=== PATIENT | female | born 1955 | race Caucasian/White ===

== ENCOUNTER 2017-06-07 20:25 | Inpatient (IN) ==
[2017-06-07] MEDS ORDERED: PANTOPRAZOLE 40 MG VIAL IV STA (22:42)
[2017-06-07] MEDS ORDERED: ONDANSETRON 4 MG/2 ML VIAL IV STA (22:42)
[2017-06-07 22:57] LABS: Basophils # 0.1 10*3/uL (0.0-0.2); Basophils % 0.8 % (0.0-0.8); Eosinophils % 0.3 % (0.00-10.9); Hematocrit 36.3 VOL% (35.7-47.0); Hemoglobin 12.8 GM/DL (12.0-16.0); Immature Granulocytes % 0.4 %; Immature Granulocytes Absolute 0.04 #; Lymphocytes # 2.3 10*3/uL (1.4-4.0); Lymphocytes % 23.8 % (21.3-54.2); Mean Corpuscular HGB Conc 35.3 GM/DL (32-36); Mean Corpuscular Hemoglobin 39 PG (27-34); Mean Platelet Volume 12.8 FL (9.6-12.0); Monocytes # 0.6 10*3/uL (0.11-0.8); Monocytes % 5.7 % (1.7-12.7); NRBC # 0.02 10*3/uL; Neutrophils # 6.8 10*3/uL (1.4-7.4); Platelet Count 76 T/CUMM (130-400); Red Blood Count 3.27 MC/CUMM (3.8-5.5); Red Cell Distribution Width 17.1 % (9.3-17.3); White Blood Count 9.9 T/CUMM (4-12)
[2017-06-07 23:15] LABS: Alanine Aminotransferase 61 U/L (13-56); Albumin 3.4 G/DL (3.4-5.0); Alkaline Phosphatase 162 U/L (45-117); Amylase 26 U/L (25-115); Aspartate Amino Transferase 61 U/L (0-37); Blood Urea Nitrogen 9 MG/DL (7-18); Calcium 9.7 MG/DL (8.5-10.1); Glucose 460 MG/DL (74-106); Osmolality,Calculated 284.4 MOS/KG (273-304); Potassium 4.8 MMOL/L (3.5-5.1); Sodium 133 MMOL/L (136-145); Total Protein 6.9 G/DL (6.4-8.3); Troponin I Only < 0.015 NG/ML (0.00-0.045)
[2017-06-07] MEDS ORDERED: ONDANSETRON 4 MG/2 ML VIAL ONE (23:21)
[2017-06-07] MEDS ORDERED: PANTOPRAZOLE 40 MG VIAL IV ONE (23:21)
[2017-06-07 23:23] LABS: Ammonia 68 UMOL/L (11-32)
[2017-06-08] MEDS ORDERED: DEXTROSE 50% 25 GM/50 ML VIAL IV PRN (03:32)
[2017-06-08] MEDS ORDERED: ONDANSETRON 4 MG/2 ML VIAL IV PRN (03:32)
[2017-06-08] MEDS ORDERED: GLUCAGON 1 MG VIAL IM PRN (03:32)
[2017-06-08] MEDS ORDERED: SPIRONOLACTONE 100 MG TABLET PO PRN (03:37)
[2017-06-08] MEDS: LACTULOSE 20 GM/30 ML UDCUP PO SCH ×6 (05:11→23:24)
[2017-06-08] MEDS: INSULIN LISPRO 100 UNIT/ML SUBCUT SCH ×5 (05:11→21:22)
[2017-06-08] MEDS: SODIUM CHLORIDE 0.9% 1,000 ML IV SCH ×2 (05:12→23:24)
[2017-06-08 06:47] LABS: Basophils # 0.1 10*3/uL (0.0-0.2); Eosinophils # 0.1 10*3/uL (0.0-0.87); Eosinophils % 1.9 % (0.00-10.9); Hematocrit 28.7 VOL% (35.7-47.0); Immature Granulocytes % 0.5 %; Immature Granulocytes Absolute 0.04 #; Lymphocytes # 2.9 10*3/uL (1.4-4.0); Lymphocytes % 40.1 % (21.3-54.2); Mean Corpuscular HGB Conc 36.2 GM/DL (32-36); Mean Corpuscular Hemoglobin 39 PG (27-34); Mean Corpuscular Volume 108.7 FL (87-102); Mean Platelet Volume 13.3 FL (9.6-12.0); Monocytes # 0.5 10*3/uL (0.11-0.8); Monocytes % 7.3 % (1.7-12.7); Neutrophils # 3.6 10*3/uL (1.4-7.4); Neutrophils % 49.2 % (38.7-73.9); Red Blood Count 2.64 MC/CUMM (3.8-5.5); Red Cell Distribution Width 17.1 % (9.3-17.3); White Blood Count 7.3 T/CUMM (4-12)
[2017-06-08 06:49] LABS: Hemoglobin 10.4 GM/DL (12.0-16.0); Platelet Count 59 T/CUMM (130-400)
[2017-06-08 07:13] LABS: Albumin 2.6 G/DL (3.4-5.0); Bilirubin,Total 3.2 MG/DL (0.2-1.0); Calcium 8.6 MG/DL (8.5-10.1); Osmolality,Calculated 277.1 MOS/KG (273-304); Total Protein 5.2 G/DL (6.4-8.3)
[2017-06-08] MEDS: ESTROPIPATE 0.75 MG TABLET PO SCH (09:42)
[2017-06-08] MEDS: ASCORBIC ACID 500 MG TABLET PO SCH ×2 (09:44→21:22)
[2017-06-08] MEDS: FLUTICASONE 50 MCG NASAL SPRAY 16 GM BOTTLE BOTH NARES SCH (10:58)
[2017-06-08 17:57] LABS: Apearance,Urine CLEAR (Clear); Bacteria,Urine Occasional /HPF (Few); Bilirubin,Urine Negative (Negative); Blood, Urine Negative (Negative); Glucose,Urine (UA) >=500 mg/dL (Negative); Ketones,Urine 20 mg/dL (Negative); Mucus,Urine Occasional /LPF (Occasional); Nitrite,Urine Negative (Negative); Protein,Urine Negative; RBC,Urine <1 /HPF (0-4); Squamous Epithelial Cell,Urine Occasional /HPF (0-10); Urine Color Yellow (Yellow); Urine Specific Gravity 1.036 (1.001-1.035); WBC,Urine <1 /HPF (0-6)
[2017-06-08] MEDS ORDERED: CYCLOBENZAPRINE 10 MG TABLET PO SCH (21:00)
[2017-06-08] MEDS ORDERED: AMITRIPTYLINE 25 MG TABLET PO SCH (21:00)
[2017-06-09] MEDS: LACTULOSE 20 GM/30 ML UDCUP PO SCH ×3 (03:20→12:16)
[2017-06-09] MEDS: INSULIN LISPRO 100 UNIT/ML SUBCUT SCH ×2 (08:49→12:15)
[2017-06-09] MEDS: FLUTICASONE 50 MCG NASAL SPRAY 16 GM BOTTLE BOTH NARES SCH (08:50)
[2017-06-09] MEDS: ESTROPIPATE 0.75 MG TABLET PO SCH (08:50)
[2017-06-09] MEDS: ASCORBIC ACID 500 MG TABLET PO SCH (08:50)
[2017-06-09 10:17] VITALS: BP 139/66
== END 2017-06-09 12:50 | disposition home or self-care (01) | DRG 433 ==
LOC: N.ED 20:25 → N.EDINP 06-08 03:19 → N.2E 06-08 03:44 → N.5E 06-08 04:18
PROVIDERS: ADMIT Internal Medicine Infectious Disease; ATTEND Internal Medicine Infectious Disease

== ENCOUNTER 2017-08-15 22:55 | Inpatient (IN) ==
[2017-08-16] MEDS ORDERED: DEXTROSE 50% 25 GM/50 ML VIAL IV PRN (05:04)
[2017-08-16] MEDS ORDERED: ONDANSETRON 4 MG/2 ML VIAL IV PRN (05:04)
[2017-08-16] MEDS ORDERED: GLUCAGON 1 MG VIAL IM PRN (05:04)
[2017-08-16] MEDS ORDERED: ENOXAPARIN 40 MG/0.4 ML SYRINGE SUBCUT SCH (05:30)
[2017-08-16 05:43] LABS: Allen Test Positive; Pt O2 Delivery Device Room Air
[2017-08-16 05:44] LABS: ABG Base Excess 2.3 MMOL/L (-2.5-2.5); ABG HCO3 26.5 MMOL/L (20-26); ABG Oxygen Saturation 98.6 % (95-100); ABG PH 7.466 (7.35-7.45); ABG PO2 97.1 MM HG (80-95); ABG TCO2 23.5 MMOL/L (23-27)
[2017-08-16] MEDS: SODIUM CHLORIDE 0.9% 1,000 ML IV SCH ×2 (06:20→17:53)
[2017-08-16 06:23] LABS: Eosinophils # 0.1 10*3/uL (0.0-0.87); Eosinophils % 2.7 % (0.00-10.9); Hematocrit 26.8 VOL% (35.7-47.0); Hemoglobin 9.8 GM/DL (12.0-16.0); Immature Granulocytes % 0.2 %; Immature Granulocytes Absolute 0.01 #; Lymphocytes # 2.1 10*3/uL (1.4-4.0); Lymphocytes % 50.4 % (21.3-54.2); Mean Corpuscular HGB Conc 36.6 GM/DL (32-36); Mean Corpuscular Hemoglobin 38 PG (27-34); Mean Corpuscular Volume 103.5 FL (87-102); Mean Platelet Volume 11.7 FL (9.6-12.0); Monocytes # 0.3 10*3/uL (0.11-0.8); Monocytes % 7.8 % (1.7-12.7); NRBC # 0.02 10*3/uL; Neutrophils # 1.6 10*3/uL (1.4-7.4); Neutrophils % 37.9 % (38.7-73.9); Platelet Count 55 T/CUMM (130-400); Red Blood Count 2.59 MC/CUMM (3.8-5.5); Red Cell Distribution Width 14.2 % (9.3-17.3); White Blood Count 4.1 T/CUMM (4-12)
[2017-08-16 06:34] LABS: Ammonia 150 UMOL/L (11-32)
[2017-08-16 06:39] LABS: INR 1.2; PT Patient Result 12.2 SECS; Partial Thromboplastin Time 26.9 SECS (0-40)
[2017-08-16 06:50] LABS: Eosinophils 4 % (0-10); Hypochromasia 1+; Lymphocytes 42 % (20-55); Ovalocytes Slight; Platelet Estimate Decreased; Segmented Neutrophils 50 % (50-85); Total Cells Counted 100
[2017-08-16 06:55] LABS: Albumin 2.6 G/DL (3.4-5.0); Bilirubin,Total 1.8 MG/DL (0.2-1.0); Calcium 8.4 MG/DL (8.5-10.1); Osmolality,Calculated 284.4 MOS/KG (273-304); Potassium 3.5 MMOL/L (3.5-5.1); Thyroid Stimulating Hormone 1.49 uIU/ml (0.358-3.74); Total Protein 5.2 G/DL (6.4-8.3)
[2017-08-16 07:01] LABS: Troponin I Only < 0.015 NG/ML (0.00-0.045)
[2017-08-16] MEDS: INSULIN REGULAR 100 UNIT/ML SUBCUT SCH ×3 (07:06→17:52)
[2017-08-16] MEDS ORDERED: MAGNESIUM SULF RIDER 2 GM in PREMIX 1 EACH IV PRN (08:13)
[2017-08-16] MEDS: PANTOPRAZOLE 40 MG TABLET PO SCH (09:15)
[2017-08-16] MEDS: DOCUSATE SODIUM 100 MG CAPSULE PO SCH ×2 (09:15→22:03)
[2017-08-16] MEDS: LACTULOSE 20 GM/30 ML UDCUP PO SCH ×4 (09:15→22:03)
[2017-08-16] MEDS: ALUMINUM/MAGNES/SIMETH MAX STR 30 ML UDCUP PO PRN (17:52)
[2017-08-16 23:49] LABS: Apearance,Urine CLEAR (Clear); Bilirubin,Urine Negative (Negative); Blood, Urine Negative (Negative); Glucose,Urine (UA) >=500 mg/dL (Negative); Ketones,Urine 5 mg/dL (Negative); Nitrite,Urine Negative (Negative); Protein,Urine Negative; Squamous Epithelial Cell,Urine Occasional /HPF (0-10); Urine Color Yellow (Yellow); Urine Specific Gravity 1.014 (1.001-1.035); WBC,Urine 1 /HPF (0-6)
[2017-08-17] MEDS: INSULIN REGULAR 100 UNIT/ML SUBCUT SCH ×4 (00:18→18:32)
[2017-08-17] MEDS: ALUMINUM/MAGNES/SIMETH MAX STR 30 ML UDCUP PO PRN (00:20)
[2017-08-17] MEDS: SODIUM CHLORIDE 0.9% 1,000 ML IV SCH ×3 (02:32→16:53)
[2017-08-17] MEDS: LACTULOSE 20 GM/30 ML UDCUP PO SCH ×6 (02:37→21:49)
[2017-08-17] MEDS: PANTOPRAZOLE 40 MG TABLET PO SCH (10:33)
[2017-08-17] MEDS: DOCUSATE SODIUM 100 MG CAPSULE PO SCH ×2 (10:33→21:49)
[2017-08-17] MEDS ORDERED: ONDANSETRON 4 MG TABLET PO PRN (15:25)
[2017-08-17] MEDS ORDERED: SPIRONOLACTONE 50 MG TABLET PO PRN (15:25)
[2017-08-17] MEDS ORDERED: AMITRIPTYLINE 75 MG TABLET PO PRN (15:25)
[2017-08-17 16:36] LABS: Basophils # 0.1 10*3/uL (0.0-0.2); Basophils % 0.8 % (0.0-0.8); Eosinophils # 0.1 10*3/uL (0.0-0.87); Eosinophils % 0.7 % (0.00-10.9); Hematocrit 31.7 VOL% (35.7-47.0); Hemoglobin 11.1 GM/DL (12.0-16.0); Immature Granulocytes % 0.3 %; Immature Granulocytes Absolute 0.02 #; Lymphocytes # 2.1 10*3/uL (1.4-4.0); Lymphocytes % 28.4 % (21.3-54.2); Mean Corpuscular Hemoglobin 38 PG (27-34); Mean Corpuscular Volume 107.8 FL (87-102); Mean Platelet Volume 12.7 FL (9.6-12.0); Monocytes # 0.6 10*3/uL (0.11-0.8); Monocytes % 7.7 % (1.7-12.7); Neutrophils # 4.5 10*3/uL (1.4-7.4); Neutrophils % 62.1 % (38.7-73.9); Red Blood Count 2.94 MC/CUMM (3.8-5.5); Red Cell Distribution Width 14.3 % (9.3-17.3); White Blood Count 7.3 T/CUMM (4-12)
[2017-08-17 16:38] LABS: Platelet Count 68 T/CUMM (130-400)
[2017-08-17 16:58] LABS: Calcium 7.2 MG/DL (8.5-10.1); Osmolality,Calculated 274.2 MOS/KG (273-304); Potassium 3.2 MMOL/L (3.5-5.1)
[2017-08-17 17:14] LABS: Folate 14.4 NG/ML (5.4-24.0)
[2017-08-17] MEDS ORDERED: POTASSIUM CHLORIDE RIDER 10 MEQ in PREMIX 1 EACH IV PRN (17:58)
[2017-08-17] MEDS: POTASSIUM CHLORIDE 20 MEQ TABLET PO PRN (21:49)
[2017-08-17] MEDS: RIFAXIMIN 550 MG TABLET PO SCH (21:49)
[2017-08-17] MEDS: ASCORBIC ACID 500 MG TABLET PO SCH (21:49)
[2017-08-17] MEDS: INSULIN GLARGINE 100 UNIT/ML SUBCUT SCH (21:53)
[2017-08-17] MEDS: CALCIUM (CARBONATE)/VITAMIN D 600 MG-400 UNIT TABLET PO SCH (21:58)
[2017-08-18] MEDS: POTASSIUM CHLORIDE 20 MEQ TABLET PO PRN ×3 (01:18→05:36)
[2017-08-18] MEDS: INSULIN REGULAR 100 UNIT/ML SUBCUT SCH ×4 (01:18→18:15)
[2017-08-18] MEDS: SODIUM CHLORIDE 0.9% 1,000 ML IV SCH ×3 (01:21→18:04)
[2017-08-18 05:44] LABS: Basophils # 0.1 10*3/uL (0.0-0.2); Basophils % 0.9 % (0.0-0.8); Eosinophils % 0.5 % (0.00-10.9); Hematocrit 32.9 VOL% (35.7-47.0); Hemoglobin 11.5 GM/DL (12.0-16.0); Immature Granulocytes % 0.4 %; Immature Granulocytes Absolute 0.03 #; Lymphocytes # 1.5 10*3/uL (1.4-4.0); Lymphocytes % 18.7 % (21.3-54.2); Mean Corpuscular Hemoglobin 37 PG (27-34); Mean Corpuscular Volume 106.5 FL (87-102); Mean Platelet Volume 11.9 FL (9.6-12.0); Monocytes # 0.6 10*3/uL (0.11-0.8); Neutrophils # 5.7 10*3/uL (1.4-7.4); Neutrophils % 71.5 % (38.7-73.9); Platelet Count 61 T/CUMM (130-400); Red Blood Count 3.09 MC/CUMM (3.8-5.5); Red Cell Distribution Width 14.1 % (9.3-17.3); White Blood Count 7.9 T/CUMM (4-12)
[2017-08-18 06:08] LABS: Calcium 7.3 MG/DL (8.5-10.1); Macrocytosis Slight; Osmolality,Calculated 281.7 MOS/KG (273-304); Potassium 3.7 MMOL/L (3.5-5.1)
[2017-08-18 06:09] LABS: Target Cells Slight
[2017-08-18 06:10] LABS: Hypochromasia 1+; Platelet Estimate Decreased
[2017-08-18 06:13] LABS: Albumin 2.7 G/DL (3.4-5.0); Bilirubin,Direct 1.08 MG/DL (0.0-0.20); Bilirubin,Indirect 2.1 MG/DL (0.0-1.0); Bilirubin,Total 3.2 MG/DL (0.2-1.0); Total Protein 5.5 G/DL (6.4-8.3)
[2017-08-18] MEDS: METOCLOPRAMIDE 10 MG/2 ML VIAL IV SCH ×3 (07:19→16:22)
[2017-08-18] MEDS: DOCUSATE SODIUM 100 MG CAPSULE PO SCH ×2 (09:32→21:44)
[2017-08-18] MEDS: CALCIUM (CARBONATE)/VITAMIN D 600 MG-400 UNIT TABLET PO SCH ×2 (09:33→21:44)
[2017-08-18] MEDS: PANTOPRAZOLE 40 MG TABLET PO SCH (09:33)
[2017-08-18] MEDS: RIFAXIMIN 550 MG TABLET PO SCH ×2 (09:34→21:44)
[2017-08-18] MEDS: LACTULOSE 20 GM/30 ML UDCUP PO SCH ×3 (09:34→21:42)
[2017-08-18] MEDS: ASCORBIC ACID 500 MG TABLET PO SCH ×2 (09:34→21:44)
[2017-08-18] MEDS: FLUTICASONE 50 MCG NASAL SPRAY 16 GM BOTTLE BOTH NARES SCH (09:34)
[2017-08-18] MEDS: FUROSEMIDE 20 MG TABLET PO SCH (09:34)
[2017-08-18] MEDS: ESTROPIPATE 0.75 MG TABLET PO SCH (09:34)
[2017-08-18] MEDS: INSULIN GLARGINE 100 UNIT/ML SUBCUT SCH (21:40)
[2017-08-19] MEDS: INSULIN REGULAR 100 UNIT/ML SUBCUT SCH ×3 (00:26→12:45)
[2017-08-19 05:44] LABS: Basophils # 0.1 10*3/uL (0.0-0.2); Basophils % 0.8 % (0.0-0.8); Eosinophils # 0.2 10*3/uL (0.0-0.87); Eosinophils % 2.5 % (0.00-10.9); Hematocrit 25.2 VOL% (35.7-47.0); Hemoglobin 8.9 GM/DL (12.0-16.0); Immature Granulocytes % 0.5 %; Immature Granulocytes Absolute 0.04 #; Lymphocytes # 1.8 10*3/uL (1.4-4.0); Lymphocytes % 20.8 % (21.3-54.2); Mean Corpuscular HGB Conc 35.3 GM/DL (32-36); Mean Corpuscular Hemoglobin 38 PG (27-34); Mean Corpuscular Volume 107.2 FL (87-102); Mean Platelet Volume 13.1 FL (9.6-12.0); Neutrophils # 5.6 10*3/uL (1.4-7.4); Neutrophils % 64.4 % (38.7-73.9); Red Blood Count 2.35 MC/CUMM (3.8-5.5); Red Cell Distribution Width 14.2 % (9.3-17.3); White Blood Count 8.7 T/CUMM (4-12)
[2017-08-19 05:51] LABS: Platelet Count 46 T/CUMM (130-400)
[2017-08-19 05:56] LABS: Calcium 7.6 MG/DL (8.5-10.1); Osmolality,Calculated 274.8 MOS/KG (273-304); Potassium 3.2 MMOL/L (3.5-5.1)
[2017-08-19 06:16] LABS: Hypochromasia 1+; Ovalocytes Slight; Platelet Estimate Decreased
[2017-08-19 06:17] LABS: Macrocytosis Slight
[2017-08-19] MEDS: METOCLOPRAMIDE 10 MG/2 ML VIAL IV SCH ×2 (07:09→11:08)
[2017-08-19] MEDS: SODIUM CHLORIDE 0.9% 1,000 ML IV SCH (07:13)
[2017-08-19 07:40] VITALS: BP 111/49
[2017-08-19] MEDS ORDERED: MAGNESIUM SULF RIDER 2 GM in PREMIX 1 EACH IV ONE (08:06)
[2017-08-19] MEDS: LACTULOSE 20 GM/30 ML UDCUP PO SCH (09:05)
[2017-08-19] MEDS: RIFAXIMIN 550 MG TABLET PO SCH (09:06)
[2017-08-19] MEDS: FUROSEMIDE 20 MG TABLET PO SCH (09:06)
[2017-08-19] MEDS: ESTROPIPATE 0.75 MG TABLET PO SCH (09:06)
[2017-08-19] MEDS: CALCIUM (CARBONATE)/VITAMIN D 600 MG-400 UNIT TABLET PO SCH (09:06)
[2017-08-19] MEDS: ASCORBIC ACID 500 MG TABLET PO SCH (09:06)
[2017-08-19] MEDS: DOCUSATE SODIUM 100 MG CAPSULE PO SCH (09:07)
[2017-08-19] MEDS: PANTOPRAZOLE 40 MG TABLET PO SCH (09:07)
[2017-08-19] MEDS ORDERED: POTASSIUM CHLORIDE 20 MEQ TABLET PO ONE ×2 (10:02→12:00)
[2017-08-19] MEDS: FLUTICASONE 50 MCG NASAL SPRAY 16 GM BOTTLE BOTH NARES SCH (11:09)
== END 2017-08-19 13:40 | disposition home health service (06) | DRG 442 ==
LOC: N.5E 08-16 03:09 → SUATTDRO 08-16 03:09
PROVIDERS: ADMIT Internal Medicine; ATTEND Internal Medicine

== ENCOUNTER 2017-09-02 09:04 | Inpatient (IN) ==
[2017-09-02] MEDS ORDERED: SODIUM CHLORIDE 0.9% 500 ML IV STA (10:01)
[2017-09-02 10:38] LABS: Basophils # 0.1 10*3/uL (0.0-0.2); Basophils % 2.1 % (0.0-0.8); Eosinophils # 0.1 10*3/uL (0.0-0.87); Eosinophils % 2.1 % (0.00-10.9); Hematocrit 35.8 VOL% (35.7-47.0); Hemoglobin 12.6 GM/DL (12.0-16.0); Immature Granulocytes % 0.3 %; Immature Granulocytes Absolute 0.01 #; Lymphocytes # 1.4 10*3/uL (1.4-4.0); Lymphocytes % 42.1 % (21.3-54.2); Mean Corpuscular HGB Conc 35.2 GM/DL (32-36); Mean Corpuscular Hemoglobin 37 PG (27-34); Mean Corpuscular Volume 106.2 FL (87-102); Mean Platelet Volume 12.3 FL (9.6-12.0); Monocytes # 0.3 10*3/uL (0.11-0.8); Monocytes % 8.7 % (1.7-12.7); Neutrophils # 1.5 10*3/uL (1.4-7.4); Neutrophils % 44.7 % (38.7-73.9); Platelet Count 75 T/CUMM (130-400); Red Blood Count 3.37 MC/CUMM (3.8-5.5); Red Cell Distribution Width 17.3 % (9.3-17.3); White Blood Count 3.4 T/CUMM (4-12)
[2017-09-02 10:45] LABS: INR 1.2; PT Patient Result 12.9 SECS
[2017-09-02 10:52] LABS: Albumin 3.5 G/DL (3.4-5.0); Bilirubin,Total 2.9 MG/DL (0.2-1.0); Calcium 9.3 MG/DL (8.5-10.1); Osmolality,Calculated 278.7 MOS/KG (273-304); Potassium 4.5 MMOL/L (3.5-5.1)
[2017-09-02 11:01] LABS: Apearance,Urine CLEAR (Clear); Bilirubin,Urine Negative (Negative); Blood, Urine Negative (Negative); Glucose,Urine (UA) Negative (Negative); Ketones,Urine 5 mg/dL (Negative); Macrocytosis 1+; Mucus,Urine Occasional /LPF (Occasional); Nitrite,Urine Negative (Negative); Protein,Urine Negative; Squamous Epithelial Cell,Urine Occasional /HPF (0-10); Urine Color Yellow (Yellow); Urine Specific Gravity 1.008 (1.001-1.035); WBC,Urine <1 /HPF (0-6)
[2017-09-02 11:02] LABS: Hypochromasia 1+; Ovalocytes Slight; Platelet Estimate Decreased
[2017-09-02 11:05] LABS: Barbiturates Screen,Urine Negative (Negative); Benzodiazepines Screen,Urine Negative (Negative); Cannabinoid Screen,Urine Negative (Negative); Opiate Screen,Urine Negative (Negative); Phencyclidine Screen,Urine Negative (Negative)
[2017-09-02] MEDS ORDERED: GLUCAGON 1 MG VIAL IM PRN (12:40)
[2017-09-02] MEDS ORDERED: ONDANSETRON 4 MG/2 ML VIAL IV PRN (12:40)
[2017-09-02] MEDS ORDERED: MORPHINE 4 MG/1 ML VIAL IV PRN (12:40)
[2017-09-02] MEDS ORDERED: DEXTROSE 50% 25 GM/50 ML VIAL IV PRN (12:40)
[2017-09-02] MEDS ORDERED: LACTULOSE 160 GM/240 ML BOTTLE RECTAL SCH (12:45)
[2017-09-02] MEDS ORDERED: ENOXAPARIN 40 MG/0.4 ML SYRINGE SUBCUT SCH (13:00)
[2017-09-02] MEDS ORDERED: LACTULOSE 20 GM/30 ML UDCUP PO PRN (13:30)
[2017-09-02] MEDS: SODIUM CHLORIDE 0.9% 1,000 ML IV SCH ×2 (13:47→22:13)
[2017-09-02] MEDS ORDERED: ENOXAPARIN 40 MG/0.4 ML SYRINGE ONE (13:52)
[2017-09-02] MEDS: LACTULOSE 20 GM/30 ML UDCUP PO SCH ×3 (14:02→22:12)
[2017-09-02] MEDS: INSULIN LISPRO 100 UNIT/ML SUBCUT SCH ×3 (16:13→22:14)
[2017-09-03] MEDS: INSULIN LISPRO 100 UNIT/ML SUBCUT SCH ×7 (00:43→21:07)
[2017-09-03] MEDS: LACTULOSE 20 GM/30 ML UDCUP PO SCH ×6 (02:15→21:07)
[2017-09-03 05:38] LABS: Basophils % 1.6 % (0.0-0.8); Eosinophils % 1.6 % (0.00-10.9); Hematocrit 27.4 VOL% (35.7-47.0); Immature Granulocytes % 0.4 %; Immature Granulocytes Absolute 0.01 #; Lymphocytes % 38.8 % (21.3-54.2); Mean Corpuscular HGB Conc 35.4 GM/DL (32-36); Mean Corpuscular Hemoglobin 38 PG (27-34); Mean Corpuscular Volume 106.6 FL (87-102); Mean Platelet Volume 11.9 FL (9.6-12.0); Monocytes # 0.2 10*3/uL (0.11-0.8); Monocytes % 8.2 % (1.7-12.7); Neutrophils # 1.3 10*3/uL (1.4-7.4); Neutrophils % 49.4 % (38.7-73.9); Red Cell Distribution Width 16.6 % (9.3-17.3); White Blood Count 2.6 T/CUMM (4-12)
[2017-09-03 05:39] LABS: Hemoglobin 9.7 GM/DL (12.0-16.0); Red Blood Count 2.57 MC/CUMM (3.8-5.5)
[2017-09-03 05:42] LABS: Platelet Count 60 T/CUMM (130-400)
[2017-09-03 05:59] LABS: Albumin 2.4 G/DL (3.4-5.0); Bilirubin,Total 2.4 MG/DL (0.2-1.0); Calcium 8.2 MG/DL (8.5-10.1); Osmolality,Calculated 290.8 MOS/KG (273-304); Platelet Estimate Decreased; Potassium 3.7 MMOL/L (3.5-5.1); Total Protein 5.5 G/DL (6.4-8.3)
[2017-09-03 06:01] LABS: Giant Platelets Few
[2017-09-03 06:02] LABS: Hypochromasia 1+; Ovalocytes 1+; Polychromasia Few
[2017-09-03] MEDS: SODIUM CHLORIDE 0.9% 1,000 ML IV SCH ×3 (06:21→23:15)
[2017-09-03] MEDS ORDERED: SODIUM CHLORIDE 0.9% 1,000 ML IV PRN (08:04)
[2017-09-03] MEDS: PANTOPRAZOLE 40 MG TABLET PO SCH (10:08)
[2017-09-03] MEDS: RIFAXIMIN 550 MG TABLET PO SCH ×2 (13:33→21:07)
[2017-09-04] MEDS: LACTULOSE 20 GM/30 ML UDCUP PO SCH ×6 (02:23→21:05)
[2017-09-04] MEDS: INSULIN LISPRO 100 UNIT/ML SUBCUT SCH ×6 (02:23→21:05)
[2017-09-04 03:35] LABS: Basophils % 1.5 % (0.0-0.8); Eosinophils # 0.1 10*3/uL (0.0-0.87); Eosinophils % 4.4 % (0.00-10.9); Hematocrit 25.1 VOL% (35.7-47.0); Hemoglobin 9.1 GM/DL (12.0-16.0); Immature Granulocytes % 0.4 %; Immature Granulocytes Absolute 0.01 #; Lymphocytes # 1.1 10*3/uL (1.4-4.0); Lymphocytes % 41.5 % (21.3-54.2); Mean Corpuscular HGB Conc 36.3 GM/DL (32-36); Mean Corpuscular Hemoglobin 38 PG (27-34); Mean Corpuscular Volume 104.6 FL (87-102); Mean Platelet Volume 11.1 FL (9.6-12.0); Monocytes # 0.2 10*3/uL (0.11-0.8); Monocytes % 8.7 % (1.7-12.7); Neutrophils # 1.2 10*3/uL (1.4-7.4); Neutrophils % 43.5 % (38.7-73.9); Platelet Count 69 T/CUMM (130-400); Red Cell Distribution Width 16.7 % (9.3-17.3); White Blood Count 2.8 T/CUMM (4-12)
[2017-09-04 04:00] LABS: Albumin 2.2 G/DL (3.4-5.0); Bilirubin,Total 1.6 MG/DL (0.2-1.0); Calcium 7.9 MG/DL (8.5-10.1); Osmolality,Calculated 284.1 MOS/KG (273-304); Potassium 3.2 MMOL/L (3.5-5.1)
[2017-09-04 05:06] LABS: Poikilocytosis 1+
[2017-09-04] MEDS: SODIUM CHLORIDE 0.9% 1,000 ML IV SCH ×2 (08:02→17:50)
[2017-09-04] MEDS: PANTOPRAZOLE 40 MG TABLET PO SCH (08:46)
[2017-09-04] MEDS: POTASSIUM CHLORIDE 20 MEQ TABLET PO PRN ×4 (08:46→18:10)
[2017-09-04] MEDS: RIFAXIMIN 550 MG TABLET PO SCH ×2 (08:47→21:04)
[2017-09-04 09:07] LABS: % Iron Saturation 66.5 % (18-50); Ferritin 181.2 ng/ml (8-252)
[2017-09-04 09:15] LABS: Folate 12.4 NG/ML (5.4-24.0)
[2017-09-04] MEDS ORDERED: FAMOTIDINE 20 MG TABLET PO PRN (17:12)
[2017-09-04] MEDS: NAPROXEN 250 MG TABLET PO PRN (21:48)
[2017-09-05] MEDS: LACTULOSE 20 GM/30 ML UDCUP PO SCH ×3 (01:00→09:51)
[2017-09-05] MEDS: INSULIN LISPRO 100 UNIT/ML SUBCUT SCH ×4 (01:01→11:52)
[2017-09-05] MEDS: SODIUM CHLORIDE 0.9% 1,000 ML IV SCH ×2 (01:52→09:33)
[2017-09-05] MEDS: NAPROXEN 250 MG TABLET PO PRN (04:32)
[2017-09-05 05:01] LABS: Basophils # 0.1 10*3/uL (0.0-0.2); Basophils % 1.8 % (0.0-0.8); Eosinophils # 0.1 10*3/uL (0.0-0.87); Immature Granulocytes % 0.4 %; Immature Granulocytes Absolute 0.01 #; Lymphocytes # 1.1 10*3/uL (1.4-4.0); Lymphocytes % 39.9 % (21.3-54.2); Mean Corpuscular HGB Conc 34.6 GM/DL (32-36); Mean Corpuscular Hemoglobin 37 PG (27-34); Mean Platelet Volume 11.2 FL (9.6-12.0); Monocytes # 0.3 10*3/uL (0.11-0.8); Monocytes % 11.9 % (1.7-12.7); Neutrophils # 1.1 10*3/uL (1.4-7.4); Red Blood Count 2.43 MC/CUMM (3.8-5.5); Red Cell Distribution Width 16.6 % (9.3-17.3); White Blood Count 2.8 T/CUMM (4-12)
[2017-09-05 05:06] LABS: Platelet Count 59 T/CUMM (130-400)
[2017-09-05 05:13] LABS: Albumin 2.2 G/DL (3.4-5.0); Bilirubin,Total 1.6 MG/DL (0.2-1.0); Calcium 7.8 MG/DL (8.5-10.1); Osmolality,Calculated 282.3 MOS/KG (273-304); Total Protein 4.8 G/DL (6.4-8.3)
[2017-09-05 05:41] LABS: Hypochromasia 1+; Ovalocytes Slight; Platelet Estimate Decreased
[2017-09-05] MEDS: PANTOPRAZOLE 40 MG TABLET PO SCH (08:49)
[2017-09-05] MEDS: RIFAXIMIN 550 MG TABLET PO SCH (08:49)
[2017-09-05 12:36] VITALS: BP 130/62
== END 2017-09-05 01:50 | disposition swing bed (61) | DRG 442 ==
LOC: N.ED 09:04 → N.EDINP 11:12 → N.4E 14:35
PROVIDERS: ADMIT Internal Medicine; ATTEND Internal Medicine

== ENCOUNTER 2017-09-09 07:07 | Inpatient (IN) ==
[2017-09-13 14:59] VITALS: BP 106/53
== END 2017-09-13 18:15 | disposition home health service (06) | DRG 443 ==
LOC: EDUNIT# → EDBD → N.ED 07:07 → N.EDINP 10:15 → N.4E 11:10
PROVIDERS: ADMIT Internal Medicine; ATTEND Internal Medicine

== ENCOUNTER 2018-04-02 14:00 | Inpatient (IN) ==
[2018-04-02 14:40] LABS: Basophils # 0.1 10*3/uL (0.0-0.2); Eosinophils # 0.2 10*3/uL (0.0-0.87); Eosinophils % 3.3 % (0.00-10.9); Hematocrit 28.7 VOL% (35.7-47.0); Hemoglobin 9.9 GM/DL (12.0-16.0); Immature Granulocytes % 0.5 %; Immature Granulocytes Absolute 0.03 #; Lymphocytes # 2.2 10*3/uL (1.4-4.0); Lymphocytes % 37.7 % (21.3-54.2); Mean Corpuscular HGB Conc 34.5 GM/DL (32-36); Mean Corpuscular Hemoglobin 38 PG (27-34); Mean Corpuscular Volume 108.7 FL (87-102); Mean Platelet Volume 12.2 FL (9.6-12.0); Monocytes # 0.4 10*3/uL (0.11-0.8); Neutrophils % 50.5 % (38.7-73.9); Platelet Count 81 T/CUMM (130-400); Red Blood Count 2.64 MC/CUMM (3.8-5.5); Red Cell Distribution Width 16.5 % (9.3-17.3); White Blood Count 5.8 T/CUMM (4-12)
[2018-04-02 14:58] LABS: Albumin 2.8 G/DL (3.4-5.0); Bilirubin,Total 3.6 MG/DL (0.2-1.0); Osmolality,Calculated 280.4 MOS/KG (273-304); Potassium 3.5 MMOL/L (3.5-5.1); Total Protein 5.7 G/DL (6.4-8.3)
[2018-04-02 15:03] LABS: Anisocytosis 1+; Hypochromasia Slight
[2018-04-02 15:04] LABS: Platelet Estimate Decreased
[2018-04-02 15:18] LABS: INR 1.3; PT Patient Result 14.3 SECS
[2018-04-02] MEDS ORDERED: ONDANSETRON 4 MG/2 ML VIAL IV STA (15:27)
[2018-04-02] MEDS ORDERED: THIAMINE INJ 100 MG, FOLIC ACID INJ 1 MG, MULTIVITAMIN INJ 10 ML in SODIUM CHLORIDE 0.9... IV ONE (15:27)
[2018-04-02 15:41] LABS: Apearance,Urine Slightly Hazy (Clear); Bilirubin,Urine Negative (Negative); Blood, Urine Negative (Negative); Glucose,Urine (UA) Negative (Negative); Ketones,Urine 5 mg/dL (Negative); Mucus,Urine Many /LPF (Occasional); Nitrite,Urine Negative (Negative); Protein,Urine 30 MG/DL; RBC,Urine 5 /HPF (0-4); Squamous Epithelial Cell,Urine Occasional /HPF (0-10); Urine Specific Gravity 1.025 (1.001-1.035); WBC,Urine 40 /HPF (0-6)
[2018-04-02 15:42] LABS: Urine Color Dark yellow (Yellow)
[2018-04-02] MEDS ORDERED: ACETAMINOPHEN 325 MG TABLET PO PRN (18:23)
[2018-04-02] MEDS ORDERED: GLUCAGON 1 MG VIAL IM PRN (18:23)
[2018-04-02] MEDS ORDERED: DEXTROSE 50% 25 GM/50 ML SYRINGE IV PRN (18:23)
[2018-04-02] MEDS ORDERED: BISACODYL 5 MG TABLET PO PRN (18:23)
[2018-04-02] MEDS: SODIUM CHLORIDE 0.9% 1,000 ML IV SCH (20:42)
[2018-04-02] MEDS: DOCUSATE SODIUM 100 MG CAPSULE PO SCH (22:17)
[2018-04-02] MEDS: INSULIN LISPRO 100 UNIT/ML SUBCUT SCH (22:17)
[2018-04-03] MEDS: diphenhydrAMINE CAP 25 MG CAPSULE PO PRN (01:16)
[2018-04-03 05:10] LABS: Basophils % 1.2 % (0.0-0.8); Eosinophils # 0.2 10*3/uL (0.0-0.87); Eosinophils % 4.9 % (0.00-10.9); Hemoglobin 7.9 GM/DL (12.0-16.0); Immature Granulocytes % 0.3 %; Immature Granulocytes Absolute 0.01 #; Lymphocytes # 1.4 10*3/uL (1.4-4.0); Lymphocytes % 43.8 % (21.3-54.2); Mean Corpuscular HGB Conc 34.3 GM/DL (32-36); Mean Corpuscular Hemoglobin 38 PG (27-34); Mean Corpuscular Volume 109.5 FL (87-102); Monocytes # 0.3 10*3/uL (0.11-0.8); Monocytes % 7.6 % (1.7-12.7); Neutrophils # 1.4 10*3/uL (1.4-7.4); Neutrophils % 42.2 % (38.7-73.9); Red Cell Distribution Width 16.3 % (9.3-17.3); White Blood Count 3.3 T/CUMM (4-12)
[2018-04-03 05:19] LABS: Platelet Count 51 T/CUMM (130-400)
[2018-04-03 05:29] LABS: Hypochromasia 1+
[2018-04-03 05:30] LABS: Macrocytosis 1+; Ovalocytes Slight
[2018-04-03 05:31] LABS: Platelet Estimate Decreased
[2018-04-03 05:33] LABS: Calcium 7.5 MG/DL (8.5-10.1); Osmolality,Calculated 286.1 MOS/KG (273-304); Potassium 3.3 MMOL/L (3.5-5.1); Thyroid Stimulating Hormone 1.12 uIU/ml (0.358-3.74)
[2018-04-03] MEDS ORDERED: MAGNESIUM SULF RIDER 2 GM in PREMIX 1 EACH IV ONE (08:00)
[2018-04-03 08:57] LABS: Hematocrit 22.2 VOL% (35.7-47.0); Hemoglobin 7.5 GM/DL (12.0-16.0)
[2018-04-03] MEDS: INSULIN LISPRO 100 UNIT/ML SUBCUT SCH ×5 (09:12→22:15)
[2018-04-03] MEDS: DOCUSATE SODIUM 100 MG CAPSULE PO SCH ×2 (09:15→20:58)
[2018-04-03] MEDS: PANTOPRAZOLE 40 MG TABLET PO SCH (09:16)
[2018-04-03] MEDS ORDERED: SODIUM CHLORIDE 0.9% 1,000 ML IV PRN (10:56)
[2018-04-03] MEDS: POTASSIUM CHLORIDE RIDER 10 MEQ in PREMIX 1 EACH IV SCH ×4 (11:22→16:58)
[2018-04-03 11:27] LABS: Basophils # 0.1 10*3/uL (0.0-0.2); Basophils % 1.8 % (0.0-0.8); Eosinophils # 0.2 10*3/uL (0.0-0.87); Hematocrit 23.5 VOL% (35.7-47.0); Hemoglobin 7.8 GM/DL (12.0-16.0); Immature Granulocytes % 0.6 %; Immature Granulocytes Absolute 0.02 #; Lymphocytes # 1.4 10*3/uL (1.4-4.0); Lymphocytes % 40.8 % (21.3-54.2); Mean Corpuscular HGB Conc 33.2 GM/DL (32-36); Mean Corpuscular Hemoglobin 37 PG (27-34); Mean Corpuscular Volume 112.4 FL (87-102); Mean Platelet Volume 12.1 FL (9.6-12.0); Monocytes # 0.2 10*3/uL (0.11-0.8); Neutrophils # 1.5 10*3/uL (1.4-7.4); Neutrophils % 44.8 % (38.7-73.9); Red Blood Count 2.09 MC/CUMM (3.8-5.5); White Blood Count 3.3 T/CUMM (4-12)
[2018-04-03 11:30] LABS: Platelet Count 53 T/CUMM (130-400)
[2018-04-03 11:45] LABS: Hypochromasia 1+; Ovalocytes Slight; Platelet Estimate Decreased
[2018-04-03 11:46] LABS: Macrocytosis Slight
[2018-04-03 11:51] LABS: % Iron Saturation 45.6 % (18-50); Ferritin 106.7 ng/ml (8-252)
[2018-04-03 12:00] LABS: Folate 15.7 NG/ML (5.4-24.0); Vitamin B12 > 2000 PG/ML (211-911)
[2018-04-03 12:33] LABS: Sedimentation Rate-Westergren 10 MM/HR (0-30)
[2018-04-03] MEDS: GABAPENTIN 100 MG CAPSULE PO SCH (20:58)
[2018-04-03] MEDS: ONDANSETRON 4 MG/2 ML VIAL IV PRN (21:02)
[2018-04-04] MEDS ORDERED: MAGNESIUM SULF RIDER 2 GM in PREMIX 1 EACH IV PRN
[2018-04-04] MEDS ORDERED: MAGNESIUM SULF RIDER 4 GM in PREMIX 1 EACH IV PRN
[2018-04-04] MEDS: SODIUM CHLORIDE 0.9% 1,000 ML IV SCH ×4 (01:57→19:20)
[2018-04-04] MEDS: POTASSIUM CHLORIDE RIDER 10 MEQ in PREMIX 1 EACH IV SCH ×2 (01:58→04:56)
[2018-04-04 02:44] LABS: Basophils # 0.1 10*3/uL (0.0-0.2); Basophils % 1.1 % (0.0-0.8); Eosinophils # 0.2 10*3/uL (0.0-0.87); Eosinophils % 3.8 % (0.00-10.9); Hematocrit 32.2 VOL% (35.7-47.0); Immature Granulocytes % 0.5 %; Immature Granulocytes Absolute 0.02 #; Lymphocytes # 1.6 10*3/uL (1.4-4.0); Lymphocytes % 35.1 % (21.3-54.2); Mean Corpuscular HGB Conc 32.9 GM/DL (32-36); Mean Corpuscular Hemoglobin 32 PG (27-34); Mean Platelet Volume 12.1 FL (9.6-12.0); Monocytes # 0.3 10*3/uL (0.11-0.8); Neutrophils # 2.3 10*3/uL (1.4-7.4); Neutrophils % 52.5 % (38.7-73.9); Platelet Count 57 T/CUMM (130-400); Red Cell Distribution Width 25.5 % (9.3-17.3); White Blood Count 4.4 T/CUMM (4-12)
[2018-04-04 02:56] LABS: Calcium 7.5 MG/DL (8.5-10.1); Osmolality,Calculated 282.3 MOS/KG (273-304); Potassium 4.2 MMOL/L (3.5-5.1)
[2018-04-04 03:01] LABS: Albumin 2.4 G/DL (3.4-5.0); Bilirubin,Direct 0.9 MG/DL (0.0-0.20); Bilirubin,Indirect 1.1 MG/DL (0.0-1.0); Hemoglobin 10.6 GM/DL (12.0-16.0); Red Blood Count 3.32 MC/CUMM (3.8-5.5); Total Protein 4.8 G/DL (6.4-8.3)
[2018-04-04] MEDS: ONDANSETRON 4 MG/2 ML VIAL IV PRN ×2 (03:24→13:10)
[2018-04-04] MEDS: INSULIN LISPRO 100 UNIT/ML SUBCUT SCH ×4 (08:36→21:20)
[2018-04-04] MEDS: DOCUSATE SODIUM 100 MG CAPSULE PO SCH (10:23)
[2018-04-04] MEDS: GABAPENTIN 100 MG CAPSULE PO SCH (10:24)
[2018-04-04] MEDS: PANTOPRAZOLE 40 MG TABLET PO SCH (10:24)
[2018-04-04 10:58] LABS: Hemoglobin A1 (Alkaline) 98.2 % (96.5-98.5); Hemoglobin A2 (Alkaline) 1.8 % (1.5-3.5)
[2018-04-04] MEDS ORDERED: MAGNESIUM HYDROXIDE SUSP 30 ML UDCUP PO PRN (11:36)
[2018-04-04] MEDS ORDERED: ENOXAPARIN 40 MG/0.4 ML SYRINGE SUBCUT SCH (17:00)
[2018-04-05] MEDS: DOCUSATE SODIUM 100 MG CAPSULE PO SCH ×3 (03:04→21:20)
[2018-04-05] MEDS: GABAPENTIN 100 MG CAPSULE PO SCH ×3 (03:04→21:20)
[2018-04-05 08:42] LABS: Basophils % 0.8 % (0.0-0.8); Eosinophils # 0.1 10*3/uL (0.0-0.87); Eosinophils % 3.8 % (0.00-10.9); Hematocrit 32.4 VOL% (35.7-47.0); Hemoglobin 10.9 GM/DL (12.0-16.0); Immature Granulocytes % 0.5 %; Immature Granulocytes Absolute 0.02 #; Lymphocytes % 27.9 % (21.3-54.2); Mean Corpuscular HGB Conc 33.6 GM/DL (32-36); Mean Corpuscular Hemoglobin 33 PG (27-34); Monocytes # 0.3 10*3/uL (0.11-0.8); Monocytes % 7.2 % (1.7-12.7); Neutrophils # 2.2 10*3/uL (1.4-7.4); Neutrophils % 59.8 % (38.7-73.9); Platelet Count 50 T/CUMM (130-400); Red Blood Count 3.34 MC/CUMM (3.8-5.5); Red Cell Distribution Width 25.7 % (9.3-17.3); White Blood Count 3.7 T/CUMM (4-12)
[2018-04-05] MEDS: PANTOPRAZOLE 40 MG TABLET PO SCH (09:04)
[2018-04-05 09:05] LABS: Calcium 7.4 MG/DL (8.5-10.1); Osmolality,Calculated 285.4 MOS/KG (273-304); Potassium 4.3 MMOL/L (3.5-5.1)
[2018-04-05] MEDS: INSULIN LISPRO 100 UNIT/ML SUBCUT SCH ×4 (09:06→21:21)
[2018-04-05 10:36] LABS: Ovalocytes Few; Platelet Estimate Decreased; Schistocytes Few
[2018-04-05] MEDS ORDERED: POLYETHYLENE GLYCOL POWDER 17 GM PACK PO SCH (11:00)
[2018-04-05] MEDS ORDERED: MINERAL OIL ENEMA 133 ML BOTTLE RECTAL ONE (13:14)
[2018-04-05] MEDS: SODIUM CHLORIDE 0.9% 1,000 ML IV SCH (15:57)
[2018-04-05] MEDS: LACTULOSE 20 GM/30 ML UDCUP PO SCH (21:21)
[2018-04-05] MEDS: diphenhydrAMINE CAP 25 MG CAPSULE PO PRN (21:25)
[2018-04-06 07:16] LABS: Basophils # 0.1 10*3/uL (0.0-0.2); Basophils % 1.4 % (0.0-0.8); Eosinophils # 0.2 10*3/uL (0.0-0.87); Eosinophils % 3.5 % (0.00-10.9); Hematocrit 32.1 VOL% (35.7-47.0); Hemoglobin 10.6 GM/DL (12.0-16.0); Immature Granulocytes % 0.5 %; Immature Granulocytes Absolute 0.02 #; Lymphocytes # 1.4 10*3/uL (1.4-4.0); Lymphocytes % 32.5 % (21.3-54.2); Mean Corpuscular Hemoglobin 32 PG (27-34); Mean Corpuscular Volume 97.3 FL (87-102); Mean Platelet Volume 10.9 FL (9.6-12.0); Monocytes # 0.4 10*3/uL (0.11-0.8); Monocytes % 8.9 % (1.7-12.7); Neutrophils # 2.3 10*3/uL (1.4-7.4); Neutrophils % 53.2 % (38.7-73.9); Red Cell Distribution Width 25.6 % (9.3-17.3); White Blood Count 4.3 T/CUMM (4-12)
[2018-04-06 07:20] LABS: Platelet Count 43 T/CUMM (130-400)
[2018-04-06 07:34] LABS: Calcium 7.5 MG/DL (8.5-10.1); Osmolality,Calculated 278.5 MOS/KG (273-304); Potassium 4.1 MMOL/L (3.5-5.1)
[2018-04-06] MEDS ORDERED: BISACODYL 10 MG SUPP RECTAL ONE (07:57)
[2018-04-06] MEDS: DOCUSATE SODIUM 100 MG CAPSULE PO SCH (08:37)
[2018-04-06] MEDS: LACTULOSE 20 GM/30 ML UDCUP PO SCH (08:37)
[2018-04-06] MEDS: GABAPENTIN 100 MG CAPSULE PO SCH (08:38)
[2018-04-06] MEDS: PANTOPRAZOLE 40 MG TABLET PO SCH (08:38)
[2018-04-06] MEDS: INSULIN LISPRO 100 UNIT/ML SUBCUT SCH ×2 (08:39→12:10)
[2018-04-06] MEDS: SODIUM CHLORIDE 0.9% 1,000 ML IV SCH (08:40)
[2018-04-06 12:24] VITALS: BP 137/63
== END 2018-04-06 14:46 | DRG 641 ==
LOC: N.EDINP 14:00 → N.ED 14:00 → N.EDINP 20:09 → N.2E 20:20
PROVIDERS: ADMIT Internal Medicine; ATTEND Internal Medicine

== ENCOUNTER 2018-05-14 02:14 | Inpatient (IN) ==
[2018-05-14] MEDS ORDERED: DEXTROSE 50% 25 GM/50 ML SYRINGE IV ONE (02:31)
[2018-05-14] MEDS ORDERED: DEXTROSE 50% 25 GM/50 ML VIAL IV STA (02:58)
[2018-05-14 03:36] LABS: Basophils % 0.8 % (0.0-0.8); Eosinophils # 0.1 10*3/uL (0.0-0.87); Eosinophils % 3.4 % (0.00-10.9); Hematocrit 27.3 VOL% (35.7-47.0); Hemoglobin 8.5 GM/DL (12.0-16.0); Immature Granulocytes % 0.3 %; Immature Granulocytes Absolute 0.01 #; Lymphocytes # 1.5 10*3/uL (1.4-4.0); Lymphocytes % 39.5 % (21.3-54.2); Mean Corpuscular HGB Conc 31.1 GM/DL (32-36); Mean Corpuscular Hemoglobin 38 PG (27-34); Mean Platelet Volume 12.3 FL (9.6-12.0); Monocytes # 0.3 10*3/uL (0.11-0.8); Monocytes % 8.3 % (1.7-12.7); Neutrophils # 1.9 10*3/uL (1.4-7.4); Neutrophils % 47.7 % (38.7-73.9); Platelet Count 66 T/CUMM (130-400); Red Blood Count 2.22 MC/CUMM (3.8-5.5); Red Cell Distribution Width 17.5 % (9.3-17.3); White Blood Count 3.9 T/CUMM (4-12)
[2018-05-14 03:40] LABS: INR 1.2; PT Patient Result 12.9 SECS; Partial Thromboplastin Time 28.9 SECS (0-40)
[2018-05-14] MEDS ORDERED: SODIUM CHLORIDE 0.9% 1,000 ML IV STA (03:42)
[2018-05-14 03:46] LABS: Bilirubin,Total 1.8 MG/DL (0.2-1.0); Calcium 7.5 MG/DL (8.5-10.1); Potassium 3.6 MMOL/L (3.5-5.1); Total Protein 4.4 G/DL (6.4-8.3)
[2018-05-14 03:57] LABS: Apearance,Urine CLEAR (Clear); Bilirubin,Urine Negative (Negative); Blood, Urine Negative (Negative); Glucose,Urine (UA) Negative (Negative); Ketones,Urine Negative (Negative); Mucus,Urine Occasional /LPF (Occasional); Nitrite,Urine Negative (Negative); Protein,Urine Negative; RBC,Urine 1 /HPF (0-4); Squamous Epithelial Cell,Urine Occasional /HPF (0-10); Urine Color Yellow (Yellow); Urine Specific Gravity 1.012 (1.001-1.035); WBC,Urine 1 /HPF (0-6)
[2018-05-14] MEDS ORDERED: DEXTROSE 50% 25 GM/50 ML SYRINGE IV PRN (06:08)
[2018-05-14] MEDS ORDERED: cefTRIAXone 1,000 MG in SYRINGE 1 EACH IV STA (06:10)
[2018-05-14] MEDS ORDERED: SODIUM CHLORIDE 0.9% 100 ML IV ONE (06:19)
[2018-05-14] MEDS ORDERED: HYDROCORTISONE 100 MG VIAL IV STA (06:23)
[2018-05-14] MEDS ORDERED: SODIUM CHLORIDE 0.9% 1,000 ML IV SCH (06:30)
[2018-05-14 07:53] LABS: % Iron Saturation 81.5 % (18-50)
[2018-05-14] MEDS ORDERED: LACTULOSE 320 GM/480 ML BOTTLE RECTAL SCH (09:00)
[2018-05-14] MEDS ORDERED: PANTOPRAZOLE 40 MG VIAL IV SCH (09:00)
[2018-05-14] MEDS: RIFAXIMIN 550 MG TABLET PO SCH ×2 (12:47→21:09)
[2018-05-14] MEDS: LACTULOSE 20 GM/30 ML UDCUP PO SCH ×2 (12:48→21:09)
[2018-05-14] MEDS ORDERED: LACTULOSE 20 GM/30 ML UDCUP PO SCH (15:00)
[2018-05-14] MEDS ORDERED: KETOROLAC 30 MG/1 ML VIAL IV PRN (18:21)
[2018-05-14] MEDS: INSULIN LISPRO 100 UNIT/ML SUBCUT SCH (20:47)
[2018-05-15 07:50] LABS: Basophils % 0.5 % (0.0-0.8); Eosinophils # 0.1 10*3/uL (0.0-0.87); Eosinophils % 1.5 % (0.00-10.9); Hematocrit 24.2 VOL% (35.7-47.0); Hemoglobin 7.6 GM/DL (12.0-16.0); Immature Granulocytes % 0.5 %; Immature Granulocytes Absolute 0.02 #; Lymphocytes # 1.4 10*3/uL (1.4-4.0); Lymphocytes % 35.3 % (21.3-54.2); Mean Corpuscular HGB Conc 31.4 GM/DL (32-36); Mean Corpuscular Hemoglobin 39 PG (27-34); Mean Corpuscular Volume 122.8 FL (87-102); Mean Platelet Volume 12.5 FL (9.6-12.0); Monocytes # 0.3 10*3/uL (0.11-0.8); Monocytes % 8.7 % (1.7-12.7); Neutrophils # 2.1 10*3/uL (1.4-7.4); Neutrophils % 53.5 % (38.7-73.9); Red Blood Count 1.97 MC/CUMM (3.8-5.5); Red Cell Distribution Width 17.1 % (9.3-17.3); White Blood Count 3.9 T/CUMM (4-12)
[2018-05-15 07:51] LABS: Platelet Count 52 T/CUMM (130-400)
[2018-05-15 08:07] LABS: Hypochromasia 1+; Platelet Estimate Decreased
[2018-05-15 08:08] LABS: Calcium 7.7 MG/DL (8.5-10.1); Osmolality,Calculated 290.8 MOS/KG (273-304); Potassium 3.7 MMOL/L (3.5-5.1)
[2018-05-15] MEDS: INSULIN LISPRO 100 UNIT/ML SUBCUT SCH ×4 (08:40→21:41)
[2018-05-15] MEDS: PANTOPRAZOLE 40 MG TABLET PO SCH (09:29)
[2018-05-15] MEDS: RIFAXIMIN 550 MG TABLET PO SCH ×2 (09:29→21:31)
[2018-05-15] MEDS: LACTULOSE 20 GM/30 ML UDCUP PO SCH ×2 (09:29→21:30)
[2018-05-15] MEDS ORDERED: oxyCODONE IR 5 MG TABLET PO PRN (10:54)
[2018-05-15] MEDS ORDERED: SPIRONOLACTONE 50 MG TABLET PO PRN (14:55)
[2018-05-15] MEDS: MAGNESIUM CHLORIDE 64 MG TABLET PO SCH (21:31)
[2018-05-16] MEDS: ONDANSETRON 4 MG/2 ML VIAL IV PRN ×2 (07:40→20:22)
[2018-05-16] MEDS: INSULIN LISPRO 100 UNIT/ML SUBCUT SCH ×4 (08:35→20:35)
[2018-05-16] MEDS: MAGNESIUM CHLORIDE 64 MG TABLET PO SCH ×2 (08:35→20:16)
[2018-05-16] MEDS: PANTOPRAZOLE 40 MG TABLET PO SCH (08:35)
[2018-05-16] MEDS: LACTULOSE 20 GM/30 ML UDCUP PO SCH ×2 (08:35→20:16)
[2018-05-16] MEDS: RIFAXIMIN 550 MG TABLET PO SCH ×2 (08:35→20:25)
[2018-05-17] MEDS: INSULIN LISPRO 100 UNIT/ML SUBCUT SCH ×5 (07:30→22:11)
[2018-05-17] MEDS: RIFAXIMIN 550 MG TABLET PO SCH ×2 (12:48→20:37)
[2018-05-17] MEDS: LACTULOSE 20 GM/30 ML UDCUP PO SCH ×2 (12:48→20:37)
[2018-05-17] MEDS: MAGNESIUM CHLORIDE 64 MG TABLET PO SCH ×2 (12:48→20:37)
[2018-05-17] MEDS: PANTOPRAZOLE 40 MG TABLET PO SCH (12:48)
[2018-05-17] MEDS ORDERED: INSULIN GLARGINE 100 UNIT/ML SUBCUT SCH (21:00)
[2018-05-18 05:48] LABS: Basophils # 0.1 10*3/uL (0.0-0.2); Basophils % 1.1 % (0.0-0.8); Eosinophils # 0.2 10*3/uL (0.0-0.87); Eosinophils % 4.4 % (0.00-10.9); Hematocrit 25.9 VOL% (35.7-47.0); Hemoglobin 8.2 GM/DL (12.0-16.0); Immature Granulocytes % 0.6 %; Immature Granulocytes Absolute 0.03 #; Lymphocytes # 1.5 10*3/uL (1.4-4.0); Lymphocytes % 30.7 % (21.3-54.2); Mean Corpuscular HGB Conc 31.7 GM/DL (32-36); Mean Corpuscular Hemoglobin 38 PG (27-34); Mean Corpuscular Volume 118.8 FL (87-102); Mean Platelet Volume 11.9 FL (9.6-12.0); Monocytes # 0.6 10*3/uL (0.11-0.8); Monocytes % 12.4 % (1.7-12.7); NRBC # 0.02 10*3/uL; Neutrophils # 2.4 10*3/uL (1.4-7.4); Neutrophils % 50.8 % (38.7-73.9); Red Blood Count 2.18 MC/CUMM (3.8-5.5); Red Cell Distribution Width 16.2 % (9.3-17.3); White Blood Count 4.8 T/CUMM (4-12)
[2018-05-18 05:52] LABS: Platelet Count 55 T/CUMM (130-400)
[2018-05-18 06:11] LABS: Platelet Estimate Decreased
[2018-05-18 06:12] LABS: Basophilic Stippling Slight; Macrocytosis 1+; Polychromasia Slight
[2018-05-18 06:13] LABS: Anisocytosis 2+
[2018-05-18 06:16] LABS: Calcium 7.7 MG/DL (8.5-10.1); Osmolality,Calculated 281.3 MOS/KG (273-304); Potassium 3.9 MMOL/L (3.5-5.1)
[2018-05-18] MEDS: INSULIN LISPRO 100 UNIT/ML SUBCUT SCH ×4 (07:55→21:11)
[2018-05-18] MEDS ORDERED: SPIRONOLACTONE 50 MG TABLET PO PRN (10:19)
[2018-05-18] MEDS: RIFAXIMIN 550 MG TABLET PO SCH ×2 (14:19→21:10)
[2018-05-18] MEDS: LACTULOSE 20 GM/30 ML UDCUP PO SCH ×3 (14:19→21:10)
[2018-05-18] MEDS: PANTOPRAZOLE 40 MG TABLET PO SCH (14:19)
[2018-05-18] MEDS: MAGNESIUM CHLORIDE 64 MG TABLET PO SCH ×2 (14:19→21:10)
[2018-05-19] MEDS: MAGNESIUM CHLORIDE 64 MG TABLET PO SCH (08:44)
[2018-05-19] MEDS: PANTOPRAZOLE 40 MG TABLET PO SCH (08:45)
[2018-05-19] MEDS: RIFAXIMIN 550 MG TABLET PO SCH (08:45)
[2018-05-19] MEDS: LACTULOSE 20 GM/30 ML UDCUP PO SCH (08:46)
[2018-05-19] MEDS: INSULIN LISPRO 100 UNIT/ML SUBCUT SCH ×2 (08:47→14:06)
[2018-05-19] MEDS ORDERED: INSULIN GLARGINE 100 UNIT/ML SUBCUT SCH (11:30)
[2018-05-19 12:30] VITALS: BP 114/47
== END 2018-05-19 15:28 | disposition home health service (06) | DRG 441 ==
LOC: SUATTDRO → N.ED 02:14 → N.EDINP 06:05 → SUPCPDRO 06:05 → SUATTDRO 06:05 → N.EDINP 13:40 → N.4E 13:48
PROVIDERS: ADMIT Internal Medicine; ATTEND Internal Medicine

== ENCOUNTER 2018-05-23 14:21 | Observation (INO) ==
[2018-05-23 14:57] LABS: Basophils # 0.1 10*3/uL (0.0-0.2); Basophils % 1.6 % (0.0-0.8); Eosinophils # 0.1 10*3/uL (0.0-0.87); Eosinophils % 3.8 % (0.00-10.9); Hematocrit 31.6 VOL% (35.7-47.0); Immature Granulocytes % 0.3 %; Immature Granulocytes Absolute 0.01 #; Lymphocytes # 1.1 10*3/uL (1.4-4.0); Lymphocytes % 34.8 % (21.3-54.2); Mean Corpuscular HGB Conc 31.6 GM/DL (32-36); Mean Corpuscular Hemoglobin 38 PG (27-34); Mean Corpuscular Volume 120.6 FL (87-102); Mean Platelet Volume 12.3 FL (9.6-12.0); Monocytes # 0.3 10*3/uL (0.11-0.8); Monocytes % 10.4 % (1.7-12.7); Neutrophils # 1.6 10*3/uL (1.4-7.4); Neutrophils % 49.1 % (38.7-73.9); Platelet Count 52 T/CUMM (130-400); Red Blood Count 2.62 MC/CUMM (3.8-5.5); White Blood Count 3.2 T/CUMM (4-12)
[2018-05-23 15:26] LABS: Band Neutrophils 2 % (0-10); Eosinophils 2 % (0-10); Lymphocytes 38 % (20-55); Segmented Neutrophils 45 % (50-85); Total Cells Counted 100
[2018-05-23 15:27] LABS: Anisocytosis 1+; Hypochromasia 1+; Macrocytosis 1+; Platelet Estimate Decreased
[2018-05-23] MEDS ORDERED: PROMETHAZINE 25 MG/1 ML VIAL IM PRN (15:41)
[2018-05-23] MEDS ORDERED: ONDANSETRON 4 MG/2 ML VIAL IV PRN (15:41)
[2018-05-23] MEDS ORDERED: SPIRONOLACTONE 50 MG TABLET PO PRN (15:48)
[2018-05-23] MEDS ORDERED: FUROSEMIDE 40 MG/4 ML VIAL IV ONE (15:50)
[2018-05-23] MEDS ORDERED: GLUCAGON 1 MG VIAL IM PRN (15:51)
[2018-05-23] MEDS ORDERED: DEXTROSE 50% 25 GM/50 ML SYRINGE IV PRN (15:51)
[2018-05-23 16:08] LABS: Albumin 2.3 G/DL (3.4-5.0); Bilirubin,Total 2.7 MG/DL (0.2-1.0); Calcium 8.6 MG/DL (8.5-10.1); Potassium 4.1 MMOL/L (3.5-5.1); Thyroid Stimulating Hormone 4.07 uIU/ml (0.358-3.74); Total Protein 5.3 G/DL (6.4-8.3)
[2018-05-23] MEDS ORDERED: PANTOPRAZOLE 40 MG TABLET PO SCH (17:00)
[2018-05-23] MEDS ORDERED: ALBUMIN 25% 25 GM in PREMIX 1 EACH IV ONE (18:00)
[2018-05-23] MEDS: PANTOPRAZOLE 40 MG TABLET PO SCH (18:36)
[2018-05-23] MEDS: INSULIN LISPRO 100 UNIT/ML SUBCUT SCH ×2 (18:36→23:49)
[2018-05-23] MEDS: LACTULOSE 20 GM/30 ML UDCUP PO SCH ×2 (18:45→21:50)
[2018-05-23] MEDS: RIFAXIMIN 550 MG TABLET PO SCH (20:26)
[2018-05-23] MEDS: CALCIUM (CARBONATE)/VITAMIN D 600 MG-400 UNIT TABLET PO SCH (20:26)
[2018-05-23] MEDS: MAGNESIUM CHLORIDE 64 MG TABLET PO SCH (20:26)
[2018-05-23] MEDS: GABAPENTIN 100 MG CAPSULE PO SCH (20:27)
[2018-05-23] MEDS ORDERED: INSULIN GLARGINE 100 UNIT/ML SUBCUT SCH (21:00)
[2018-05-24 05:16] LABS: Basophils % 1.5 % (0.0-0.8); Eosinophils # 0.1 10*3/uL (0.0-0.87); Eosinophils % 3.3 % (0.00-10.9); Hematocrit 25.7 VOL% (35.7-47.0); Immature Granulocytes % 0.4 %; Immature Granulocytes Absolute 0.01 #; Lymphocytes % 36.9 % (21.3-54.2); Mean Corpuscular HGB Conc 31.1 GM/DL (32-36); Mean Corpuscular Hemoglobin 39 PG (27-34); Mean Corpuscular Volume 124.8 FL (87-102); Mean Platelet Volume 12.6 FL (9.6-12.0); Monocytes # 0.3 10*3/uL (0.11-0.8); Monocytes % 12.5 % (1.7-12.7); Neutrophils # 1.2 10*3/uL (1.4-7.4); Neutrophils % 45.4 % (38.7-73.9); Red Cell Distribution Width 17.2 % (9.3-17.3); White Blood Count 2.7 T/CUMM (4-12)
[2018-05-24 05:17] LABS: Red Blood Count 2.06 MC/CUMM (3.8-5.5)
[2018-05-24 05:18] LABS: Platelet Count 46 T/CUMM (130-400)
[2018-05-24 05:38] LABS: Hypochromasia 2+; Platelet Estimate Decreased
[2018-05-24 05:39] LABS: Target Cells 1+
[2018-05-24] MEDS: LACTULOSE 20 GM/30 ML UDCUP PO SCH ×2 (05:49→09:02)
[2018-05-24 06:12] LABS: Apearance,Urine CLEAR (Clear); Bacteria,Urine Occasional /HPF (Few); Bilirubin,Urine Negative (Negative); Blood, Urine Small mg/dL (Negative); Glucose,Urine (UA) Negative (Negative); Ketones,Urine Negative (Negative); Mucus,Urine Occasional /LPF (Occasional); Nitrite,Urine Negative (Negative); Protein,Urine Negative; RBC,Urine 1 /HPF (0-4); Squamous Epithelial Cell,Urine Occasional /HPF (0-10); Urine Color Yellow (Yellow); Urine Specific Gravity 1.009 (1.001-1.035); Urine Urobilinogen < 2.0 EU/DL (0.2-1.0); WBC,Urine 2 /HPF (0-6)
[2018-05-24] MEDS: INSULIN LISPRO 100 UNIT/ML SUBCUT SCH ×2 (07:02→14:01)
[2018-05-24 07:52] LABS: Barbiturates Screen,Urine Negative (Negative); Benzodiazepines Screen,Urine Negative (Negative); Cannabinoid Screen,Urine Negative (Negative); Opiate Screen,Urine Negative (Negative); Phencyclidine Screen,Urine Negative (Negative)
[2018-05-24 07:54] LABS: Albumin 2.3 G/DL (3.4-5.0); Bilirubin,Total 2.2 MG/DL (0.2-1.0); Osmolality,Calculated 291.7 MOS/KG (273-304); Potassium 4.1 MMOL/L (3.5-5.1); Total Protein 4.7 G/DL (6.4-8.3)
[2018-05-24 08:01] VITALS: BP 105/45
[2018-05-24] MEDS: MAGNESIUM CHLORIDE 64 MG TABLET PO SCH (09:01)
[2018-05-24] MEDS: RIFAXIMIN 550 MG TABLET PO SCH (09:01)
[2018-05-24] MEDS: CALCIUM (CARBONATE)/VITAMIN D 600 MG-400 UNIT TABLET PO SCH (09:01)
[2018-05-24] MEDS: PANTOPRAZOLE 40 MG TABLET PO SCH (09:02)
[2018-05-24] MEDS: GABAPENTIN 100 MG CAPSULE PO SCH (09:02)
[2018-05-29] MEDS ORDERED: ERGOCALCIFEROL 50,000 UNIT CAPSULE PO SCH (09:00)
== END 2018-05-24 12:30 | disposition swing bed (61) ==
LOC: EDBD → EDUNIT# → N.ED 14:21 → N.EDINP 14:21 → SUATTDRO 15:41 → N.4E 17:05
PROVIDERS: ADMIT Internal Medicine Nephrology; ATTEND Phlebology

== ENCOUNTER 2018-06-07 20:27 | Inpatient (IN) ==
[2018-06-07] MEDS ORDERED: SODIUM CHLORIDE 0.9% 1,000 ML IV STA (21:24)
[2018-06-07] MEDS ORDERED: LORazepam 2 MG/1 ML VIAL IV STA (21:34)
[2018-06-07 21:45] LABS: Basophils # 0.1 10*3/uL (0.0-0.2); Basophils % 1.3 % (0.0-0.8); Eosinophils # 0.1 10*3/uL (0.0-0.87); Eosinophils % 2.5 % (0.00-10.9); Hematocrit 30.9 VOL% (35.7-47.0); Immature Granulocytes % 0.3 %; Immature Granulocytes Absolute 0.01 #; Lymphocytes # 1.4 10*3/uL (1.4-4.0); Mean Corpuscular HGB Conc 32.4 GM/DL (32-36); Mean Corpuscular Hemoglobin 38 PG (27-34); Mean Corpuscular Volume 117.5 FL (87-102); Mean Platelet Volume 12.7 FL (9.6-12.0); Monocytes # 0.5 10*3/uL (0.11-0.8); Monocytes % 11.3 % (1.7-12.7); Neutrophils % 50.6 % (38.7-73.9); Red Blood Count 2.63 MC/CUMM (3.8-5.5); Red Cell Distribution Width 15.9 % (9.3-17.3)
[2018-06-07 21:50] LABS: Platelet Count 54 T/CUMM (130-400)
[2018-06-07 21:56] LABS: INR 1.1
[2018-06-07 21:59] LABS: Albumin 2.6 G/DL (3.4-5.0); Bilirubin,Total 3.2 MG/DL (0.2-1.0); Calcium 8.2 MG/DL (8.5-10.1); Osmolality,Calculated 294.6 MOS/KG (273-304); Potassium 4.7 MMOL/L (3.5-5.1); Total Protein 5.8 G/DL (6.4-8.3)
[2018-06-07 22:03] LABS: Apearance,Urine CLEAR (Clear); Bilirubin,Urine Negative (Negative); Blood, Urine Small mg/dL (Negative); Glucose,Urine (UA) Negative (Negative); Ketones,Urine Negative (Negative); Mucus,Urine Occasional /LPF (Occasional); Nitrite,Urine Negative (Negative); Protein,Urine Negative; RBC,Urine 8 /HPF (0-4); Urine Color Yellow (Yellow); Urine Specific Gravity 1.013 (1.001-1.035); Urine Urobilinogen < 2.0 EU/DL (0.2-1.0); WBC,Urine 2 /HPF (0-6)
[2018-06-07 22:28] LABS: Hypochromasia Slight; Macrocytosis 1+; Platelet Estimate Decreased
[2018-06-08] MEDS: LACTULOSE 20 GM/30 ML UDCUP PO SCH ×6 (01:00→22:20)
[2018-06-08] MEDS ORDERED: GLUCAGON 1 MG VIAL IM PRN (01:18)
[2018-06-08] MEDS ORDERED: DEXTROSE 50% 25 GM/50 ML VIAL IV PRN (01:18)
[2018-06-08] MEDS ORDERED: PROMETHAZINE 25 MG/1 ML VIAL IM PRN (01:18)
[2018-06-08] MEDS ORDERED: LORazepam 2 MG/1 ML VIAL IV PRN (01:18)
[2018-06-08] MEDS ORDERED: ONDANSETRON 4 MG/2 ML VIAL IV PRN (01:18)
[2018-06-08] MEDS: SODIUM CHLORIDE 0.9% 1,000 ML IV SCH ×3 (04:30→17:43)
[2018-06-08] MEDS ORDERED: SPIRONOLACTONE 50 MG TABLET PO PRN (05:44)
[2018-06-08 06:43] LABS: Calcium 8.1 MG/DL (8.5-10.1); Osmolality,Calculated 293.6 MOS/KG (273-304); Potassium 3.6 MMOL/L (3.5-5.1)
[2018-06-08] MEDS: INSULIN REGULAR 100 UNIT/ML SUBCUT SCH ×4 (07:17→20:57)
[2018-06-08] MEDS: MAGNESIUM CHLORIDE 64 MG TABLET PO SCH ×2 (08:36→22:49)
[2018-06-08] MEDS: PANTOPRAZOLE 40 MG TABLET PO SCH (08:36)
[2018-06-08] MEDS: CALCIUM (CARBONATE)/VITAMIN D 600 MG-400 UNIT TABLET PO SCH ×2 (08:36→22:48)
[2018-06-08] MEDS ORDERED: LACTULOSE 320 GM/480 ML BOTTLE RECTAL SCH (09:00)
[2018-06-08] MEDS: RIFAXIMIN 550 MG TABLET PO SCH (22:49)
[2018-06-09] MEDS: SODIUM CHLORIDE 0.9% 1,000 ML IV SCH ×2 (00:30→10:03)
[2018-06-09 02:51] LABS: Basophils % 1.3 % (0.0-0.8); Eosinophils # 0.1 10*3/uL (0.0-0.87); Eosinophils % 2.1 % (0.00-10.9); Hematocrit 26.2 VOL% (35.7-47.0); Hemoglobin 8.2 GM/DL (12.0-16.0); Lymphocytes # 0.9 10*3/uL (1.4-4.0); Lymphocytes % 39.6 % (21.3-54.2); Mean Corpuscular HGB Conc 31.3 GM/DL (32-36); Mean Corpuscular Hemoglobin 38 PG (27-34); Mean Corpuscular Volume 120.7 FL (87-102); Monocytes # 0.2 10*3/uL (0.11-0.8); Monocytes % 8.9 % (1.7-12.7); Neutrophils # 1.1 10*3/uL (1.4-7.4); Neutrophils % 48.1 % (38.7-73.9); Red Blood Count 2.17 MC/CUMM (3.8-5.5); Red Cell Distribution Width 15.9 % (9.3-17.3); White Blood Count 2.4 T/CUMM (4-12)
[2018-06-09 02:53] LABS: Platelet Count 40 T/CUMM (130-400)
[2018-06-09] MEDS: LACTULOSE 20 GM/30 ML UDCUP PO SCH ×7 (03:16→23:42)
[2018-06-09 06:05] LABS: Anisocytosis 2+; Macrocytosis 2+; Microcytosis Slight; Platelet Estimate Decreased
[2018-06-09] MEDS: PANTOPRAZOLE 40 MG TABLET PO SCH (08:54)
[2018-06-09] MEDS: CALCIUM (CARBONATE)/VITAMIN D 600 MG-400 UNIT TABLET PO SCH ×2 (08:54→20:24)
[2018-06-09] MEDS: MAGNESIUM CHLORIDE 64 MG TABLET PO SCH ×2 (08:54→20:24)
[2018-06-09] MEDS: INSULIN REGULAR 100 UNIT/ML SUBCUT SCH ×4 (08:55→20:20)
[2018-06-09] MEDS: RIFAXIMIN 550 MG TABLET PO SCH ×2 (09:01→20:24)
[2018-06-09] MEDS ORDERED: SODIUM CHLORIDE 0.9% 1,000 ML IV PRN (15:07)
[2018-06-10 05:15] LABS: Basophils % 0.7 % (0.0-0.8); Eosinophils # 0.1 10*3/uL (0.0-0.87); Eosinophils % 2.8 % (0.00-10.9); Hematocrit 24.9 VOL% (35.7-47.0); Lymphocytes % 35.4 % (21.3-54.2); Mean Corpuscular HGB Conc 32.1 GM/DL (32-36); Mean Corpuscular Hemoglobin 37 PG (27-34); Mean Corpuscular Volume 115.8 FL (87-102); Mean Platelet Volume 11.4 FL (9.6-12.0); Monocytes # 0.3 10*3/uL (0.11-0.8); Neutrophils # 1.5 10*3/uL (1.4-7.4); Neutrophils % 52.1 % (38.7-73.9); Red Blood Count 2.15 MC/CUMM (3.8-5.5); Red Cell Distribution Width 15.4 % (9.3-17.3); White Blood Count 2.9 T/CUMM (4-12)
[2018-06-10 05:20] LABS: Platelet Count 42 T/CUMM (130-400)
[2018-06-10 05:22] LABS: INR 1.2; PT Patient Result 12.7 SECS
[2018-06-10 05:27] LABS: Bilirubin,Total 1.9 MG/DL (0.2-1.0); Calcium 8.2 MG/DL (8.5-10.1); Osmolality,Calculated 282.3 MOS/KG (273-304); Potassium 3.4 MMOL/L (3.5-5.1); Total Protein 4.6 G/DL (6.4-8.3)
[2018-06-10] MEDS: LACTULOSE 20 GM/30 ML UDCUP PO SCH ×4 (05:58→23:27)
[2018-06-10 06:34] LABS: Platelet Estimate Decreased; Polychromasia Few
[2018-06-10] MEDS ORDERED: POTASSIUM CHLORIDE 20 MEQ/15 ML UDCUP PO PRN (06:51)
[2018-06-10] MEDS ORDERED: FUROSEMIDE 20 MG/2 ML VIAL IV SCH (09:00)
[2018-06-10] MEDS: PANTOPRAZOLE 40 MG TABLET PO SCH (09:33)
[2018-06-10] MEDS: INSULIN REGULAR 100 UNIT/ML SUBCUT SCH ×4 (09:33→20:11)
[2018-06-10] MEDS: FUROSEMIDE 20 MG TABLET PO SCH (09:34)
[2018-06-10] MEDS: CALCIUM (CARBONATE)/VITAMIN D 600 MG-400 UNIT TABLET PO SCH ×2 (09:34→20:10)
[2018-06-10] MEDS: MAGNESIUM CHLORIDE 64 MG TABLET PO SCH ×2 (09:34→20:10)
[2018-06-10] MEDS: RIFAXIMIN 550 MG TABLET PO SCH ×2 (09:34→20:10)
[2018-06-11 05:39] LABS: Calcium 8.1 MG/DL (8.5-10.1); Osmolality,Calculated 288.1 MOS/KG (273-304); Potassium 3.7 MMOL/L (3.5-5.1)
[2018-06-11] MEDS: INSULIN REGULAR 100 UNIT/ML SUBCUT SCH ×4 (08:20→20:45)
[2018-06-11] MEDS: CALCIUM (CARBONATE)/VITAMIN D 600 MG-400 UNIT TABLET PO SCH ×2 (08:21→20:44)
[2018-06-11] MEDS: LACTULOSE 20 GM/30 ML UDCUP PO SCH ×5 (08:21→20:44)
[2018-06-11] MEDS: RIFAXIMIN 550 MG TABLET PO SCH ×2 (08:22→20:44)
[2018-06-11] MEDS: FUROSEMIDE 20 MG TABLET PO SCH (08:22)
[2018-06-11] MEDS: PANTOPRAZOLE 40 MG TABLET PO SCH (08:22)
[2018-06-11] MEDS: MAGNESIUM CHLORIDE 64 MG TABLET PO SCH ×2 (08:22→20:44)
[2018-06-12] MEDS: LACTULOSE 20 GM/30 ML UDCUP PO SCH ×5 (01:11→20:48)
[2018-06-12 05:18] LABS: Basophils % 1.3 % (0.0-0.8); Eosinophils # 0.2 10*3/uL (0.0-0.87); Eosinophils % 6.1 % (0.00-10.9); Hematocrit 25.2 VOL% (35.7-47.0); Hemoglobin 8.2 GM/DL (12.0-16.0); Immature Granulocytes % 0.6 %; Immature Granulocytes Absolute 0.02 #; Lymphocytes % 31.8 % (21.3-54.2); Mean Corpuscular HGB Conc 32.5 GM/DL (32-36); Mean Corpuscular Hemoglobin 37 PG (27-34); Mean Corpuscular Volume 115.1 FL (87-102); Mean Platelet Volume 11.8 FL (9.6-12.0); Monocytes # 0.4 10*3/uL (0.11-0.8); Monocytes % 11.5 % (1.7-12.7); Neutrophils # 1.5 10*3/uL (1.4-7.4); Neutrophils % 48.7 % (38.7-73.9); Platelet Count 46 T/CUMM (130-400); Red Blood Count 2.19 MC/CUMM (3.8-5.5); Red Cell Distribution Width 15.3 % (9.3-17.3); White Blood Count 3.1 T/CUMM (4-12)
[2018-06-12 05:51] LABS: Hypochromasia 1+; Ovalocytes 1+; Platelet Estimate Decreased; Tear Drop Cells Few
[2018-06-12] MEDS: INSULIN REGULAR 100 UNIT/ML SUBCUT SCH ×4 (08:47→20:50)
[2018-06-12] MEDS: PANTOPRAZOLE 40 MG TABLET PO SCH (08:48)
[2018-06-12] MEDS: FUROSEMIDE 20 MG TABLET PO SCH (08:48)
[2018-06-12] MEDS: CALCIUM (CARBONATE)/VITAMIN D 600 MG-400 UNIT TABLET PO SCH ×2 (08:48→20:47)
[2018-06-12] MEDS: RIFAXIMIN 550 MG TABLET PO SCH ×2 (08:48→20:47)
[2018-06-12] MEDS: MAGNESIUM CHLORIDE 64 MG TABLET PO SCH ×2 (08:48→20:47)
[2018-06-12] MEDS ORDERED: ERGOCALCIFEROL 50,000 UNIT CAPSULE PO SCH (09:00)
[2018-06-13] MEDS: LACTULOSE 20 GM/30 ML UDCUP PO SCH ×2 (01:22→08:13)
[2018-06-13] MEDS: INSULIN REGULAR 100 UNIT/ML SUBCUT SCH ×2 (08:12→12:05)
[2018-06-13] MEDS: CALCIUM (CARBONATE)/VITAMIN D 600 MG-400 UNIT TABLET PO SCH (08:13)
[2018-06-13] MEDS: MAGNESIUM CHLORIDE 64 MG TABLET PO SCH (08:14)
[2018-06-13] MEDS: FUROSEMIDE 20 MG TABLET PO SCH (08:14)
[2018-06-13] MEDS: PANTOPRAZOLE 40 MG TABLET PO SCH (08:14)
[2018-06-13] MEDS: RIFAXIMIN 550 MG TABLET PO SCH (08:14)
[2018-06-13 12:32] VITALS: BP 116/54
== END 2018-06-13 13:17 | disposition home health service (06) | DRG 442 ==
LOC: N.EDINP 20:27 → N.ED 20:27 → SUATTDRO 06-08 01:18 → N.5E 06-08 01:52
PROVIDERS: ADMIT Internal Medicine; ATTEND Internal Medicine Geriatric Medicine

== ENCOUNTER 2020-01-31 10:14 | Observation (INO) ==
[2020-01-31 11:03] LABS: Eosinophils # 0.2 10*3/uL (0.0-0.87); Eosinophils % 4.4 % (0.00-10.9); Hematocrit 27.1 VOL% (35.7-47.0); Hemoglobin 8.8 GM/DL (12.0-16.0); Immature Granulocytes Absolute 0.04 #; Lymphocytes # 0.9 10*3/uL (1.4-4.0); Lymphocytes % 21.8 % (21.3-54.2); Mean Corpuscular HGB Conc 32.5 GM/DL (32-36); Mean Corpuscular Volume 110.6 FL (87-102); Mean Platelet Volume 12.7 FL (9.6-12.0); Monocytes % 8.2 % (1.7-12.7); NRBC # 0.02 10*3/uL; Neutrophils % 63.6 % (38.7-73.9); Red Blood Count 2.45 MC/CUMM (3.8-5.5); Red Cell Distribution Width 18.7 % (9.3-17.3); White Blood Count 3.9 T/CUMM (4-12)
[2020-01-31 11:04] LABS: Platelet Count 51 T/CUMM (130-400)
[2020-01-31 11:26] LABS: Albumin 2.3 G/DL (3.4-5.0); Bilirubin,Total 3.5 MG/DL (0.2-1.0); Osmolality,Calculated 292.3 MOS/KG (273-304); Total Protein 5.1 G/DL (6.4-8.3)
[2020-01-31 11:43] LABS: Bilirubin,Urine Negative (Negative); Blood, Urine Moderate mg/dL (Negative); Glucose,Urine (UA) 50 mg/dL (Negative); Ketones,Urine Negative (Negative); Mucus,Urine Many /LPF (Occasional); Nitrite,Urine Negative (Negative); Protein,Urine 100 MG/DL; RBC,Urine 16 /HPF (0-4); Squamous Epithelial Cell,Urine Occasional /HPF (0-10); Urine Appearance CLEAR (Clear); Urine Color Amber (Yellow); Urine Specific Gravity 1.023 (1.001-1.035); WBC,Urine 2 /HPF (0-6)
[2020-01-31] MEDS ORDERED: DEXTROSE 50% 25 GM/50 ML VIAL IV PRN (12:21)
[2020-01-31] MEDS ORDERED: GLUCAGON 1 MG VIAL IM PRN (12:21)
[2020-01-31] MEDS ORDERED: cefTRIAXone 2,000 MG in SODIUM CHLORIDE 0.9% 100 ML IV STA (12:27)
[2020-01-31] MEDS ORDERED: SODIUM CHLORIDE 0.9% 1,000 ML IV STA (12:28)
[2020-01-31] MEDS: cefTRIAXone 1,000 MG in SYRINGE 1 EACH IV SCH (12:50)
[2020-01-31] MEDS ORDERED: DEXAMETHASONE 4 MG/1 ML VIAL IV STA (12:56)
[2020-01-31] MEDS ORDERED: ALBUTEROL/IPRATROPIUM 3 ML NEB RESP TX STA (12:56)
[2020-01-31] MEDS ORDERED: ACETAMINOPHEN 325 MG TABLET PO PRN (13:51)
[2020-01-31] MEDS ORDERED: ZALEPLON 5 MG CAPSULE PO PRN (13:51)
[2020-01-31] MEDS ORDERED: ONDANSETRON 4 MG/2 ML VIAL IV PRN (13:51)
[2020-01-31] MEDS ORDERED: MORPHINE 4 MG/1 ML VIAL IV PRN (13:51)
[2020-01-31] MEDS ORDERED: AZITHROMYCIN 250 MG TABLET PO ONE (13:53)
[2020-01-31] MEDS ORDERED: PANTOPRAZOLE 40 MG TABLET PO PRN (13:55)
[2020-01-31] MEDS: KETOROLAC 30 MG/1 ML VIAL IV SCH ×2 (14:29→22:36)
[2020-01-31] MEDS: methylPREDNISolone SOD SUC 40 MG/1 ML VIAL IV SCH ×2 (14:29→22:37)
[2020-01-31] MEDS: LACTULOSE 20 GM/30 ML UDCUP PO SCH ×2 (18:34→22:32)
[2020-01-31] MEDS: INSULIN REGULAR 100 UNIT/ML SUBCUT SCH ×2 (18:34→22:39)
[2020-01-31] MEDS: ALBUTEROL 2.5 MG/3 ML NEB RESP TX SCH (19:51)
[2020-01-31] MEDS ORDERED: INSULIN GLARGINE 100 UNIT/ML SUBCUT SCH (21:00)
[2020-02-01] MEDS: ALBUTEROL 2.5 MG/3 ML NEB RESP TX SCH ×3 (00:27→13:08)
[2020-02-01] MEDS: INSULIN REGULAR 100 UNIT/ML SUBCUT SCH ×2 (00:33→07:27)
[2020-02-01] MEDS: KETOROLAC 30 MG/1 ML VIAL IV SCH ×2 (03:39→12:01)
[2020-02-01 06:03] LABS: Basophils % 0.3 % (0.0-0.8); Hematocrit 24.8 VOL% (35.7-47.0); Hemoglobin 8.2 GM/DL (12.0-16.0); Immature Granulocytes % 1.4 %; Immature Granulocytes Absolute 0.05 #; Lymphocytes # 0.5 10*3/uL (1.4-4.0); Mean Corpuscular HGB Conc 33.1 GM/DL (32-36); Mean Corpuscular Volume 109.7 FL (87-102); Monocytes % 4.8 % (1.7-12.7); Neutrophils % 78.5 % (38.7-73.9); Red Blood Count 2.26 MC/CUMM (3.8-5.5); Red Cell Distribution Width 18.4 % (9.3-17.3); White Blood Count 3.5 T/CUMM (4-12)
[2020-02-01 06:19] LABS: Platelet Count 39 T/CUMM (130-400)
[2020-02-01 06:25] LABS: Albumin 2.1 G/DL (3.4-5.0); Bilirubin,Total 2.3 MG/DL (0.2-1.0); Osmolality,Calculated 302.1 MOS/KG (273-304); Risk Ratio 1.82; Thyroid Stimulating Hormone 0.453 uIU/ml (0.358-3.74); VLDL CHOLESTEROL 11.2 MG/DL
[2020-02-01 06:36] LABS: Hypochromasia 1+
[2020-02-01 06:37] LABS: Anisocytosis 1+; Ovalocytes Few; Platelet Estimate Decreased; Polychromasia Slight
[2020-02-01] MEDS: methylPREDNISolone SOD SUC 40 MG/1 ML VIAL IV SCH ×2 (07:27→15:41)
[2020-02-01] MEDS ORDERED: CALCIUM (CARBONATE)/VITAMIN D 500 MG-200 UNIT TABLET PO SCH (09:00)
[2020-02-01] MEDS ORDERED: AZITHROMYCIN 250 MG TABLET PO SCH (09:00)
[2020-02-01] MEDS ORDERED: NON-FORMULARY MEDICATION (Elderberry Fruit And Flower 460-115 mg Capsule) PO SCH (09:00)
[2020-02-01] MEDS ORDERED: FUROSEMIDE 40 MG TABLET PO SCH (09:00)
[2020-02-01] MEDS ORDERED: INSULIN GLARGINE 100 UNIT/ML SUBCUT SCH (09:00)
[2020-02-01 11:41] VITALS: BP 156/55
[2020-02-01] MEDS: LACTULOSE 20 GM/30 ML UDCUP PO SCH ×2 (11:58→15:40)
[2020-02-01] MEDS: cefTRIAXone 1,000 MG in SYRINGE 1 EACH IV SCH (15:40)
== END 2020-02-01 16:25 | disposition home or self-care (01) ==
LOC: EDUNIT# → EDBD → N.ED 10:14 → N.EDINP 10:14 → SUATTDRO 13:51 → N.EDINP 15:11 → N.3E 15:20
PROVIDERS: ADMIT Emergency Medicine; ATTEND Internal Medicine

== ENCOUNTER 2020-02-04 21:31 | Observation (INO) ==
[2020-02-04 23:01] LABS: Basophils % 0.9 % (0.0-0.8); Eosinophils # 0.2 10*3/uL (0.0-0.87); Eosinophils % 3.4 % (0.00-10.9); Hematocrit 29.3 VOL% (35.7-47.0); Hemoglobin 9.7 GM/DL (12.0-16.0); Immature Granulocytes % 0.9 %; Immature Granulocytes Absolute 0.04 #; Lymphocytes # 1.3 10*3/uL (1.4-4.0); Lymphocytes % 30.5 % (21.3-54.2); Mean Corpuscular HGB Conc 33.1 GM/DL (32-36); Mean Corpuscular Volume 107.3 FL (87-102); Mean Platelet Volume 13.2 FL (9.6-12.0); Monocytes % 8.5 % (1.7-12.7); Neutrophils % 55.8 % (38.7-73.9); Platelet Count 62 T/CUMM (130-400); Red Blood Count 2.73 MC/CUMM (3.8-5.5); Red Cell Distribution Width 17.9 % (9.3-17.3); White Blood Count 4.4 T/CUMM (4-12)
[2020-02-04 23:11] LABS: INR 1.1; PT Patient Result 11.9 SECS (9.8-11.9)
[2020-02-04] MEDS ORDERED: methylPREDNISolone SOD SUC 125 MG/2 ML VIAL IV STA (23:11)
[2020-02-04] MEDS ORDERED: ALBUTEROL/IPRATROPIUM 3 ML NEB RESP TX STA (23:12)
[2020-02-04 23:34] LABS: Albumin 2.4 G/DL (3.4-5.0); Bilirubin,Total 2.9 MG/DL (0.2-1.0); Calcium 8.2 MG/DL (8.5-10.1); Osmolality,Calculated 296.7 MOS/KG (273-304); Total Protein 5.2 G/DL (6.4-8.3)
[2020-02-04 23:54] LABS: Ferritin 61.2 ng/ml (8-252)
[2020-02-05] MEDS ORDERED: INSULIN REGULAR 100 UNIT/ML SUBCUT STA (00:24)
[2020-02-05] MEDS ORDERED: INSULIN REGULAR 100 UNIT/ML ONE (00:26)
[2020-02-05] MEDS ORDERED: GLUCAGON 1 MG VIAL IM PRN (03:20)
[2020-02-05] MEDS ORDERED: DEXTROSE 50% 25 GM/50 ML VIAL IV PRN (03:20)
[2020-02-05] MEDS ORDERED: ALBUTEROL/IPRATROPIUM 3 ML NEB RESP TX PRN (03:26)
[2020-02-05] MEDS ORDERED: DOCUSATE SODIUM 100 MG CAPSULE PO PRN (03:26)
[2020-02-05] MEDS ORDERED: MORPHINE 4 MG/1 ML VIAL IV PRN (03:26)
[2020-02-05] MEDS ORDERED: KETOROLAC 15 MG/1 ML VIAL IV PRN (04:07)
[2020-02-05] MEDS: AMOXICILLIN/CLAV 875 MG TABLET PO SCH ×2 (04:22→20:33)
[2020-02-05 06:12] LABS: Basophils % 0.4 % (0.0-0.8); Hematocrit 27.6 VOL% (35.7-47.0); Hemoglobin 9.2 GM/DL (12.0-16.0); Immature Granulocytes % 0.8 %; Immature Granulocytes Absolute 0.02 #; Lymphocytes # 0.5 10*3/uL (1.4-4.0); Lymphocytes % 19.6 % (21.3-54.2); Mean Corpuscular HGB Conc 33.3 GM/DL (32-36); Mean Corpuscular Volume 106.2 FL (87-102); Mean Platelet Volume 11.8 FL (9.6-12.0); Monocytes % 1.9 % (1.7-12.7); Neutrophils % 77.3 % (38.7-73.9); Platelet Count 45 T/CUMM (130-400); Red Cell Distribution Width 17.6 % (9.3-17.3); White Blood Count 2.6 T/CUMM (4-12)
[2020-02-05 06:33] LABS: Albumin 2.3 G/DL (3.4-5.0); Bilirubin,Total 3.9 MG/DL (0.2-1.0); Osmolality,Calculated 292.8 MOS/KG (273-304); Total Protein 5.3 G/DL (6.4-8.3)
[2020-02-05 06:40] LABS: Band Neutrophils 2 % (0-10); Hypochromasia 1+; Lymphocytes 12 % (20-55); Segmented Neutrophils 84 % (50-85); Total Cells Counted 100
[2020-02-05 06:41] LABS: Anisocytosis 1+; Ovalocytes Slight; Polychromasia Slight
[2020-02-05 06:42] LABS: Platelet Estimate Decreased
[2020-02-05] MEDS: INSULIN REGULAR 100 UNIT/ML SUBCUT SCH ×4 (08:54→20:32)
[2020-02-05] MEDS: INSULIN GLARGINE 100 UNIT/ML SUBCUT SCH (12:07)
[2020-02-05] MEDS: LACTULOSE 20 GM/30 ML UDCUP PO SCH ×3 (13:21→20:32)
[2020-02-05] MEDS: ONDANSETRON 4 MG/2 ML VIAL IV PRN (23:08)
[2020-02-06] MEDS: ONDANSETRON 4 MG/2 ML VIAL IV PRN ×3 (03:04→11:56)
[2020-02-06 06:28] LABS: Albumin 2.2 G/DL (3.4-5.0); Bilirubin,Total 2.9 MG/DL (0.2-1.0); Calcium 8.2 MG/DL (8.5-10.1); Osmolality,Calculated 294.1 MOS/KG (273-304)
[2020-02-06 06:30] LABS: Basophils % 0.3 % (0.0-0.8); Eosinophils # 0.1 10*3/uL (0.0-0.87); Eosinophils % 1.2 % (0.00-10.9); Hematocrit 30.4 VOL% (35.7-47.0); Hemoglobin 9.9 GM/DL (12.0-16.0); Immature Granulocytes % 0.6 %; Immature Granulocytes Absolute 0.06 #; Lymphocytes % 19.2 % (21.3-54.2); Mean Corpuscular HGB Conc 32.6 GM/DL (32-36); Mean Corpuscular Volume 110.1 FL (87-102); Mean Platelet Volume 12.3 FL (9.6-12.0); Monocytes % 7.1 % (1.7-12.7); Neutrophils % 71.6 % (38.7-73.9); Platelet Count 75 T/CUMM (130-400); Red Blood Count 2.76 MC/CUMM (3.8-5.5); Red Cell Distribution Width 18.6 % (9.3-17.3); White Blood Count 10.6 T/CUMM (4-12)
[2020-02-06 09:42] LABS: Ovalocytes Few; Platelet Estimate Decreased
[2020-02-06] MEDS: INSULIN REGULAR 100 UNIT/ML SUBCUT SCH ×4 (10:12→20:25)
[2020-02-06] MEDS: CALCIUM (CARBONATE)/VITAMIN D 500 MG-200 UNIT TABLET PO SCH (10:12)
[2020-02-06] MEDS: AMOXICILLIN/CLAV 875 MG TABLET PO SCH ×2 (10:12→20:24)
[2020-02-06] MEDS: FUROSEMIDE 40 MG TABLET PO SCH (10:12)
[2020-02-06] MEDS: LACTULOSE 20 GM/30 ML UDCUP PO SCH ×4 (10:12→20:25)
[2020-02-06] MEDS: INSULIN GLARGINE 100 UNIT/ML SUBCUT SCH (10:13)
[2020-02-06] MEDS ORDERED: PROMETHAZINE 25 MG TABLET PO PRN (13:32)
[2020-02-06] MEDS ORDERED: PROMETHAZINE INJ 12.5 MG in SODIUM CHLORIDE 0.9% 50 ML IV ONE (14:00)
[2020-02-07 05:56] LABS: Basophils # 0.1 10*3/uL (0.0-0.2); Basophils % 0.7 % (0.0-0.8); Eosinophils # 0.5 10*3/uL (0.0-0.87); Eosinophils % 6.7 % (0.00-10.9); Hematocrit 28.1 VOL% (35.7-47.0); Hemoglobin 8.9 GM/DL (12.0-16.0); Immature Granulocytes % 0.6 %; Immature Granulocytes Absolute 0.04 #; Lymphocytes # 1.8 10*3/uL (1.4-4.0); Lymphocytes % 25.7 % (21.3-54.2); Mean Corpuscular HGB Conc 31.7 GM/DL (32-36); Mean Corpuscular Volume 112.4 FL (87-102); Monocytes % 8.1 % (1.7-12.7); Neutrophils % 58.2 % (38.7-73.9); Platelet Count 56 T/CUMM (130-400); Red Cell Distribution Width 18.4 % (9.3-17.3); White Blood Count 6.8 T/CUMM (4-12)
[2020-02-07 06:16] LABS: Albumin 1.9 G/DL (3.4-5.0); Bilirubin,Direct 0.62 MG/DL (0.0-0.20); Bilirubin,Indirect 1.2 MG/DL (0.0-1.0); Bilirubin,Total 1.8 MG/DL (0.2-1.0); Calcium 7.9 MG/DL (8.5-10.1); Osmolality,Calculated 287.3 MOS/KG (273-304); Total Protein 4.3 G/DL (6.4-8.3)
[2020-02-07 06:28] LABS: Folate 12.3 NG/ML (5.4-24.0)
[2020-02-07 07:32] LABS: Macrocytosis 2+; Platelet Estimate Decreased; Polychromasia Slight
[2020-02-07] MEDS: LACTULOSE 20 GM/30 ML UDCUP PO SCH ×2 (08:35→13:17)
[2020-02-07] MEDS: FUROSEMIDE 40 MG TABLET PO SCH (08:35)
[2020-02-07] MEDS: CALCIUM (CARBONATE)/VITAMIN D 500 MG-200 UNIT TABLET PO SCH (08:35)
[2020-02-07] MEDS: AMOXICILLIN/CLAV 875 MG TABLET PO SCH (08:35)
[2020-02-07] MEDS: INSULIN REGULAR 100 UNIT/ML SUBCUT SCH ×2 (08:45→13:16)
[2020-02-07] MEDS: INSULIN GLARGINE 100 UNIT/ML SUBCUT SCH (09:20)
[2020-02-07 12:13] VITALS: BP 119/55
== END 2020-02-07 15:20 | disposition home or self-care (01) ==
LOC: N.EDINP 21:31 → N.ED 21:31 → N.EDINP 02-05 03:10 → N.3E 02-05 03:18
PROVIDERS: ADMIT Internal Medicine; ATTEND Internal Medicine

== ENCOUNTER 2020-02-20 21:58 | Observation (INO) ==
[2020-02-20] MEDS ORDERED: SODIUM CHLORIDE 0.9% 1,000 ML IV STA (23:24)
[2020-02-21 00:03] LABS: Bacteria,Urine Occasional /HPF (Few); Bilirubin,Urine Negative (Negative); Blood, Urine Moderate mg/dL (Negative); Glucose,Urine (UA) Negative (Negative); Ketones,Urine Negative (Negative); Mucus,Urine Occasional /LPF (Occasional); Nitrite,Urine Negative (Negative); Protein,Urine 100 MG/DL; RBC,Urine 28 /HPF (0-4); Squamous Epithelial Cell,Urine Occasional /HPF (0-10); Urine Appearance CLEAR (Clear); Urine Specific Gravity 1.019 (1.001-1.035); WBC,Urine 2 /HPF (0-6)
[2020-02-21 00:03] LABS: Basophils % 0.8 % (0.0-0.8); Eosinophils # 0.2 10*3/uL (0.0-0.87); Eosinophils % 4.1 % (0.00-10.9); Hematocrit 31.5 VOL% (35.7-47.0); Hemoglobin 10.4 GM/DL (12.0-16.0); Immature Granulocytes % 0.3 %; Immature Granulocytes Absolute 0.01 #; Lymphocytes # 1.1 10*3/uL (1.4-4.0); Mean Corpuscular Volume 109.8 FL (87-102); Mean Platelet Volume 12.2 FL (9.6-12.0); Monocytes % 7.4 % (1.7-12.7); Neutrophils % 58.4 % (38.7-73.9); Platelet Count 70 T/CUMM (130-400); Red Blood Count 2.87 MC/CUMM (3.8-5.5); Red Cell Distribution Width 18.3 % (9.3-17.3); White Blood Count 3.9 T/CUMM (4-12)
[2020-02-21 00:04] LABS: Urine Color Yellow (Yellow)
[2020-02-21 00:12] LABS: INR 1.2; PT Patient Result 12.6 SECS (9.8-11.9); Partial Thromboplastin Time 28.6 SECS (23.9-33.8)
[2020-02-21 00:38] LABS: Albumin 2.6 G/DL (3.4-5.0); Bilirubin,Total 4.1 MG/DL (0.2-1.0); Calcium 8.2 MG/DL (8.5-10.1); Osmolality,Calculated 293.4 MOS/KG (273-304); Total Protein 5.3 G/DL (6.4-8.3)
[2020-02-21 01:36] LABS: Hypochromasia Slight; Platelet Estimate Decreased
[2020-02-21] MEDS ORDERED: DEXTROSE 50% 25 GM/50 ML VIAL IV PRN (03:02)
[2020-02-21] MEDS ORDERED: GLUCAGON 1 MG VIAL IM PRN (03:02)
[2020-02-21] MEDS ORDERED: ALBUTEROL/IPRATROPIUM 3 ML NEB RESP TX PRN (05:46)
[2020-02-21] MEDS ORDERED: LACTULOSE 320 GM/480 ML BOTTLE RECTAL SCH (06:00)
[2020-02-21 06:57] LABS: Basophils % 0.8 % (0.0-0.8); Eosinophils # 0.2 10*3/uL (0.0-0.87); Hematocrit 25.3 VOL% (35.7-47.0); Immature Granulocytes % 0.8 %; Immature Granulocytes Absolute 0.02 #; Lymphocytes # 0.9 10*3/uL (1.4-4.0); Lymphocytes % 37.3 % (21.3-54.2); Mean Corpuscular Volume 111.9 FL (87-102); Mean Platelet Volume 11.8 FL (9.6-12.0); Monocytes % 6.8 % (1.7-12.7); Neutrophils % 46.3 % (38.7-73.9); Red Blood Count 2.26 MC/CUMM (3.8-5.5); Red Cell Distribution Width 18.1 % (9.3-17.3)
[2020-02-21 07:01] LABS: Hemoglobin 8.1 GM/DL (12.0-16.0); Platelet Count 49 T/CUMM (130-400); White Blood Count 2.5 T/CUMM (4-12)
[2020-02-21 07:19] LABS: Band Neutrophils 1 % (0-10); Eosinophils 6 % (0-10); Lymphocytes 31 % (20-55); Platelet Estimate Decreased; Segmented Neutrophils 58 % (50-85); Total Cells Counted 100
[2020-02-21 07:20] LABS: Hypochromasia Slight; Macrocytosis Slight
[2020-02-21 07:31] LABS: Albumin 1.9 G/DL (3.4-5.0); Calcium 7.8 MG/DL (8.5-10.1); Total Protein 4.2 G/DL (6.4-8.3)
[2020-02-21] MEDS ORDERED: LACTULOSE 20 GM/30 ML UDCUP ONE (08:18)
[2020-02-21] MEDS: LACTULOSE 20 GM/30 ML UDCUP PO SCH ×3 (08:34→20:38)
[2020-02-21] MEDS ORDERED: PANTOPRAZOLE 40 MG TABLET PO PRN (09:08)
[2020-02-21] MEDS ORDERED: ALBUTEROL 2.5 MG/3 ML NEB RESP TX PRN (09:08)
[2020-02-21] MEDS: SODIUM CHLORIDE 0.45% 1,000 ML IV SCH ×2 (10:05→23:21)
[2020-02-21] MEDS ORDERED: ACETAMINOPHEN 325 MG TABLET PO ONE (22:10)
[2020-02-22] MEDS: LACTULOSE 20 GM/30 ML UDCUP PO SCH ×3 (03:21→15:41)
[2020-02-22 06:01] LABS: Basophils % 0.9 % (0.0-0.8); Eosinophils # 0.1 10*3/uL (0.0-0.87); Eosinophils % 4.3 % (0.00-10.9); Hematocrit 23.5 VOL% (35.7-47.0); Hemoglobin 7.8 GM/DL (12.0-16.0); Immature Granulocytes % 0.3 %; Immature Granulocytes Absolute 0.01 #; Lymphocytes % 32.2 % (21.3-54.2); Mean Corpuscular HGB Conc 33.2 GM/DL (32-36); Mean Corpuscular Volume 109.3 FL (87-102); Mean Platelet Volume 12.2 FL (9.6-12.0); Monocytes % 6.5 % (1.7-12.7); Neutrophils % 55.8 % (38.7-73.9); Platelet Count 45 T/CUMM (130-400); Red Blood Count 2.15 MC/CUMM (3.8-5.5); Red Cell Distribution Width 17.6 % (9.3-17.3); White Blood Count 3.2 T/CUMM (4-12)
[2020-02-22 06:12] LABS: Calcium 7.5 MG/DL (8.5-10.1)
[2020-02-22] MEDS ORDERED: SODIUM CHLORIDE 0.9% 1,000 ML IV PRN (07:01)
[2020-02-22 07:16] LABS: Platelet Estimate Decreased
[2020-02-22 07:17] LABS: Anisocytosis 2+; Tear Drop Cells Few
[2020-02-22 07:18] LABS: Macrocytosis 1+; Poikilocytosis Slight
[2020-02-22 07:33] LABS: % Iron Saturation 50.7 % (18-50); Ferritin 82.2 ng/ml (8-252)
[2020-02-22] MEDS ORDERED: ONDANSETRON 4 MG/2 ML VIAL IV PRN (08:33)
[2020-02-22 08:51] LABS: Folate 8.3 NG/ML (5.4-24.0)
[2020-02-22] MEDS ORDERED: FUROSEMIDE 40 MG TABLET PO SCH (09:00)
[2020-02-22] MEDS ORDERED: POTASSIUM CHLORIDE 20 MEQ TABLET PO ONE (09:00)
[2020-02-22] MEDS: FUROSEMIDE 20 MG/2 ML VIAL IV SCH ×2 (09:44→15:41)
[2020-02-22] MEDS: POTASSIUM CHLORIDE RIDER 10 MEQ in PREMIX 1 EACH IV SCH ×3 (09:45→15:00)
[2020-02-22] MEDS ORDERED: AZITHROMYCIN INJ 500 MG in SODIUM CHLORIDE 0.9% 250 ML IV ONE (10:02)
[2020-02-22] MEDS ORDERED: RIFAXIMIN 550 MG TABLET PO SCH (11:00)
[2020-02-22] MEDS ORDERED: AZITHROMYCIN 250 MG TABLET PO ONE (11:00)
[2020-02-22 16:08] VITALS: BP 157/47
== END 2020-02-22 16:54 | disposition home or self-care (01) ==
LOC: N.EDINP 21:58 → N.ED 21:58 → SUATTDRO 02-21 03:02 → N.EDINP 02-21 05:03 → N.5E 02-21 05:33
PROVIDERS: ADMIT Emergency Medicine; ATTEND Internal Medicine Geriatric Medicine

== ENCOUNTER 2020-05-20 08:28 | Inpatient (IN) ==
[2020-05-20] MEDS ORDERED: SODIUM CHLORIDE 0.9% 1,000 ML IV STA (08:52)
[2020-05-20 09:16] LABS: Basophils # 0.1 10*3/uL (0.0-0.2); Basophils % 0.9 % (0.0-0.8); Eosinophils # 0.1 10*3/uL (0.0-0.87); Eosinophils % 1.1 % (0.00-10.9); Hematocrit 31.9 VOL% (35.7-47.0); Hemoglobin 10.7 GM/DL (12.0-16.0); Immature Granulocytes % 0.6 %; Immature Granulocytes Absolute 0.04 #; Lymphocytes # 1.2 10*3/uL (1.4-4.0); Lymphocytes % 18.3 % (21.3-54.2); Mean Corpuscular HGB Conc 33.5 GM/DL (32-36); Mean Corpuscular Volume 110.4 FL (87-102); Monocytes % 7.5 % (1.7-12.7); Neutrophils % 71.6 % (38.7-73.9); Red Blood Count 2.89 MC/CUMM (3.8-5.5); Red Cell Distribution Width 18.2 % (9.3-17.3); White Blood Count 6.4 T/CUMM (4-12)
[2020-05-20 09:19] LABS: Platelet Count 76 T/CUMM (130-400)
[2020-05-20 09:32] LABS: INR 1.1; PT Patient Result 12.1 SECS (9.8-11.9); Partial Thromboplastin Time 28.2 SECS (23.9-33.8)
[2020-05-20 09:33] LABS: Anisocytosis 1+; Ovalocytes Slight; Platelet Estimate Decreased; Polychromasia Slight
[2020-05-20 09:36] LABS: Bacteria,Urine Occasional /HPF (Few); Bilirubin,Urine Negative (Negative); Blood, Urine Small mg/dL (Negative); Glucose,Urine (UA) >=500 mg/dL (Negative); Ketones,Urine 5 mg/dL (Negative); Mucus,Urine Occasional /LPF (Occasional); Nitrite,Urine Negative (Negative); Protein,Urine 100 MG/DL; RBC,Urine 5 /HPF (0-4); Squamous Epithelial Cell,Urine Occasional /HPF (0-10); Urine Appearance CLEAR (Clear); Urine Color Yellow (Yellow); Urine Specific Gravity 1.021 (1.001-1.035); WBC,Urine 1 /HPF (0-6)
[2020-05-20 09:45] LABS: Albumin 2.4 G/DL (3.4-5.0); Bilirubin,Total 2.8 MG/DL (0.2-1.0); Calcium 8.1 MG/DL (8.5-10.1); Osmolality,Calculated 305.4 MOS/KG (273-304); Total Protein 5.3 G/DL (5.0-7.5)
[2020-05-20] MEDS ORDERED: DEXTROSE 50% 25 GM/50 ML VIAL IV PRN (09:57)
[2020-05-20] MEDS ORDERED: GLUCAGON 1 MG VIAL IM PRN (09:57)
[2020-05-20] MEDS ORDERED: ONDANSETRON 4 MG/2 ML VIAL IV PRN (09:57)
[2020-05-20] MEDS: PANTOPRAZOLE 40 MG VIAL IV SCH (10:35)
[2020-05-20] MEDS ORDERED: LACTULOSE 20 GM/30 ML UDCUP NG SCH (13:00)
[2020-05-20] MEDS: INSULIN REGULAR 100 UNIT/ML SUBCUT SCH ×2 (13:04→18:32)
[2020-05-20] MEDS ORDERED: LACTULOSE 320 GM/480 ML BOTTLE RECTAL SCH ×2 (15:00→21:00)
[2020-05-20] MEDS: LACTATED RINGERS 1,000 ML IV SCH (15:10)
[2020-05-20] MEDS: metroNIDAZOLE INJ 250 MG in IV BAG 1 EACH IV SCH (18:26)
[2020-05-20] MEDS: RIFAXIMIN 550 MG TABLET PO SCH (20:21)
[2020-05-21] MEDS: INSULIN REGULAR 100 UNIT/ML SUBCUT SCH ×4 (00:13→18:24)
[2020-05-21] MEDS: metroNIDAZOLE INJ 250 MG in IV BAG 1 EACH IV SCH ×3 (00:18→18:26)
[2020-05-21 04:35] LABS: Basophils % 0.7 % (0.0-0.8); Eosinophils # 0.2 10*3/uL (0.0-0.87); Eosinophils % 6.9 % (0.00-10.9); Hematocrit 25.7 VOL% (35.7-47.0); Immature Granulocytes % 0.3 %; Immature Granulocytes Absolute 0.01 #; Lymphocytes # 0.8 10*3/uL (1.4-4.0); Lymphocytes % 28.8 % (21.3-54.2); Mean Corpuscular HGB Conc 33.5 GM/DL (32-36); Mean Corpuscular Volume 112.7 FL (87-102); Mean Platelet Volume 12.2 FL (9.6-12.0); Monocytes % 8.7 % (1.7-12.7); Neutrophils % 54.6 % (38.7-73.9); Red Blood Count 2.28 MC/CUMM (3.8-5.5); Red Cell Distribution Width 18.3 % (9.3-17.3); White Blood Count 2.9 T/CUMM (4-12)
[2020-05-21 04:36] LABS: Hemoglobin 8.6 GM/DL (12.0-16.0); Platelet Count 45 T/CUMM (130-400)
[2020-05-21 04:55] LABS: Hypochromasia 1+; Platelet Estimate Decreased
[2020-05-21 04:56] LABS: Macrocytosis Slight
[2020-05-21 05:34] LABS: Albumin 1.9 G/DL (3.4-5.0); Bilirubin,Total 3.7 MG/DL (0.2-1.0); Osmolality,Calculated 299.3 MOS/KG (273-304); Potassium 3.6 MMOL/L (3.5-5.1); Thyroid Stimulating Hormone 1.81 uIU/ml (0.358-3.74); Total Protein 4.3 G/DL (5.0-7.5)
[2020-05-21] MEDS: LACTATED RINGERS 1,000 ML IV SCH ×4 (06:08→21:57)
[2020-05-21] MEDS ORDERED: ACETAMINOPHEN 325 MG TABLET PO ONE (08:26)
[2020-05-21] MEDS: RIFAXIMIN 550 MG TABLET PO SCH ×2 (09:39→20:09)
[2020-05-21] MEDS: LACTULOSE 20 GM/30 ML UDCUP PO SCH ×3 (09:40→20:09)
[2020-05-21] MEDS: PANTOPRAZOLE 40 MG VIAL IV SCH (09:40)
[2020-05-22] MEDS: INSULIN REGULAR 100 UNIT/ML SUBCUT SCH ×4 (00:36→18:40)
[2020-05-22] MEDS: metroNIDAZOLE INJ 250 MG in IV BAG 1 EACH IV SCH ×3 (00:37→18:15)
[2020-05-22 03:45] LABS: Basophils % 1.1 % (0.0-0.8); Eosinophils # 0.2 10*3/uL (0.0-0.87); Eosinophils % 7.9 % (0.00-10.9); Hematocrit 24.9 VOL% (35.7-47.0); Hemoglobin 8.3 GM/DL (12.0-16.0); Immature Granulocytes % 0.4 %; Immature Granulocytes Absolute 0.01 #; Lymphocytes # 0.8 10*3/uL (1.4-4.0); Lymphocytes % 27.1 % (21.3-54.2); Mean Corpuscular HGB Conc 33.3 GM/DL (32-36); Mean Corpuscular Volume 112.2 FL (87-102); Mean Platelet Volume 12.1 FL (9.6-12.0); Monocytes % 8.6 % (1.7-12.7); Neutrophils % 54.9 % (38.7-73.9); Red Blood Count 2.22 MC/CUMM (3.8-5.5); Red Cell Distribution Width 17.8 % (9.3-17.3); White Blood Count 2.8 T/CUMM (4-12)
[2020-05-22 03:54] LABS: Platelet Count 47 T/CUMM (130-400)
[2020-05-22 04:07] LABS: Hypochromasia 1+; Ovalocytes Slight; Platelet Estimate Decreased
[2020-05-22 04:08] LABS: Macrocytosis Slight
[2020-05-22 04:11] LABS: Albumin 1.9 G/DL (3.4-5.0); Bilirubin,Total 2.6 MG/DL (0.2-1.0); Calcium 7.6 MG/DL (8.5-10.1); Osmolality,Calculated 295.7 MOS/KG (273-304); Potassium 3.3 MMOL/L (3.5-5.1); Total Protein 4.4 G/DL (5.0-7.5)
[2020-05-22 04:13] LABS: % Iron Saturation 71.8 % (18-50); Ferritin 93.3 ng/ml (8-252)
[2020-05-22 04:15] LABS: Folate 13.9 NG/ML (5.38-24.0); Vitamin B12 1218 PG/ML (211-911)
[2020-05-22 05:13] LABS: Sedimentation Rate-Westergren 27 MM/HR (0-30)
[2020-05-22] MEDS ORDERED: POTASSIUM CHLORIDE RIDER 10 MEQ in PREMIX 1 EACH IV PRN (07:31)
[2020-05-22] MEDS: LACTULOSE 20 GM/30 ML UDCUP PO SCH ×3 (09:02→20:01)
[2020-05-22] MEDS: RIFAXIMIN 550 MG TABLET PO SCH ×2 (09:02→20:02)
[2020-05-22] MEDS: POTASSIUM CHLORIDE 20 MEQ TABLET PO PRN (09:02)
[2020-05-22] MEDS: PANTOPRAZOLE 40 MG VIAL IV SCH (09:02)
[2020-05-22] MEDS ORDERED: ACETAMINOPHEN 325 MG TABLET PO ONE (12:16)
[2020-05-22] MEDS: LACTATED RINGERS 1,000 ML IV SCH (12:40)
[2020-05-22] MEDS: POTASSIUM CHLORIDE 20 MEQ TABLET PO SCH ×2 (16:46→20:01)
[2020-05-22] MEDS: INSULIN GLARGINE 100 UNIT/ML SUBCUT SCH (21:24)
[2020-05-23] MEDS: INSULIN REGULAR 100 UNIT/ML SUBCUT SCH ×5 (00:43→23:36)
[2020-05-23] MEDS: metroNIDAZOLE INJ 250 MG in IV BAG 1 EACH IV SCH ×2 (01:10→09:17)
[2020-05-23 03:52] LABS: Basophils # 0.1 10*3/uL (0.0-0.2); Basophils % 1.2 % (0.0-0.8); Eosinophils # 0.3 10*3/uL (0.0-0.87); Eosinophils % 6.7 % (0.00-10.9); Hematocrit 27.9 VOL% (35.7-47.0); Hemoglobin 9.1 GM/DL (12.0-16.0); Immature Granulocytes % 0.5 %; Immature Granulocytes Absolute 0.02 #; Lymphocytes # 1.1 10*3/uL (1.4-4.0); Lymphocytes % 25.9 % (21.3-54.2); Mean Corpuscular HGB Conc 32.6 GM/DL (32-36); Mean Platelet Volume 10.9 FL (9.6-12.0); Monocytes % 9.2 % (1.7-12.7); Neutrophils % 56.5 % (38.7-73.9); Platelet Count 59 T/CUMM (130-400); Red Blood Count 2.49 MC/CUMM (3.8-5.5); White Blood Count 4.3 T/CUMM (4-12)
[2020-05-23 04:09] LABS: Bilirubin,Total 1.9 MG/DL (0.2-1.0); Calcium 8.1 MG/DL (8.5-10.1); Osmolality,Calculated 295.6 MOS/KG (273-304); Total Protein 4.7 G/DL (5.0-7.5)
[2020-05-23 04:18] LABS: Hypochromasia 1+; Microcytosis 1+; Ovalocytes Slight; Platelet Estimate Decreased
[2020-05-23 04:35] LABS: Calcium 8.2 MG/DL (8.5-10.1); Osmolality,Calculated 295.6 MOS/KG (273-304)
[2020-05-23] MEDS: LACTATED RINGERS 1,000 ML IV SCH (07:05)
[2020-05-23] MEDS ORDERED: propofoL 200 MG/20 ML VIAL IV ONE ×2 (08:49→09:09)
[2020-05-23] MEDS ORDERED: LIDOCAINE 2% 5 ML VIAL ONE (08:49)
[2020-05-23] MEDS ORDERED: ETOMIDATE 20 MG/10 ML VIAL IV ONE (08:49)
[2020-05-23] MEDS: LACTULOSE 20 GM/30 ML UDCUP PO SCH ×3 (09:17→21:16)
[2020-05-23] MEDS: POTASSIUM CHLORIDE 20 MEQ TABLET PO SCH ×2 (09:18→15:14)
[2020-05-23] MEDS: PANTOPRAZOLE 40 MG VIAL IV SCH (09:18)
[2020-05-23] MEDS: RIFAXIMIN 550 MG TABLET PO SCH ×2 (09:18→21:16)
[2020-05-23] MEDS ORDERED: ALBUTEROL/IPRATROPIUM 3 ML NEB RESP TX STA (09:26)
[2020-05-23] MEDS ORDERED: SODIUM CHLORIDE 0.9% 1,000 ML IV PRN (09:35)
[2020-05-23] MEDS ORDERED: FUROSEMIDE 40 MG/4 ML VIAL IV ONE (17:52)
[2020-05-23] MEDS: ALBUTEROL/IPRATROPIUM 3 ML NEB RESP TX SCH (18:25)
[2020-05-23] MEDS: INSULIN GLARGINE 100 UNIT/ML SUBCUT SCH (21:16)
[2020-05-23] MEDS: LEVOFLOXACIN INJ 500 MG in PREMIX 1 EACH IV SCH (21:46)
[2020-05-23] MEDS: PIPERACILLIN/TAZOBACTAM 3,375 MG in SODIUM CHLORIDE 0.9% 100 ML IV SCH (23:03)
[2020-05-24 00:29] LABS: ABG Base Excess -0.7 MMOL/L (-2.5-2.5); ABG HCO3 23.7 MMOL/L (20-26); ABG Oxygen Saturation 87.6 % (95-100); ABG PH 7.535 (7.35-7.45); ABG PO2 47.7 MM HG (80-95); ABG TCO2 19.5 MMOL/L (23-27); Allen Test Positive; Pt O2 Delivery Device BIPAP
[2020-05-24] MEDS: ALBUTEROL/IPRATROPIUM 3 ML NEB RESP TX SCH ×4 (01:30→19:39)
[2020-05-24] MEDS: CLORAZEPATE 7.5 MG TABLET PO PRN ×3 (01:58→21:32)
[2020-05-24 03:56] LABS: Basophils % 0.5 % (0.0-0.8); Eosinophils % 0.9 % (0.00-10.9); Hematocrit 21.6 VOL% (35.7-47.0); Immature Granulocytes % 0.7 %; Immature Granulocytes Absolute 0.03 #; Lymphocytes # 0.6 10*3/uL (1.4-4.0); Lymphocytes % 12.6 % (21.3-54.2); Mean Corpuscular HGB Conc 32.4 GM/DL (32-36); Mean Corpuscular Volume 112.5 FL (87-102); Monocytes % 6.6 % (1.7-12.7); Neutrophils % 78.7 % (38.7-73.9); Red Cell Distribution Width 18.6 % (9.3-17.3); White Blood Count 4.4 T/CUMM (4-12)
[2020-05-24 04:27] LABS: Albumin 1.8 G/DL (3.4-5.0); Bilirubin,Total 2.7 MG/DL (0.2-1.0); Calcium 7.6 MG/DL (8.5-10.1); Osmolality,Calculated 292.1 MOS/KG (273-304); Potassium 3.8 MMOL/L (3.5-5.1); Total Protein 4.3 G/DL (6.4-8.2)
[2020-05-24 04:30] LABS: Platelet Count 30 T/CUMM (130-400); Red Blood Count 1.92 MC/CUMM (3.8-5.5)
[2020-05-24 04:34] LABS: Hypochromasia 1+; Microcytosis 1+; Platelet Estimate Decreased
[2020-05-24 04:36] LABS: INR 1.3; PT Patient Result 13.6 SECS (9.8-11.9)
[2020-05-24] MEDS ORDERED: SODIUM CHLORIDE 0.9% 1,000 ML IV PRN ×3 (04:42→07:34)
[2020-05-24] MEDS: PIPERACILLIN/TAZOBACTAM 3,375 MG in SODIUM CHLORIDE 0.9% 100 ML IV SCH ×2 (06:05→13:00)
[2020-05-24] MEDS: INSULIN REGULAR 100 UNIT/ML SUBCUT SCH ×3 (06:17→19:06)
[2020-05-24] MEDS ORDERED: FUROSEMIDE 20 MG/2 ML VIAL IV PRN (07:34)
[2020-05-24] MEDS: RIFAXIMIN 550 MG TABLET PO SCH ×2 (09:34→21:31)
[2020-05-24] MEDS: PANTOPRAZOLE 40 MG VIAL IV SCH (09:35)
[2020-05-24] MEDS: FUROSEMIDE 40 MG/4 ML VIAL IV SCH (09:36)
[2020-05-24] MEDS: LACTULOSE 20 GM/30 ML UDCUP PO SCH ×2 (09:36→21:31)
[2020-05-24] MEDS: LACTATED RINGERS 1,000 ML IV SCH (11:54)
[2020-05-24] MEDS ORDERED: traMADol 50 MG TABLET PO PRN (14:35)
[2020-05-24] MEDS ORDERED: INSULIN GLARGINE 100 UNIT/ML SUBCUT SCH (21:00)
[2020-05-24] MEDS: LEVOFLOXACIN INJ 500 MG in PREMIX 1 EACH IV SCH (21:31)
[2020-05-24] MEDS: INSULIN GLARGINE 100 UNIT/ML SUBCUT SCH (21:31)
[2020-05-25] MEDS: PIPERACILLIN/TAZOBACTAM 3,375 MG in SODIUM CHLORIDE 0.9% 100 ML IV SCH ×3 (00:31→16:49)
[2020-05-25] MEDS: INSULIN REGULAR 100 UNIT/ML SUBCUT SCH ×4 (00:32→18:39)
[2020-05-25 06:13] LABS: Basophils % 0.4 % (0.0-0.8); Eosinophils # 0.2 10*3/uL (0.0-0.87); Eosinophils % 6.7 % (0.00-10.9); Hematocrit 21.5 VOL% (35.7-47.0); Immature Granulocytes % 0.7 %; Immature Granulocytes Absolute 0.02 #; Lymphocytes # 0.5 10*3/uL (1.4-4.0); Lymphocytes % 17.9 % (21.3-54.2); Mean Corpuscular HGB Conc 32.6 GM/DL (32-36); Mean Corpuscular Volume 116.2 FL (87-102); Mean Platelet Volume 10.9 FL (9.6-12.0); Monocytes % 8.2 % (1.7-12.7); Neutrophils % 66.1 % (38.7-73.9); Red Blood Count 1.85 MC/CUMM (3.8-5.5); Red Cell Distribution Width 18.9 % (9.3-17.3); White Blood Count 2.7 T/CUMM (4-12)
[2020-05-25 06:15] LABS: Platelet Count 28 T/CUMM (130-400)
[2020-05-25 06:34] LABS: Hypochromasia 2+; Microcytosis 1+; Platelet Estimate Decreased
[2020-05-25 06:43] LABS: Albumin 1.9 G/DL (3.4-5.0); Bilirubin,Total 1.8 MG/DL (0.2-1.0); Calcium 7.7 MG/DL (8.5-10.1); Osmolality,Calculated 287.3 MOS/KG (273-304); Potassium 3.3 MMOL/L (3.5-5.1); Total Protein 4.4 G/DL (6.4-8.2)
[2020-05-25] MEDS ORDERED: SODIUM CHLORIDE 0.9% 1,000 ML IV PRN (07:48)
[2020-05-25] MEDS: ALBUTEROL/IPRATROPIUM 3 ML NEB RESP TX SCH ×4 (08:12→19:37)
[2020-05-25] MEDS ORDERED: SPIRONOLACTONE 50 MG TABLET PO SCH (09:00)
[2020-05-25] MEDS: RIFAXIMIN 550 MG TABLET PO SCH ×2 (09:57→21:18)
[2020-05-25] MEDS: CALCIUM (CARBONATE)/VITAMIN D 500 MG-200 UNIT TABLET PO SCH (09:57)
[2020-05-25] MEDS: FUROSEMIDE 40 MG/4 ML VIAL IV SCH (09:57)
[2020-05-25] MEDS: LACTATED RINGERS 1,000 ML IV SCH (09:58)
[2020-05-25] MEDS: PANTOPRAZOLE 40 MG VIAL IV SCH (09:58)
[2020-05-25] MEDS: INSULIN GLARGINE 100 UNIT/ML SUBCUT SCH ×2 (09:58→21:18)
[2020-05-25] MEDS: LACTULOSE 20 GM/30 ML UDCUP PO SCH ×2 (09:59→21:19)
[2020-05-25] MEDS: POTASSIUM CHLORIDE 20 MEQ TABLET PO PRN (10:02)
[2020-05-25] MEDS ORDERED: FUROSEMIDE 40 MG/4 ML VIAL IV ONE (11:30)
[2020-05-25 14:39] LABS: Hb A 95.4 % (95.8-98.0); Hb A2 1.3 % (2.0-3.3); Hb F 3.3 % (0.0-0.9)
[2020-05-25] MEDS: CLORAZEPATE 7.5 MG TABLET PO PRN (15:15)
[2020-05-25] MEDS ORDERED: ACETAMINOPHEN 325 MG/10.15 ML UDCUP PO ONE (15:34)
[2020-05-25] MEDS: LEVOFLOXACIN INJ 500 MG in PREMIX 1 EACH IV SCH (21:07)
[2020-05-26] MEDS: PIPERACILLIN/TAZOBACTAM 3,375 MG in SODIUM CHLORIDE 0.9% 100 ML IV SCH ×4 (00:29→22:43)
[2020-05-26] MEDS: ALBUTEROL/IPRATROPIUM 3 ML NEB RESP TX SCH ×4 (01:50→19:15)
[2020-05-26] MEDS: INSULIN REGULAR 100 UNIT/ML SUBCUT SCH ×4 (02:25→19:04)
[2020-05-26 04:28] LABS: Basophils % 0.7 % (0.0-0.8); Eosinophils % 1.3 % (0.00-10.9); Hematocrit 19.5 VOL% (35.7-47.0); Immature Granulocytes % 0.7 %; Immature Granulocytes Absolute 0.02 #; Lymphocytes # 0.6 10*3/uL (1.4-4.0); Lymphocytes % 19.2 % (21.3-54.2); Mean Corpuscular HGB Conc 32.8 GM/DL (32-36); Mean Corpuscular Volume 115.4 FL (87-102); Monocytes % 9.1 % (1.7-12.7); Red Blood Count 1.69 MC/CUMM (3.8-5.5); Red Cell Distribution Width 19.4 % (9.3-17.3); White Blood Count 3.1 T/CUMM (4-12)
[2020-05-26 04:30] LABS: Hemoglobin 6.4 GM/DL (12.0-16.0); Platelet Count 25 T/CUMM (130-400)
[2020-05-26 04:45] LABS: Hypochromasia 1+; Microcytosis 1+
[2020-05-26 04:47] LABS: Calcium 7.4 MG/DL (8.5-10.1); Osmolality,Calculated 289.5 MOS/KG (273-304); Potassium 3.6 MMOL/L (3.5-5.1)
[2020-05-26 04:49] LABS: Albumin 1.6 G/DL (3.4-5.0); Calcium 7.1 MG/DL (8.5-10.1); Osmolality,Calculated 291.4 MOS/KG (273-304); Potassium 3.7 MMOL/L (3.5-5.1); Total Protein 4.1 G/DL (6.4-8.2)
[2020-05-26 05:07] LABS: Hemoglobin A1 (Alkaline) 95.4 % (96.5-98.5); Hemoglobin A2 (Alkaline) 1.3 % (1.5-3.5); Hemoglobin F (Alkaline) 3.3 %
[2020-05-26] MEDS: INSULIN GLARGINE 100 UNIT/ML SUBCUT SCH ×2 (09:09→21:10)
[2020-05-26] MEDS: SPIRONOLACTONE 50 MG TABLET PO SCH ×2 (09:10→20:15)
[2020-05-26] MEDS: CALCIUM (CARBONATE)/VITAMIN D 500 MG-200 UNIT TABLET PO SCH (09:10)
[2020-05-26] MEDS: LACTULOSE 20 GM/30 ML UDCUP PO SCH ×2 (09:10→20:15)
[2020-05-26] MEDS: RIFAXIMIN 550 MG TABLET PO SCH ×2 (09:10→20:15)
[2020-05-26] MEDS: PANTOPRAZOLE 40 MG VIAL IV SCH (09:10)
[2020-05-26] MEDS: FUROSEMIDE 40 MG/4 ML VIAL IV SCH (11:53)
[2020-05-26] MEDS: CLORAZEPATE 7.5 MG TABLET PO PRN (21:38)
[2020-05-26] MEDS: LEVOFLOXACIN INJ 500 MG in PREMIX 1 EACH IV SCH (21:38)
[2020-05-27] MEDS: ALBUTEROL/IPRATROPIUM 3 ML NEB RESP TX SCH ×4 (00:05→20:03)
[2020-05-27] MEDS: INSULIN REGULAR 100 UNIT/ML SUBCUT SCH ×4 (00:43→17:58)
[2020-05-27] MEDS: PIPERACILLIN/TAZOBACTAM 3,375 MG in SODIUM CHLORIDE 0.9% 100 ML IV SCH ×3 (06:28→22:26)
[2020-05-27 06:49] LABS: Basophils % 1.2 % (0.0-0.8); Eosinophils # 0.2 10*3/uL (0.0-0.87); Hematocrit 23.9 VOL% (35.7-47.0); Hemoglobin 7.9 GM/DL (12.0-16.0); Immature Granulocytes % 0.8 %; Immature Granulocytes Absolute 0.02 #; Lymphocytes # 0.7 10*3/uL (1.4-4.0); Lymphocytes % 28.3 % (21.3-54.2); Mean Corpuscular HGB Conc 33.1 GM/DL (32-36); Mean Corpuscular Volume 109.6 FL (87-102); Neutrophils % 55.7 % (38.7-73.9); Red Blood Count 2.18 MC/CUMM (3.8-5.5); Red Cell Distribution Width 19.4 % (9.3-17.3); White Blood Count 2.5 T/CUMM (4-12)
[2020-05-27 06:50] LABS: Platelet Count 26 T/CUMM (130-400)
[2020-05-27 07:05] LABS: Albumin 1.7 G/DL (3.4-5.0); Bilirubin,Total 1.6 MG/DL (0.2-1.0); Calcium 7.6 MG/DL (8.5-10.1); Osmolality,Calculated 292.1 MOS/KG (273-304); Potassium 3.7 MMOL/L (3.5-5.1); Total Protein 4.2 G/DL (6.4-8.2)
[2020-05-27 07:06] LABS: Calcium 7.8 MG/DL (8.5-10.1); Osmolality,Calculated 291.3 MOS/KG (273-304); Potassium 3.6 MMOL/L (3.5-5.1)
[2020-05-27 07:26] LABS: Anisocytosis 1+; Hypochromasia 1+; Microcytosis 1+; Polychromasia Slight
[2020-05-27 07:27] LABS: Ovalocytes Slight; Platelet Estimate Decreased
[2020-05-27] MEDS: SPIRONOLACTONE 50 MG TABLET PO SCH ×2 (09:17→21:04)
[2020-05-27] MEDS: RIFAXIMIN 550 MG TABLET PO SCH ×2 (09:17→21:04)
[2020-05-27] MEDS: CALCIUM (CARBONATE)/VITAMIN D 500 MG-200 UNIT TABLET PO SCH (09:17)
[2020-05-27] MEDS: INSULIN GLARGINE 100 UNIT/ML SUBCUT SCH ×2 (09:17→21:05)
[2020-05-27] MEDS: FUROSEMIDE 40 MG/4 ML VIAL IV SCH (09:18)
[2020-05-27] MEDS: PANTOPRAZOLE 40 MG VIAL IV SCH (09:18)
[2020-05-27] MEDS: LACTULOSE 20 GM/30 ML UDCUP PO SCH ×3 (09:19→21:04)
[2020-05-27] MEDS ORDERED: ALBUMIN 25% 50 GM in PREMIX 1 EACH IV ONE (09:45)
[2020-05-27] MEDS: CLORAZEPATE 7.5 MG TABLET PO PRN (21:04)
[2020-05-27] MEDS: LEVOFLOXACIN INJ 500 MG in PREMIX 1 EACH IV SCH (21:05)
[2020-05-28] MEDS: INSULIN REGULAR 100 UNIT/ML SUBCUT SCH ×4 (00:19→17:54)
[2020-05-28] MEDS: ALBUTEROL/IPRATROPIUM 3 ML NEB RESP TX SCH ×4 (00:42→19:27)
[2020-05-28] MEDS: PIPERACILLIN/TAZOBACTAM 3,375 MG in SODIUM CHLORIDE 0.9% 100 ML IV SCH (05:00)
[2020-05-28 05:26] LABS: Eosinophils # 0.2 10*3/uL (0.0-0.87); Eosinophils % 5.3 % (0.00-10.9); Immature Granulocytes % 0.7 %; Immature Granulocytes Absolute 0.02 #; Lymphocytes # 0.9 10*3/uL (1.4-4.0); Lymphocytes % 30.4 % (21.3-54.2); Mean Corpuscular HGB Conc 33.3 GM/DL (32-36); Mean Corpuscular Volume 109.6 FL (87-102); Mean Platelet Volume 13.9 FL (9.6-12.0); Monocytes % 8.3 % (1.7-12.7); Neutrophils % 54.3 % (38.7-73.9); Red Blood Count 2.19 MC/CUMM (3.8-5.5); Red Cell Distribution Width 19.4 % (9.3-17.3)
[2020-05-28 05:30] LABS: Platelet Count 30 T/CUMM (130-400)
[2020-05-28 05:42] LABS: Albumin 2.4 G/DL (3.4-5.0); Bilirubin,Total 1.5 MG/DL (0.2-1.0); Calcium 7.8 MG/DL (8.5-10.1); Potassium 3.1 MMOL/L (3.5-5.1); Total Protein 4.5 G/DL (6.4-8.2)
[2020-05-28 05:46] LABS: INR 1.2; PT Patient Result 12.4 SECS (9.8-11.9)
[2020-05-28 06:37] LABS: Platelet Estimate Decreased; Polychromasia Slight
[2020-05-28 06:38] LABS: Macrocytosis 2+; Ovalocytes Few
[2020-05-28] MEDS: SPIRONOLACTONE 50 MG TABLET PO SCH (09:28)
[2020-05-28] MEDS: POTASSIUM CHLORIDE 20 MEQ/15 ML UDCUP PO PRN (09:28)
[2020-05-28] MEDS: CALCIUM (CARBONATE)/VITAMIN D 500 MG-200 UNIT TABLET PO SCH (09:28)
[2020-05-28] MEDS: FUROSEMIDE 40 MG TABLET PO SCH (09:28)
[2020-05-28] MEDS: LACTULOSE 20 GM/30 ML UDCUP PO SCH ×3 (09:29→21:07)
[2020-05-28] MEDS: PANTOPRAZOLE 40 MG VIAL IV SCH (09:29)
[2020-05-28] MEDS: INSULIN GLARGINE 100 UNIT/ML SUBCUT SCH ×2 (09:29→21:07)
[2020-05-28] MEDS: CLORAZEPATE 7.5 MG TABLET PO PRN ×2 (09:30→21:08)
[2020-05-28] MEDS ORDERED: DEXAMETHASONE INJ 40 MG in SODIUM CHLORIDE 0.9% 50 ML IV SCH (12:00)
[2020-05-28] MEDS: DEXAMETHASONE INJ 40 MG in SODIUM CHLORIDE 0.9% 50 ML IV SCH (13:05)
[2020-05-28] MEDS: SPIRONOLACTONE 100 MG TABLET PO SCH (21:07)
[2020-05-28] MEDS: LEVOFLOXACIN INJ 500 MG in PREMIX 1 EACH IV SCH (21:08)
[2020-05-29] MEDS: INSULIN REGULAR 100 UNIT/ML SUBCUT SCH ×4 (00:19→17:13)
[2020-05-29] MEDS: ALBUTEROL/IPRATROPIUM 3 ML NEB RESP TX SCH ×4 (00:19→19:54)
[2020-05-29] MEDS: POTASSIUM CHLORIDE 20 MEQ/15 ML UDCUP PO PRN ×3 (00:45→04:00)
[2020-05-29 06:45] LABS: Basophils % 0.3 % (0.0-0.8); Hemoglobin 9.4 GM/DL (12.0-16.0); Immature Granulocytes % 0.3 %; Immature Granulocytes Absolute 0.01 #; Lymphocytes # 0.5 10*3/uL (1.4-4.0); Lymphocytes % 14.7 % (21.3-54.2); Mean Corpuscular HGB Conc 32.4 GM/DL (32-36); Mean Corpuscular Volume 109.4 FL (87-102); Monocytes % 2.9 % (1.7-12.7); Neutrophils % 81.8 % (38.7-73.9); Red Blood Count 2.65 MC/CUMM (3.8-5.5); Red Cell Distribution Width 19.8 % (9.3-17.3); White Blood Count 3.1 T/CUMM (4-12)
[2020-05-29 06:48] LABS: Platelet Count 28 T/CUMM (130-400)
[2020-05-29 07:22] LABS: Albumin 2.4 G/DL (3.4-5.0); Calcium 8.5 MG/DL (8.5-10.1); Osmolality,Calculated 292.4 MOS/KG (273-304); Potassium 4.5 MMOL/L (3.5-5.1); Total Protein 4.8 G/DL (6.4-8.2)
[2020-05-29] MEDS: INSULIN GLARGINE 100 UNIT/ML SUBCUT SCH ×2 (09:21→21:05)
[2020-05-29] MEDS: PANTOPRAZOLE 40 MG VIAL IV SCH (09:22)
[2020-05-29] MEDS: FUROSEMIDE 40 MG TABLET PO SCH (09:22)
[2020-05-29] MEDS: CALCIUM (CARBONATE)/VITAMIN D 500 MG-200 UNIT TABLET PO SCH (09:22)
[2020-05-29] MEDS: SPIRONOLACTONE 100 MG TABLET PO SCH ×2 (09:22→21:04)
[2020-05-29] MEDS: CLORAZEPATE 7.5 MG TABLET PO PRN (09:22)
[2020-05-29] MEDS: LACTULOSE 20 GM/30 ML UDCUP PO SCH ×3 (09:22→21:04)
[2020-05-29] MEDS: DEXAMETHASONE INJ 40 MG in SODIUM CHLORIDE 0.9% 50 ML IV SCH (09:26)
[2020-05-29] MEDS: LEVOFLOXACIN INJ 500 MG in PREMIX 1 EACH IV SCH (21:05)
[2020-05-30] MEDS: CLORAZEPATE 7.5 MG TABLET PO PRN ×2 (00:12→09:34)
[2020-05-30] MEDS: INSULIN REGULAR 100 UNIT/ML SUBCUT SCH ×4 (00:12→17:31)
[2020-05-30] MEDS: ALBUTEROL/IPRATROPIUM 3 ML NEB RESP TX SCH ×4 (00:39→20:02)
[2020-05-30 06:11] LABS: Calcium 8.8 MG/DL (8.5-10.1); Osmolality,Calculated 295.5 MOS/KG (273-304); Potassium 4.1 MMOL/L (3.5-5.1)
[2020-05-30] MEDS: FUROSEMIDE 40 MG TABLET PO SCH (09:33)
[2020-05-30] MEDS: RIFAXIMIN 550 MG TABLET PO SCH ×2 (09:33→20:20)
[2020-05-30] MEDS: CALCIUM (CARBONATE)/VITAMIN D 500 MG-200 UNIT TABLET PO SCH (09:33)
[2020-05-30] MEDS: LACTULOSE 20 GM/30 ML UDCUP PO SCH ×2 (09:33→20:21)
[2020-05-30] MEDS: SPIRONOLACTONE 100 MG TABLET PO SCH (09:34)
[2020-05-30] MEDS: INSULIN GLARGINE 100 UNIT/ML SUBCUT SCH ×2 (09:35→20:21)
[2020-05-30] MEDS: PANTOPRAZOLE 40 MG VIAL IV SCH (09:44)
[2020-05-30] MEDS: DEXAMETHASONE INJ 40 MG in SODIUM CHLORIDE 0.9% 50 ML IV SCH (09:44)
[2020-05-30] MEDS: LEVOFLOXACIN INJ 500 MG in PREMIX 1 EACH IV SCH (20:37)
[2020-05-31] MEDS: INSULIN REGULAR 100 UNIT/ML SUBCUT SCH ×4 (00:48→18:14)
[2020-05-31 05:54] LABS: Basophils % 0.2 % (0.0-0.8); Hematocrit 28.8 VOL% (35.7-47.0); Hemoglobin 9.6 GM/DL (12.0-16.0); Immature Granulocytes Absolute 0.06 #; Lymphocytes # 0.6 10*3/uL (1.4-4.0); Lymphocytes % 9.9 % (21.3-54.2); Mean Corpuscular HGB Conc 33.3 GM/DL (32-36); Mean Corpuscular Volume 105.9 FL (87-102); Mean Platelet Volume 13.2 FL (9.6-12.0); Monocytes % 4.9 % (1.7-12.7); Red Blood Count 2.72 MC/CUMM (3.8-5.5); Red Cell Distribution Width 19.5 % (9.3-17.3); White Blood Count 6.1 T/CUMM (4-12)
[2020-05-31 06:02] LABS: Calcium 8.6 MG/DL (8.5-10.1); Osmolality,Calculated 291.8 MOS/KG (273-304)
[2020-05-31 06:32] LABS: Platelet Count 38 T/CUMM (130-400)
[2020-05-31] MEDS: ALBUTEROL/IPRATROPIUM 3 ML NEB RESP TX SCH ×4 (08:01→19:24)
[2020-05-31] MEDS: CLORAZEPATE 7.5 MG TABLET PO PRN (09:24)
[2020-05-31] MEDS: SPIRONOLACTONE 100 MG TABLET PO SCH (09:24)
[2020-05-31] MEDS: FUROSEMIDE 40 MG TABLET PO SCH (09:24)
[2020-05-31] MEDS: INSULIN GLARGINE 100 UNIT/ML SUBCUT SCH ×2 (09:24→21:50)
[2020-05-31] MEDS: RIFAXIMIN 550 MG TABLET PO SCH ×2 (09:24→21:51)
[2020-05-31] MEDS: LACTULOSE 20 GM/30 ML UDCUP PO SCH ×2 (09:24→21:51)
[2020-05-31] MEDS: CALCIUM (CARBONATE)/VITAMIN D 500 MG-200 UNIT TABLET PO SCH (09:25)
[2020-05-31] MEDS: PANTOPRAZOLE 40 MG VIAL IV SCH (09:25)
[2020-05-31] MEDS: DEXAMETHASONE INJ 40 MG in SODIUM CHLORIDE 0.9% 50 ML IV SCH (10:08)
[2020-05-31] MEDS ORDERED: TUBERCULIN SKIN TEST 0.1 ML SYRINGE INTRADERM ONE (11:03)
[2020-06-01] MEDS: INSULIN REGULAR 100 UNIT/ML SUBCUT SCH ×4 (00:53→18:29)
[2020-06-01] MEDS: ALBUTEROL/IPRATROPIUM 3 ML NEB RESP TX SCH ×4 (01:08→19:57)
[2020-06-01 05:17] LABS: Basophils % 0.1 % (0.0-0.8); Eosinophils # 0.1 10*3/uL (0.0-0.87); Eosinophils % 1.1 % (0.00-10.9); Hematocrit 32.7 VOL% (35.7-47.0); Hemoglobin 10.5 GM/DL (12.0-16.0); Immature Granulocytes % 0.8 %; Immature Granulocytes Absolute 0.06 #; Lymphocytes # 1.3 10*3/uL (1.4-4.0); Lymphocytes % 17.4 % (21.3-54.2); Mean Corpuscular HGB Conc 32.1 GM/DL (32-36); Mean Corpuscular Volume 107.6 FL (87-102); Mean Platelet Volume 12.5 FL (9.6-12.0); Neutrophils % 71.6 % (38.7-73.9); Platelet Count 49 T/CUMM (130-400); Red Blood Count 3.04 MC/CUMM (3.8-5.5); Red Cell Distribution Width 19.8 % (9.3-17.3); White Blood Count 7.3 T/CUMM (4-12)
[2020-06-01 05:39] LABS: Hypochromasia Slight; Microcytosis Slight; Ovalocytes Slight; Platelet Estimate Decreased
[2020-06-01 05:40] LABS: Calcium 8.3 MG/DL (8.5-10.1); Osmolality,Calculated 285.5 MOS/KG (273-304); Potassium 3.9 MMOL/L (3.5-5.1)
[2020-06-01] MEDS ORDERED: MORPHINE 4 MG/1 ML VIAL IV ONE (07:32)
[2020-06-01] MEDS ORDERED: ALPRAZolam 0.25 MG TABLET PO PRN (07:56)
[2020-06-01] MEDS: LACTULOSE 20 GM/30 ML UDCUP PO SCH ×2 (08:52→20:52)
[2020-06-01] MEDS: RIFAXIMIN 550 MG TABLET PO SCH ×2 (08:53→20:51)
[2020-06-01] MEDS: FUROSEMIDE 40 MG TABLET PO SCH (08:53)
[2020-06-01] MEDS: CALCIUM (CARBONATE)/VITAMIN D 500 MG-200 UNIT TABLET PO SCH (08:53)
[2020-06-01] MEDS: SPIRONOLACTONE 100 MG TABLET PO SCH (08:53)
[2020-06-01] MEDS: PANTOPRAZOLE 40 MG VIAL IV SCH (08:54)
[2020-06-01] MEDS: INSULIN GLARGINE 100 UNIT/ML SUBCUT SCH ×2 (08:54→20:52)
[2020-06-02] MEDS: INSULIN REGULAR 100 UNIT/ML SUBCUT SCH ×4 (00:08→19:59)
[2020-06-02] MEDS: ALBUTEROL/IPRATROPIUM 3 ML NEB RESP TX SCH ×4 (00:14→19:38)
[2020-06-02 06:24] LABS: Basophils % 0.1 % (0.0-0.8); Eosinophils # 0.6 10*3/uL (0.0-0.87); Eosinophils % 3.9 % (0.00-10.9); Hematocrit 37.7 VOL% (35.7-47.0); Hemoglobin 12.2 GM/DL (12.0-16.0); Immature Granulocytes % 0.6 %; Immature Granulocytes Absolute 0.09 #; Lymphocytes # 1.7 10*3/uL (1.4-4.0); Lymphocytes % 11.6 % (21.3-54.2); Mean Corpuscular HGB Conc 32.4 GM/DL (32-36); Mean Corpuscular Volume 107.4 FL (87-102); Mean Platelet Volume 12.8 FL (9.6-12.0); Monocytes % 5.2 % (1.7-12.7); Neutrophils % 78.6 % (38.7-73.9); Platelet Count 60 T/CUMM (130-400); Red Blood Count 3.51 MC/CUMM (3.8-5.5); Red Cell Distribution Width 19.8 % (9.3-17.3)
[2020-06-02 06:40] LABS: Calcium 8.4 MG/DL (8.5-10.1); Osmolality,Calculated 282.5 MOS/KG (273-304); Potassium 3.7 MMOL/L (3.5-5.1)
[2020-06-02 06:57] LABS: Hypochromasia Slight; Microcytosis 1+; Ovalocytes Few
[2020-06-02 06:58] LABS: Platelet Estimate Decreased
[2020-06-02] MEDS ORDERED: PROMETHAZINE INJ 12.5 MG in SODIUM CHLORIDE 0.9% 50 ML IV PRN (07:14)
[2020-06-02] MEDS ORDERED: ACETAMINOPHEN 500 MG TABLET PO PRN (07:16)
[2020-06-02] MEDS: RIFAXIMIN 550 MG TABLET PO SCH ×2 (10:09→21:31)
[2020-06-02] MEDS: PANTOPRAZOLE 40 MG VIAL IV SCH (10:09)
[2020-06-02] MEDS: FUROSEMIDE 40 MG TABLET PO SCH (10:09)
[2020-06-02] MEDS: SPIRONOLACTONE 100 MG TABLET PO SCH (10:09)
[2020-06-02] MEDS: LACTULOSE 20 GM/30 ML UDCUP PO SCH ×3 (10:09→21:31)
[2020-06-02] MEDS: CALCIUM (CARBONATE)/VITAMIN D 500 MG-200 UNIT TABLET PO SCH (10:09)
[2020-06-02] MEDS: INSULIN GLARGINE 100 UNIT/ML SUBCUT SCH ×2 (10:10→21:31)
[2020-06-03] MEDS: ALBUTEROL/IPRATROPIUM 3 ML NEB RESP TX SCH ×3 (00:19→13:39)
[2020-06-03] MEDS: INSULIN REGULAR 100 UNIT/ML SUBCUT SCH ×3 (01:43→12:40)
[2020-06-03 07:34] LABS: Eosinophils # 0.5 10*3/uL (0.0-0.87); Eosinophils % 7.6 % (0.00-10.9); Hematocrit 31.6 VOL% (35.7-47.0); Hemoglobin 10.3 GM/DL (12.0-16.0); Immature Granulocytes % 0.5 %; Immature Granulocytes Absolute 0.03 #; Lymphocytes # 1.1 10*3/uL (1.4-4.0); Lymphocytes % 18.4 % (21.3-54.2); Mean Corpuscular HGB Conc 32.6 GM/DL (32-36); Mean Corpuscular Volume 107.8 FL (87-102); Mean Platelet Volume 13.2 FL (9.6-12.0); Monocytes % 7.6 % (1.7-12.7); Neutrophils % 65.9 % (38.7-73.9); Platelet Count 43 T/CUMM (130-400); Red Blood Count 2.93 MC/CUMM (3.8-5.5); Red Cell Distribution Width 19.4 % (9.3-17.3); White Blood Count 5.9 T/CUMM (4-12)
[2020-06-03 07:52] LABS: Calcium 7.7 MG/DL (8.5-10.1); Osmolality,Calculated 280.5 MOS/KG (273-304); Potassium 3.6 MMOL/L (3.5-5.1)
[2020-06-03 07:53] LABS: Hypochromasia Slight
[2020-06-03 07:54] LABS: Microcytosis 1+
[2020-06-03 07:55] LABS: Anisocytosis 1+; Platelet Estimate Decreased
[2020-06-03] MEDS: INSULIN GLARGINE 100 UNIT/ML SUBCUT SCH (09:00)
[2020-06-03] MEDS: LACTULOSE 20 GM/30 ML UDCUP PO SCH ×2 (10:03→14:35)
[2020-06-03] MEDS: PANTOPRAZOLE 40 MG VIAL IV SCH (10:04)
[2020-06-03] MEDS: FUROSEMIDE 40 MG TABLET PO SCH (11:42)
[2020-06-03] MEDS: SPIRONOLACTONE 100 MG TABLET PO SCH (11:42)
[2020-06-03] MEDS: CALCIUM (CARBONATE)/VITAMIN D 500 MG-200 UNIT TABLET PO SCH (11:43)
[2020-06-03] MEDS: RIFAXIMIN 550 MG TABLET PO SCH (11:43)
[2020-06-03 12:24] VITALS: BP 143/52
== END 2020-06-03 15:20 | DRG 441 ==
LOC: N.ED 08:28 → N.EDINP 08:28 → N.4E 10:53 → SUATTDRO 05-23 15:24
PROVIDERS: ADMIT Hospitalist; ATTEND Hospitalist

== ENCOUNTER 2021-04-04 13:44 | Inpatient (IN) ==
[2021-04-04] MEDS ORDERED: SODIUM CHLORIDE 0.9% 1,000 ML IV STA (14:11)
[2021-04-04 14:51] LABS: Basophils % 0.7 % (0.0-0.8); Eosinophils # 0.1 10*3/uL (0.0-0.87); Eosinophils % 4.1 % (0.00-10.9); Hematocrit 23.5 VOL% (35.7-47.0); Hemoglobin 7.6 GM/DL (12.0-16.0); Immature Granulocytes % 0.4 %; Immature Granulocytes Absolute 0.01 #; Lymphocytes # 0.7 10*3/uL (1.4-4.0); Lymphocytes % 25.1 % (21.3-54.2); Mean Corpuscular HGB Conc 32.3 GM/DL (32-36); Mean Corpuscular Volume 114.6 FL (87-102); Mean Platelet Volume 10.2 FL (9.6-12.0); Neutrophils % 60.7 % (38.7-73.9); Platelet Count 64 T/CUMM (130-400); Red Blood Count 2.05 MC/CUMM (3.8-5.5); Red Cell Distribution Width 16.6 % (9.3-17.3); White Blood Count 2.7 T/CUMM (4-12)
[2021-04-04 14:58] LABS: INR 1.1; PT Patient Result 11.8 SECS (10.5-12.0); Partial Thromboplastin Time 23.6 SECS (23.8-32.1)
[2021-04-04] MEDS ORDERED: PIPERACILLIN/TAZOBACTAM 3,375 MG in SODIUM CHLORIDE 0.9% 100 ML IV STA (14:59)
[2021-04-04 15:15] LABS: Bacteria,Urine Occasional /HPF (Few); Bilirubin,Urine Negative (Negative); Blood, Urine Moderate mg/dL (Negative); Glucose,Urine (UA) 50 mg/dL (Negative); Ketones,Urine Negative (Negative); Mucus,Urine Occasional /LPF (Occasional); Nitrite,Urine Negative (Negative); Protein,Urine >=500 MG/DL; RBC,Urine 21 /HPF (0-4); Squamous Epithelial Cell,Urine Moderate /HPF (0-10); Urine Appearance Slightly Hazy (Clear); Urine Color Amber (Yellow); Urine Specific Gravity 1.018 (1.001-1.035)
[2021-04-04] MEDS ORDERED: GLUCAGON 1 MG VIAL IM PRN ×2 (15:25)
[2021-04-04] MEDS ORDERED: DEXTROSE 10% 250 ML BAG IV PRN (15:25)
[2021-04-04] MEDS ORDERED: DEXTROSE 50% 25 GM/50 ML VIAL IV PRN (15:25)
[2021-04-04 15:28] LABS: Albumin 1.5 G/DL (3.4-5.0); Bilirubin,Total 2.5 MG/DL (0.20-1.00); Calcium 8.2 MG/DL (8.5-10.1); Osmolality,Calculated 295.7 MOS/KG (273-304); Potassium 3.5 MMOL/L (3.5-5.1); Thyroid Stimulating Hormone 3.12 uIU/ml (0.358-3.74)
[2021-04-04] MEDS: cefTRIAXone 1,000 MG in SODIUM CHLORIDE 0.9% 100 ML IV SCH (16:14)
[2021-04-04] MEDS: INSULIN LISPRO 100 UNIT/ML SUBCUT SCH ×2 (16:28→23:47)
[2021-04-04] MEDS ORDERED: SODIUM CHLORIDE 0.9% 1,000 ML IV PRN ×2 (17:05→20:20)
[2021-04-04] MEDS ORDERED: FUROSEMIDE 40 MG/4 ML VIAL IV ONE (17:06)
[2021-04-04] MEDS: LACTULOSE 20 GM/30 ML UDCUP PO SCH ×2 (17:25→23:47)
[2021-04-04 17:35] LABS: % Iron Saturation 84.2 % (18-50)
[2021-04-04] MEDS: AZITHROMYCIN INJ 500 MG in SODIUM CHLORIDE 0.9% 250 ML IV SCH (17:42)
[2021-04-04 20:14] LABS: Folate 9.45 NG/ML (5.38-24.0)
[2021-04-04] MEDS: SPIRONOLACTONE 50 MG TABLET PO SCH (23:46)
[2021-04-04] MEDS: FLUTICASONE 50 MCG NASAL SPRAY 16 GM BOTTLE BOTH NARES SCH (23:47)
[2021-04-04] MEDS: FUROSEMIDE 40 MG TABLET PO SCH (23:48)
[2021-04-04] MEDS: RIFAXIMIN 550 MG TABLET PO SCH (23:48)
[2021-04-05 06:47] LABS: Basophils % 1.1 % (0.0-0.8); Eosinophils # 0.2 10*3/uL (0.0-0.87); Eosinophils % 6.4 % (0.00-10.9); Hematocrit 21.2 VOL% (35.7-47.0); Hemoglobin 6.7 GM/DL (12.0-16.0); Immature Granulocytes % 0.4 %; Immature Granulocytes Absolute 0.01 #; Lymphocytes # 0.8 10*3/uL (1.4-4.0); Lymphocytes % 29.4 % (21.3-54.2); Mean Corpuscular HGB Conc 31.6 GM/DL (32-36); Mean Corpuscular Volume 116.5 FL (87-102); Mean Platelet Volume 11.6 FL (9.6-12.0); Monocytes % 7.8 % (1.7-12.7); Neutrophils % 54.9 % (38.7-73.9); Platelet Count 60 T/CUMM (130-400); Red Blood Count 1.82 MC/CUMM (3.8-5.5); Red Cell Distribution Width 16.5 % (9.3-17.3); White Blood Count 2.8 T/CUMM (4-12)
[2021-04-05 07:03] LABS: Albumin 1.5 G/DL (3.4-5.0); Bilirubin,Total 2.9 MG/DL (0.20-1.00); Calcium 7.8 MG/DL (8.5-10.1); Osmolality,Calculated 295.6 MOS/KG (273-304); Potassium 3.4 MMOL/L (3.5-5.1); Total Protein 4.7 G/DL (6.4-8.2)
[2021-04-05 07:10] LABS: Eosinophils 3 % (0-10); Lymphocytes 31 % (20-55); Segmented Neutrophils 59 % (50-85); Total Cells Counted 100
[2021-04-05 07:11] LABS: Hypochromia 1+; Microcytosis 1+; Platelet Estimate Decreased
[2021-04-05] MEDS: INSULIN LISPRO 100 UNIT/ML SUBCUT SCH ×4 (08:21→21:06)
[2021-04-05] MEDS: SPIRONOLACTONE 50 MG TABLET PO SCH ×2 (08:31→21:06)
[2021-04-05] MEDS: LACTULOSE 20 GM/30 ML UDCUP PO SCH ×4 (08:31→21:07)
[2021-04-05] MEDS: FUROSEMIDE 40 MG TABLET PO SCH ×2 (08:31→21:07)
[2021-04-05] MEDS: FLUTICASONE 50 MCG NASAL SPRAY 16 GM BOTTLE BOTH NARES SCH ×2 (08:31→21:07)
[2021-04-05] MEDS: PANTOPRAZOLE 40 MG TABLET PO SCH (08:31)
[2021-04-05] MEDS: RIFAXIMIN 550 MG TABLET PO SCH ×2 (08:31→21:07)
[2021-04-05] MEDS ORDERED: INFLUENZA VIRUS VACCINE 0.5 ML SYRINGE IM ONE (09:00)
[2021-04-05] MEDS: cefTRIAXone 1,000 MG in SODIUM CHLORIDE 0.9% 100 ML IV SCH (16:17)
[2021-04-05] MEDS: AZITHROMYCIN INJ 500 MG in SODIUM CHLORIDE 0.9% 250 ML IV SCH (17:25)
[2021-04-06 06:42] LABS: Basophils % 0.9 % (0.0-0.8); Eosinophils # 0.2 10*3/uL (0.0-0.87); Eosinophils % 5.3 % (0.00-10.9); Hematocrit 21.4 VOL% (35.7-47.0); Hemoglobin 6.8 GM/DL (12.0-16.0); Immature Granulocytes % 0.9 %; Immature Granulocytes Absolute 0.03 #; Lymphocytes # 0.9 10*3/uL (1.4-4.0); Lymphocytes % 27.2 % (21.3-54.2); Mean Corpuscular HGB Conc 31.8 GM/DL (32-36); Mean Corpuscular Volume 116.9 FL (87-102); Mean Platelet Volume 10.5 FL (9.6-12.0); Monocytes % 7.8 % (1.7-12.7); Neutrophils % 57.9 % (38.7-73.9); Platelet Count 57 T/CUMM (130-400); Red Blood Count 1.83 MC/CUMM (3.8-5.5); Red Cell Distribution Width 16.5 % (9.3-17.3); White Blood Count 3.2 T/CUMM (4-12)
[2021-04-06 07:00] LABS: Calcium 8.2 MG/DL (8.5-10.1); Osmolality,Calculated 288.4 MOS/KG (273-304); Potassium 3.5 MMOL/L (3.5-5.1)
[2021-04-06 07:15] LABS: Band Neutrophils 3 % (0-10); Eosinophils 5 % (0-10); Lymphocytes 27 % (20-55); Segmented Neutrophils 59 % (50-85); Total Cells Counted 100
[2021-04-06 07:16] LABS: Anisocytosis 1+; Ovalocytes Slight; Platelet Estimate Decreased
[2021-04-06 07:17] LABS: Macrocytosis 1+
[2021-04-06] MEDS: FUROSEMIDE 40 MG TABLET PO SCH ×2 (08:47→20:04)
[2021-04-06] MEDS: RIFAXIMIN 550 MG TABLET PO SCH ×2 (08:47→20:03)
[2021-04-06] MEDS: INSULIN LISPRO 100 UNIT/ML SUBCUT SCH ×4 (08:48→21:13)
[2021-04-06] MEDS: SPIRONOLACTONE 50 MG TABLET PO SCH ×2 (08:48→20:04)
[2021-04-06] MEDS: PANTOPRAZOLE 40 MG TABLET PO SCH (08:48)
[2021-04-06] MEDS: LACTULOSE 20 GM/30 ML UDCUP PO SCH ×4 (08:48→20:03)
[2021-04-06] MEDS: FLUTICASONE 50 MCG NASAL SPRAY 16 GM BOTTLE BOTH NARES SCH ×2 (08:50→20:05)
[2021-04-06] MEDS: INSULIN GLARGINE 100 UNIT/ML SUBCUT SCH (10:20)
[2021-04-06] MEDS: cefTRIAXone 1,000 MG in SODIUM CHLORIDE 0.9% 100 ML IV SCH (16:10)
[2021-04-06] MEDS: AZITHROMYCIN INJ 500 MG in SODIUM CHLORIDE 0.9% 250 ML IV SCH (16:25)
[2021-04-06] MEDS: ONDANSETRON 4 MG/2 ML VIAL IV PRN (21:18)
[2021-04-07 06:51] LABS: Basophils % 0.3 % (0.0-0.8); Eosinophils # 0.2 10*3/uL (0.0-0.87); Eosinophils % 2.4 % (0.00-10.9); Hematocrit 23.6 VOL% (35.7-47.0); Hemoglobin 7.5 GM/DL (12.0-16.0); Immature Granulocytes % 0.4 %; Immature Granulocytes Absolute 0.03 #; Lymphocytes # 0.6 10*3/uL (1.4-4.0); Lymphocytes % 8.4 % (21.3-54.2); Mean Corpuscular HGB Conc 31.8 GM/DL (32-36); Mean Corpuscular Volume 118.6 FL (87-102); Mean Platelet Volume 11.5 FL (9.6-12.0); Monocytes % 5.7 % (1.7-12.7); NRBC # 0.03 10*3/uL; Neutrophils % 82.8 % (38.7-73.9); Platelet Count 52 T/CUMM (130-400); Red Blood Count 1.99 MC/CUMM (3.8-5.5); Red Cell Distribution Width 16.6 % (9.3-17.3); White Blood Count 6.8 T/CUMM (4-12)
[2021-04-07 07:15] LABS: Osmolality,Calculated 290.1 MOS/KG (273-304); Potassium 3.4 MMOL/L (3.5-5.1)
[2021-04-07 08:24] LABS: Anisocytosis 2+; Band Neutrophils 34 % (0-10); Eosinophils 1 % (0-10); Lymphocytes 6 % (20-55); Nucleated Red Blood Cells 1 (0-5); Platelet Estimate Decreased; Segmented Neutrophils 55 % (50-85); Total Cells Counted 100
[2021-04-07 08:25] LABS: Macrocytosis 2+; Ovalocytes Few; Tear Drop Cells Few
[2021-04-07] MEDS: INSULIN GLARGINE 100 UNIT/ML SUBCUT SCH (08:59)
[2021-04-07] MEDS: INSULIN LISPRO 100 UNIT/ML SUBCUT SCH ×4 (08:59→21:22)
[2021-04-07] MEDS: PANTOPRAZOLE 40 MG TABLET PO SCH (09:00)
[2021-04-07] MEDS: FLUTICASONE 50 MCG NASAL SPRAY 16 GM BOTTLE BOTH NARES SCH ×2 (09:00→21:21)
[2021-04-07] MEDS: FUROSEMIDE 40 MG TABLET PO SCH ×2 (09:00→21:20)
[2021-04-07] MEDS: LACTULOSE 20 GM/30 ML UDCUP PO SCH ×4 (09:00→21:21)
[2021-04-07] MEDS: SPIRONOLACTONE 50 MG TABLET PO SCH ×2 (09:00→21:20)
[2021-04-07] MEDS: RIFAXIMIN 550 MG TABLET PO SCH ×2 (09:02→21:20)
[2021-04-07] MEDS: ONDANSETRON 4 MG/2 ML VIAL IV PRN (09:11)
[2021-04-07] MEDS: LEVOFLOXACIN INJ 500 MG/100 ML PREMIX IV SCH (15:12)
[2021-04-07] MEDS: PROCHLORPERAZINE 10 MG/2 ML VIAL IV SCH ×2 (17:04→21:20)
[2021-04-08 06:33] LABS: Basophils % 0.3 % (0.0-0.8); Eosinophils # 0.3 10*3/uL (0.0-0.87); Eosinophils % 5.4 % (0.00-10.9); Hematocrit 22.5 VOL% (35.7-47.0); Hemoglobin 7.2 GM/DL (12.0-16.0); Immature Granulocytes % 0.6 %; Immature Granulocytes Absolute 0.04 #; Lymphocytes # 1.3 10*3/uL (1.4-4.0); Lymphocytes % 20.1 % (21.3-54.2); Mean Corpuscular Volume 116.6 FL (87-102); Mean Platelet Volume 10.5 FL (9.6-12.0); Monocytes % 6.7 % (1.7-12.7); NRBC # 0.03 10*3/uL; Neutrophils % 66.9 % (38.7-73.9); Platelet Count 60 T/CUMM (130-400); Red Blood Count 1.93 MC/CUMM (3.8-5.5); Red Cell Distribution Width 17.2 % (9.3-17.3); White Blood Count 6.3 T/CUMM (4-12)
[2021-04-08 06:56] LABS: Calcium 7.4 MG/DL (8.5-10.1); Osmolality,Calculated 282.8 MOS/KG (273-304); Potassium 3.3 MMOL/L (3.5-5.1)
[2021-04-08] MEDS: FLUTICASONE 50 MCG NASAL SPRAY 16 GM BOTTLE BOTH NARES SCH ×2 (08:19→21:43)
[2021-04-08] MEDS: PANTOPRAZOLE 40 MG TABLET PO SCH (08:20)
[2021-04-08] MEDS: FUROSEMIDE 40 MG TABLET PO SCH ×2 (08:20→21:42)
[2021-04-08] MEDS: LACTULOSE 20 GM/30 ML UDCUP PO SCH ×4 (08:20→21:42)
[2021-04-08] MEDS: PROCHLORPERAZINE 10 MG/2 ML VIAL IV SCH ×3 (08:20→21:43)
[2021-04-08] MEDS: RIFAXIMIN 550 MG TABLET PO SCH ×2 (08:20→21:42)
[2021-04-08] MEDS: SPIRONOLACTONE 50 MG TABLET PO SCH ×2 (08:20→21:42)
[2021-04-08] MEDS: INSULIN LISPRO 100 UNIT/ML SUBCUT SCH ×4 (08:21→21:44)
[2021-04-08] MEDS: INSULIN GLARGINE 100 UNIT/ML SUBCUT SCH (08:21)
[2021-04-08] MEDS: LEVOFLOXACIN INJ 500 MG/100 ML PREMIX IV SCH (16:08)
[2021-04-08] MEDS: ACETAMINOPHEN 325 MG TABLET PO PRN (21:43)
[2021-04-09 06:34] LABS: Basophils % 0.5 % (0.0-0.8); Eosinophils # 0.2 10*3/uL (0.0-0.87); Eosinophils % 3.7 % (0.00-10.9); Hematocrit 18.3 VOL% (35.7-47.0); Immature Granulocytes % 0.9 %; Immature Granulocytes Absolute 0.04 #; Lymphocytes # 0.9 10*3/uL (1.4-4.0); Lymphocytes % 20.8 % (21.3-54.2); Mean Corpuscular HGB Conc 32.8 GM/DL (32-36); Mean Corpuscular Volume 116.6 FL (87-102); Mean Platelet Volume 12.1 FL (9.6-12.0); Monocytes % 9.1 % (1.7-12.7); NRBC # 0.03 10*3/uL; Red Blood Count 1.57 MC/CUMM (3.8-5.5); Red Cell Distribution Width 17.5 % (9.3-17.3)
[2021-04-09 06:36] LABS: Platelet Count 46 T/CUMM (130-400); White Blood Count 4.3 T/CUMM (4-12)
[2021-04-09 06:45] LABS: Hypochromia 2+; Microcytosis 1+; Platelet Estimate Decreased
[2021-04-09 07:13] LABS: Calcium 7.2 MG/DL (8.5-10.1); Osmolality,Calculated 284.5 MOS/KG (273-304); Potassium 2.9 MMOL/L (3.5-5.1)
[2021-04-09] MEDS: FUROSEMIDE 40 MG TABLET PO SCH ×2 (08:24→21:07)
[2021-04-09] MEDS: PROCHLORPERAZINE 10 MG/2 ML VIAL IV SCH ×3 (08:24→21:07)
[2021-04-09] MEDS: FLUTICASONE 50 MCG NASAL SPRAY 16 GM BOTTLE BOTH NARES SCH ×2 (08:24→21:07)
[2021-04-09] MEDS: SPIRONOLACTONE 50 MG TABLET PO SCH ×2 (08:25→21:07)
[2021-04-09] MEDS: INSULIN GLARGINE 100 UNIT/ML SUBCUT SCH (08:25)
[2021-04-09] MEDS: INSULIN LISPRO 100 UNIT/ML SUBCUT SCH ×4 (08:25→21:07)
[2021-04-09] MEDS: RIFAXIMIN 550 MG TABLET PO SCH ×2 (08:25→21:07)
[2021-04-09] MEDS: LACTULOSE 20 GM/30 ML UDCUP PO SCH ×4 (08:25→21:06)
[2021-04-09] MEDS: PANTOPRAZOLE 40 MG TABLET PO SCH ×2 (08:25→21:07)
[2021-04-09] MEDS ORDERED: POTASSIUM CHLORIDE 20 MEQ TABLET PO ONE (10:16)
[2021-04-09] MEDS ORDERED: SODIUM CHLORIDE 0.9% 1,000 ML IV PRN (13:00)
[2021-04-09 16:12] LABS: Hematocrit 21.7 VOL% (35.7-47.0)
[2021-04-09] MEDS: LEVOFLOXACIN INJ 500 MG/100 ML PREMIX IV SCH ×2 (16:22→17:49)
[2021-04-09] MEDS: ACETAMINOPHEN 325 MG TABLET PO PRN (17:00)
[2021-04-10 05:44] LABS: Basophils % 0.4 % (0.0-0.8); Eosinophils # 0.2 10*3/uL (0.0-0.87); Eosinophils % 2.9 % (0.00-10.9); Hematocrit 19.4 VOL% (35.7-47.0); Lymphocytes # 0.7 10*3/uL (1.4-4.0); Lymphocytes % 14.5 % (21.3-54.2); Mean Corpuscular Volume 117.6 FL (87-102); Mean Platelet Volume 11.7 FL (9.6-12.0); Monocytes % 8.6 % (1.7-12.7); NRBC # 0.03 10*3/uL; Neutrophils % 71.6 % (38.7-73.9); Red Blood Count 1.65 MC/CUMM (3.8-5.5); Red Cell Distribution Width 18.3 % (9.3-17.3)
[2021-04-10 05:46] LABS: Platelet Count 43 T/CUMM (130-400); White Blood Count 5.1 T/CUMM (4-12)
[2021-04-10 05:48] LABS: Hemoglobin 6.4 GM/DL (12.0-16.0)
[2021-04-10 06:13] LABS: Calcium 8.1 MG/DL (8.5-10.1); Osmolality,Calculated 291.4 MOS/KG (273-304); Potassium 3.8 MMOL/L (3.5-5.1)
[2021-04-10] MEDS: POTASSIUM CHLORIDE 20 MEQ TABLET PO SCH (10:11)
[2021-04-10] MEDS: LACTULOSE 20 GM/30 ML UDCUP PO SCH ×4 (10:11→22:26)
[2021-04-10] MEDS: PANTOPRAZOLE 40 MG TABLET PO SCH ×2 (10:11→22:33)
[2021-04-10] MEDS: RIFAXIMIN 550 MG TABLET PO SCH ×2 (10:11→22:33)
[2021-04-10] MEDS: FUROSEMIDE 40 MG TABLET PO SCH ×2 (10:11→22:32)
[2021-04-10] MEDS: SPIRONOLACTONE 50 MG TABLET PO SCH ×2 (10:11→22:32)
[2021-04-10] MEDS: INSULIN GLARGINE 100 UNIT/ML SUBCUT SCH (10:12)
[2021-04-10] MEDS: INSULIN LISPRO 100 UNIT/ML SUBCUT SCH ×4 (10:12→22:31)
[2021-04-10] MEDS: FLUTICASONE 50 MCG NASAL SPRAY 16 GM BOTTLE BOTH NARES SCH ×2 (10:15→22:25)
[2021-04-10] MEDS: PROCHLORPERAZINE 10 MG/2 ML VIAL IV SCH ×3 (10:17→22:26)
[2021-04-10 10:28] LABS: INR 1.1; PT Patient Result 11.9 SECS (10.5-12.0)
[2021-04-10] MEDS: LEVOFLOXACIN INJ 500 MG/100 ML PREMIX IV SCH (16:19)
[2021-04-11 05:15] LABS: Basophils % 0.2 % (0.0-0.8); Eosinophils # 0.1 10*3/uL (0.0-0.87); Hematocrit 20.7 VOL% (35.7-47.0); Immature Granulocytes % 2.8 %; Immature Granulocytes Absolute 0.14 #; Lymphocytes # 0.9 10*3/uL (1.4-4.0); Mean Corpuscular HGB Conc 30.9 GM/DL (32-36); Mean Corpuscular Volume 120.3 FL (87-102); Mean Platelet Volume 13.2 FL (9.6-12.0); Monocytes % 9.2 % (1.7-12.7); NRBC # 0.05 10*3/uL; Neutrophils % 68.8 % (38.7-73.9); Platelet Count 51 T/CUMM (130-400); Red Blood Count 1.72 MC/CUMM (3.8-5.5); Red Cell Distribution Width 18.7 % (9.3-17.3)
[2021-04-11 05:21] LABS: Hemoglobin 6.4 GM/DL (12.0-16.0)
[2021-04-11 05:34] LABS: Calcium 8.1 MG/DL (8.5-10.1); Osmolality,Calculated 288.5 MOS/KG (273-304); Potassium 3.9 MMOL/L (3.5-5.1)
[2021-04-11 05:49] LABS: Anisocytosis 1+; Band Neutrophils 2 % (0-10); Eosinophils 1 % (0-10); Hypochromia Slight; Lymphocytes 17 % (20-55); Microcytosis 1+; Ovalocytes Few; Polychromasia Slight; Segmented Neutrophils 76 % (50-85); Total Cells Counted 100
[2021-04-11 05:50] LABS: Platelet Estimate Decreased; Tear Drop Cells Slight
[2021-04-11] MEDS: INSULIN LISPRO 100 UNIT/ML SUBCUT SCH ×4 (09:54→20:32)
[2021-04-11] MEDS: LACTATED RINGERS 1,000 ML IV SCH (09:54)
[2021-04-11] MEDS: FUROSEMIDE 40 MG TABLET PO SCH ×2 (09:55→20:31)
[2021-04-11] MEDS: RIFAXIMIN 550 MG TABLET PO SCH ×2 (09:55→20:31)
[2021-04-11] MEDS: POTASSIUM CHLORIDE 20 MEQ TABLET PO SCH (09:55)
[2021-04-11] MEDS: PANTOPRAZOLE 40 MG TABLET PO SCH ×2 (09:55→20:31)
[2021-04-11] MEDS: PROCHLORPERAZINE 10 MG/2 ML VIAL IV SCH ×3 (09:56→20:32)
[2021-04-11] MEDS: LACTULOSE 20 GM/30 ML UDCUP PO SCH ×4 (09:57→20:31)
[2021-04-11] MEDS: INSULIN GLARGINE 100 UNIT/ML SUBCUT SCH (09:57)
[2021-04-11] MEDS: SPIRONOLACTONE 50 MG TABLET PO SCH ×2 (09:57→20:31)
[2021-04-11] MEDS: FLUTICASONE 50 MCG NASAL SPRAY 16 GM BOTTLE BOTH NARES SCH ×2 (09:58→20:32)
[2021-04-11] MEDS ORDERED: EPOETIN ALFA-EPBX 3,000 UNIT/ML VIAL IV ONE (14:00)
[2021-04-11] MEDS: LEVOFLOXACIN INJ 500 MG/100 ML PREMIX IV SCH (17:24)
[2021-04-12 07:08] LABS: Basophils % 0.3 % (0.0-0.8); Eosinophils # 0.1 10*3/uL (0.0-0.87); Eosinophils % 3.3 % (0.00-10.9); Hematocrit 18.7 VOL% (35.7-47.0); Immature Granulocytes % 1.7 %; Immature Granulocytes Absolute 0.06 #; Lymphocytes # 0.8 10*3/uL (1.4-4.0); Lymphocytes % 21.9 % (21.3-54.2); Mean Corpuscular HGB Conc 32.1 GM/DL (32-36); Mean Corpuscular Volume 117.6 FL (87-102); Mean Platelet Volume 13.6 FL (9.6-12.0); Monocytes % 9.4 % (1.7-12.7); NRBC # 0.02 10*3/uL; Neutrophils % 63.4 % (38.7-73.9); Red Blood Count 1.59 MC/CUMM (3.8-5.5); Red Cell Distribution Width 18.6 % (9.3-17.3); White Blood Count 3.6 T/CUMM (4-12)
[2021-04-12 07:20] LABS: Platelet Count 38 T/CUMM (130-400)
[2021-04-12 07:31] LABS: Hypochromia 2+; Microcytosis 1+; Platelet Estimate Decreased
[2021-04-12] MEDS: LACTULOSE 20 GM/30 ML UDCUP PO SCH ×4 (10:51→23:05)
[2021-04-12] MEDS: SPIRONOLACTONE 50 MG TABLET PO SCH ×2 (10:52→23:05)
[2021-04-12] MEDS: POTASSIUM CHLORIDE 20 MEQ TABLET PO SCH (10:52)
[2021-04-12] MEDS: PANTOPRAZOLE 40 MG TABLET PO SCH ×2 (10:52→23:05)
[2021-04-12] MEDS: RIFAXIMIN 550 MG TABLET PO SCH ×2 (10:52→23:05)
[2021-04-12] MEDS: FUROSEMIDE 40 MG TABLET PO SCH ×2 (10:52→23:05)
[2021-04-12] MEDS: INSULIN GLARGINE 100 UNIT/ML SUBCUT SCH ×2 (10:54→23:05)
[2021-04-12] MEDS: PROCHLORPERAZINE 10 MG/2 ML VIAL IV SCH ×3 (11:01→23:07)
[2021-04-12] MEDS ORDERED: SODIUM CHLORIDE 0.9% 1,000 ML IV PRN ×5 (11:16→13:49)
[2021-04-12] MEDS: ACETAMINOPHEN 500 MG TABLET PO SCH ×3 (12:00→23:58)
[2021-04-12] MEDS: INSULIN LISPRO 100 UNIT/ML SUBCUT SCH ×3 (12:35→23:06)
[2021-04-12] MEDS: FLUTICASONE 50 MCG NASAL SPRAY 16 GM BOTTLE BOTH NARES SCH ×2 (17:19→23:07)
[2021-04-12] MEDS ORDERED: INSULIN REGULAR 100 UNIT/ML SUBCUT ONE (18:38)
[2021-04-13] MEDS ORDERED: INSULIN REGULAR 100 UNIT/ML SUBCUT ONE (02:11)
[2021-04-13] MEDS ORDERED: INSULIN REGULAR 100 UNIT/ML ONE (02:13)
[2021-04-13 02:47] LABS: Albumin 1.5 G/DL (3.4-5.0); Bilirubin,Total 2.3 MG/DL (0.20-1.00); Calcium 8.5 MG/DL (8.5-10.1); Osmolality,Calculated 287.7 MOS/KG (273-304); Potassium 3.6 MMOL/L (3.5-5.1)
[2021-04-13 03:13] LABS: Basophils % 0.5 % (0.0-0.8); Eosinophils # 0.1 10*3/uL (0.0-0.87); Eosinophils % 2.7 % (0.00-10.9); Hematocrit 24.4 VOL% (35.7-47.0); Immature Granulocytes % 2.2 %; Immature Granulocytes Absolute 0.08 #; Lymphocytes # 0.8 10*3/uL (1.4-4.0); Mean Corpuscular HGB Conc 32.4 GM/DL (32-36); Mean Corpuscular Volume 111.9 FL (87-102); Mean Platelet Volume 13.3 FL (9.6-12.0); Monocytes % 8.5 % (1.7-12.7); Neutrophils % 63.1 % (38.7-73.9); Platelet Count 40 T/CUMM (130-400); Red Cell Distribution Width 19.1 % (9.3-17.3); White Blood Count 3.7 T/CUMM (4-12)
[2021-04-13 03:15] LABS: Red Blood Count 2.18 MC/CUMM (3.8-5.5)
[2021-04-13 03:16] LABS: Hemoglobin 7.9 GM/DL (12.0-16.0)
[2021-04-13 03:49] LABS: Anisocytosis 1+; Hypochromia Slight; Microcytosis 1+; Ovalocytes Slight; Platelet Estimate Decreased; Polychromasia Slight
[2021-04-13] MEDS: ACETAMINOPHEN 500 MG TABLET PO SCH ×3 (05:52→18:35)
[2021-04-13] MEDS ORDERED: LACTATED RINGERS 1,000 ML IV SCH (08:00)
[2021-04-13] MEDS ORDERED: SODIUM CHLORIDE 0.9% 1,000 ML IV PRN (08:27)
[2021-04-13] MEDS: FLUTICASONE 50 MCG NASAL SPRAY 16 GM BOTTLE BOTH NARES SCH ×2 (08:30→21:23)
[2021-04-13] MEDS: INSULIN LISPRO 100 UNIT/ML SUBCUT SCH ×5 (08:30→21:58)
[2021-04-13] MEDS: PROCHLORPERAZINE 10 MG/2 ML VIAL IV SCH ×3 (09:00→21:21)
[2021-04-13] MEDS ORDERED: ONDANSETRON 4 MG/2 ML VIAL ONE (11:54)
[2021-04-13] MEDS ORDERED: ETOMIDATE 20 MG/10 ML VIAL IV ONE (11:54)
[2021-04-13] MEDS ORDERED: propofoL 200 MG/20 ML VIAL IV ONE (11:54)
[2021-04-13] MEDS ORDERED: LIDOCAINE 2% 5 ML VIAL ONE (11:54)
[2021-04-13] MEDS ORDERED: ALBUTEROL/IPRATROPIUM 3 ML NEB RESP TX STA (12:33)
[2021-04-13] MEDS: LACTULOSE 20 GM/30 ML UDCUP PO SCH ×4 (16:37→21:15)
[2021-04-13] MEDS: SPIRONOLACTONE 50 MG TABLET PO SCH ×2 (16:38→21:16)
[2021-04-13] MEDS: predniSONE 20 MG TABLET PO SCH (16:39)
[2021-04-13] MEDS: RIFAXIMIN 550 MG TABLET PO SCH ×2 (16:39→21:16)
[2021-04-13] MEDS: PANTOPRAZOLE 40 MG TABLET PO SCH ×2 (16:39→21:16)
[2021-04-13] MEDS: POTASSIUM CHLORIDE 20 MEQ TABLET PO SCH (16:41)
[2021-04-13] MEDS: INSULIN GLARGINE 100 UNIT/ML SUBCUT SCH ×2 (16:41→21:16)
[2021-04-13] MEDS: FUROSEMIDE 40 MG TABLET PO SCH (16:42)
[2021-04-14] MEDS: ACETAMINOPHEN 500 MG TABLET PO SCH ×3 (00:31→14:00)
[2021-04-14] MEDS: INSULIN LISPRO 100 UNIT/ML SUBCUT SCH ×4 (01:56→14:00)
[2021-04-14] MEDS: LACTATED RINGERS 1,000 ML IV SCH (01:57)
[2021-04-14] MEDS: diphenhydrAMINE 50 MG/1 ML VIAL IV SCH (01:57)
[2021-04-14] MEDS: methylPREDNISolone SOD SUC 40 MG/1 ML VIAL IV SCH (01:58)
[2021-04-14 05:12] LABS: Basophils % 0.5 % (0.0-0.8); Eosinophils # 0.3 10*3/uL (0.0-0.87); Eosinophils % 6.2 % (0.00-10.9); Hematocrit 23.4 VOL% (35.7-47.0); Hemoglobin 7.5 GM/DL (12.0-16.0); Immature Granulocytes Absolute 0.08 #; Lymphocytes # 0.8 10*3/uL (1.4-4.0); Lymphocytes % 19.4 % (21.3-54.2); Mean Corpuscular HGB Conc 32.1 GM/DL (32-36); Mean Corpuscular Volume 111.4 FL (87-102); Mean Platelet Volume 12.5 FL (9.6-12.0); Monocytes % 10.7 % (1.7-12.7); Neutrophils % 61.2 % (38.7-73.9); Platelet Count 54 T/CUMM (130-400); Red Cell Distribution Width 19.4 % (9.3-17.3)
[2021-04-14 05:44] LABS: Albumin 1.4 G/DL (3.4-5.0); Bilirubin,Total 1.5 MG/DL (0.20-1.00); Calcium 8.1 MG/DL (8.5-10.1); Osmolality,Calculated 276.1 MOS/KG (273-304); Potassium 3.8 MMOL/L (3.5-5.1); Total Protein 4.6 G/DL (6.4-8.2)
[2021-04-14 06:02] LABS: Hypochromia 1+; Macrocytosis 1+
[2021-04-14 06:03] LABS: Ovalocytes Slight; Platelet Estimate Decreased; Polychromasia Slight
[2021-04-14 07:33] VITALS: BP 113/43
[2021-04-14] MEDS ORDERED: FUROSEMIDE 40 MG TABLET PO SCH (09:00)
[2021-04-14] MEDS ORDERED: POTASSIUM CHLORIDE 20 MEQ TABLET PO SCH (09:00)
[2021-04-14] MEDS: RIFAXIMIN 550 MG TABLET PO SCH (10:35)
[2021-04-14] MEDS: SPIRONOLACTONE 50 MG TABLET PO SCH (10:36)
[2021-04-14] MEDS: predniSONE 20 MG TABLET PO SCH (10:36)
[2021-04-14] MEDS: PANTOPRAZOLE 40 MG TABLET PO SCH (10:36)
[2021-04-14] MEDS: PROCHLORPERAZINE 10 MG/2 ML VIAL IV SCH ×2 (10:39→16:15)
[2021-04-14] MEDS: LACTULOSE 20 GM/30 ML UDCUP PO SCH ×2 (10:40→14:12)
[2021-04-14] MEDS: FLUTICASONE 50 MCG NASAL SPRAY 16 GM BOTTLE BOTH NARES SCH (10:40)
[2021-04-14] MEDS: INSULIN GLARGINE 100 UNIT/ML SUBCUT SCH (10:42)
== END 2021-04-14 18:10 | disposition home health service (06) | DRG 689 ==
LOC: EDUNIT# → EDBD → N.ED 13:44 → SUATTDRO 15:25 → N.EDINP 15:25 → N.3E 21:31
PROVIDERS: ADMIT Internal Medicine; ATTEND Internal Medicine

== ENCOUNTER 2021-05-10 11:49 | Inpatient (IN) ==
[2021-05-10] MEDS ORDERED: SODIUM CHLORIDE 0.9% 1,000 ML IV STA (12:52)
[2021-05-10 13:13] LABS: Bilirubin,Total 3.3 MG/DL (0.20-1.00); Osmolality,Calculated 287.1 MOS/KG (273-304); Potassium 3.7 MMOL/L (3.5-5.1); Total Protein 5.3 G/DL (6.4-8.2)
[2021-05-10 14:23] LABS: Bacteria,Urine Occasional /HPF (Few); Mucus,Urine Occasional /LPF (Occasional); RBC,Urine 6 /HPF (0-4); Squamous Epithelial Cell,Urine Occasional /HPF (0-10)
[2021-05-10 14:24] LABS: Urine Appearance Clear (Clear); Urine Color Light Yellow (Yellow); Urine pH 6.5 (4.5-8.0)
[2021-05-10 14:25] LABS: Bilirubin,Urine Negative (Negative); Blood, Urine Moderate mg/dL (Negative); Glucose,Urine (UA) Negative (Negative); Ketones,Urine Negative (Negative); Nitrite,Urine Negative (Negative); Protein,Urine Negative; Urine Specific Gravity 1.015 (1.001-1.035); Urine Urobilinogen < 2.0 EU/DL (<2.0)
[2021-05-10 15:18] LABS: Basophils % 0.3 % (0.0-0.8); Eosinophils # 0.1 10*3/uL (0.0-0.87); Eosinophils % 2.6 % (0.00-10.9); Hematocrit 20.6 VOL% (35.7-47.0); Hemoglobin 6.8 GM/DL (12.0-16.0); Immature Granulocytes % 0.3 %; Immature Granulocytes Absolute 0.01 #; Lymphocytes # 0.9 10*3/uL (1.4-4.0); Lymphocytes % 29.5 % (21.3-54.2); Mean Corpuscular Volume 112.6 FL (87-102); Mean Platelet Volume 12.5 FL (9.6-12.0); Monocytes % 5.6 % (1.7-12.7); Neutrophils % 61.7 % (38.7-73.9); Platelet Count 50 T/CUMM (130-400); Red Blood Count 1.83 MC/CUMM (3.8-5.5); Red Cell Distribution Width 18.7 % (9.3-17.3)
[2021-05-10 15:34] LABS: INR 1.1; PT Patient Result 12.3 SECS (10.5-12.0); Partial Thromboplastin Time 25.9 SECS (23.8-32.1)
[2021-05-10] MEDS ORDERED: GLUCAGON 1 MG VIAL IM PRN (15:38)
[2021-05-10 15:39] LABS: Anisocytosis 1+; Eosinophils 2 % (0-10); Hypochromia 1+; Lymphocytes 29 % (20-55); Platelet Estimate Decreased; Polychromasia 1+; Segmented Neutrophils 64 % (50-85); Total Cells Counted 100
[2021-05-10] MEDS ORDERED: SODIUM CHLORIDE 0.9% 1,000 ML IV PRN (15:42)
[2021-05-10] MEDS ORDERED: LACTULOSE 20 GM/30 ML UDCUP PO SCH (15:42)
[2021-05-10] MEDS ORDERED: FUROSEMIDE 40 MG/4 ML VIAL IV PRN (15:42)
[2021-05-10] MEDS ORDERED: DEXTROSE 10% 250 ML BAG IV PRN (15:46)
[2021-05-10] MEDS: LACTULOSE 20 GM/30 ML UDCUP PO SCH ×2 (16:20→22:28)
[2021-05-10] MEDS: INSULIN LISPRO 100 UNIT/ML SUBCUT SCH ×2 (16:20→22:28)
[2021-05-10] MEDS: RIFAXIMIN 550 MG TABLET PO SCH (18:14)
[2021-05-10] MEDS ORDERED: INFLUENZA VIRUS VACCINE 0.5 ML SYRINGE IM ONE (18:43)
[2021-05-10] MEDS: AMITRIPTYLINE 25 MG TABLET PO SCH (22:27)
[2021-05-10] MEDS ORDERED: ACETAMINOPHEN 325 MG TABLET PO PRN (22:57)
[2021-05-10] MEDS: ONDANSETRON 4 MG/2 ML VIAL IV PRN (23:16)
[2021-05-11] MEDS: LACTULOSE 20 GM/30 ML UDCUP PO SCH ×4 (04:42→21:05)
[2021-05-11 06:34] LABS: Basophils % 0.7 % (0.0-0.8); Eosinophils # 0.1 10*3/uL (0.0-0.87); Eosinophils % 3.2 % (0.00-10.9); Hematocrit 21.5 VOL% (35.7-47.0); Hemoglobin 6.8 GM/DL (12.0-16.0); Immature Granulocytes % 0.4 %; Immature Granulocytes Absolute 0.01 #; Lymphocytes # 0.8 10*3/uL (1.4-4.0); Lymphocytes % 28.6 % (21.3-54.2); Mean Corpuscular HGB Conc 31.6 GM/DL (32-36); Mean Corpuscular Volume 114.4 FL (87-102); Mean Platelet Volume 11.9 FL (9.6-12.0); Monocytes % 5.7 % (1.7-12.7); Neutrophils % 61.4 % (38.7-73.9); Platelet Count 54 T/CUMM (130-400); Red Blood Count 1.88 MC/CUMM (3.8-5.5); Red Cell Distribution Width 19.2 % (9.3-17.3); White Blood Count 2.8 T/CUMM (4-12)
[2021-05-11 06:53] LABS: Albumin 1.5 G/DL (3.4-5.0); Bilirubin,Total 2.4 MG/DL (0.20-1.00); Calcium 7.9 MG/DL (8.5-10.1); Potassium 3.9 MMOL/L (3.5-5.1); Total Protein 4.6 G/DL (6.4-8.2)
[2021-05-11 06:56] LABS: Hypochromia 1+
[2021-05-11 06:57] LABS: Macrocytosis 1+; Platelet Estimate Decreased
[2021-05-11] MEDS: PANTOPRAZOLE 40 MG TABLET PO SCH (08:46)
[2021-05-11] MEDS: RIFAXIMIN 550 MG TABLET PO SCH ×2 (08:46→21:06)
[2021-05-11] MEDS: FUROSEMIDE 40 MG/4 ML VIAL IV SCH (08:47)
[2021-05-11] MEDS: INSULIN LISPRO 100 UNIT/ML SUBCUT SCH ×4 (08:48→21:06)
[2021-05-11] MEDS: AMITRIPTYLINE 25 MG TABLET PO SCH (21:06)
[2021-05-12] MEDS: LACTULOSE 20 GM/30 ML UDCUP PO SCH ×4 (03:39→21:45)
[2021-05-12 05:25] LABS: Basophils % 0.5 % (0.0-0.8); Eosinophils # 0.2 10*3/uL (0.0-0.87); Hematocrit 22.1 VOL% (35.7-47.0); Hemoglobin 6.9 GM/DL (12.0-16.0); Immature Granulocytes % 0.5 %; Immature Granulocytes Absolute 0.02 #; Lymphocytes % 25.5 % (21.3-54.2); Mean Corpuscular HGB Conc 31.2 GM/DL (32-36); Mean Corpuscular Volume 118.8 FL (87-102); Mean Platelet Volume 12.5 FL (9.6-12.0); Monocytes % 6.6 % (1.7-12.7); Neutrophils % 62.9 % (38.7-73.9); Platelet Count 50 T/CUMM (130-400); Red Blood Count 1.86 MC/CUMM (3.8-5.5); Red Cell Distribution Width 19.4 % (9.3-17.3); White Blood Count 3.8 T/CUMM (4-12)
[2021-05-12 05:49] LABS: Calcium 7.9 MG/DL (8.5-10.1); Osmolality,Calculated 298.3 MOS/KG (273-304); Potassium 3.9 MMOL/L (3.5-5.1)
[2021-05-12 06:06] LABS: Hypochromia 1+
[2021-05-12 06:07] LABS: Anisocytosis 1+; Macrocytosis 1+
[2021-05-12] MEDS: INSULIN LISPRO 100 UNIT/ML SUBCUT SCH ×5 (10:48→21:44)
[2021-05-12] MEDS: FUROSEMIDE 40 MG/4 ML VIAL IV SCH (10:49)
[2021-05-12] MEDS: RIFAXIMIN 550 MG TABLET PO SCH ×2 (10:49→21:45)
[2021-05-12] MEDS: PANTOPRAZOLE 40 MG TABLET PO SCH (10:50)
[2021-05-12] MEDS: AMITRIPTYLINE 25 MG TABLET PO SCH (21:45)
[2021-05-12] MEDS: ONDANSETRON 4 MG/2 ML VIAL IV PRN (21:54)
[2021-05-13] MEDS: LACTULOSE 20 GM/30 ML UDCUP PO SCH ×5 (04:48→23:48)
[2021-05-13] MEDS: ONDANSETRON 4 MG/2 ML VIAL IV PRN (05:11)
[2021-05-13 05:47] LABS: Basophils % 0.4 % (0.0-0.8); Eosinophils # 0.1 10*3/uL (0.0-0.87); Eosinophils % 2.9 % (0.00-10.9); Hematocrit 26.2 VOL% (35.7-47.0); Hemoglobin 8.4 GM/DL (12.0-16.0); Immature Granulocytes % 0.6 %; Immature Granulocytes Absolute 0.03 #; Lymphocytes # 0.8 10*3/uL (1.4-4.0); Lymphocytes % 17.1 % (21.3-54.2); Mean Corpuscular HGB Conc 32.1 GM/DL (32-36); Mean Corpuscular Volume 109.6 FL (87-102); Mean Platelet Volume 12.6 FL (9.6-12.0); Monocytes % 5.6 % (1.7-12.7); Neutrophils % 73.4 % (38.7-73.9); Platelet Count 42 T/CUMM (130-400); Red Blood Count 2.39 MC/CUMM (3.8-5.5); Red Cell Distribution Width 20.2 % (9.3-17.3); White Blood Count 4.8 T/CUMM (4-12)
[2021-05-13 05:57] LABS: Calcium 7.2 MG/DL (8.5-10.1); Osmolality,Calculated 284.8 MOS/KG (273-304); Potassium 3.8 MMOL/L (3.5-5.1)
[2021-05-13 06:14] LABS: Hypochromia 1+; Microcytosis Slight; Platelet Estimate Decreased
[2021-05-13] MEDS: INSULIN LISPRO 100 UNIT/ML SUBCUT SCH ×4 (09:24→20:45)
[2021-05-13] MEDS: RIFAXIMIN 550 MG TABLET PO SCH ×2 (09:27→20:42)
[2021-05-13] MEDS: FUROSEMIDE 40 MG/4 ML VIAL IV SCH (09:27)
[2021-05-13] MEDS: PANTOPRAZOLE 40 MG TABLET PO SCH (09:27)
[2021-05-13] MEDS: AMITRIPTYLINE 25 MG TABLET PO SCH (20:42)
[2021-05-14] MEDS: LACTULOSE 20 GM/30 ML UDCUP PO SCH ×4 (06:26→23:42)
[2021-05-14 06:32] LABS: Basophils % 0.8 % (0.0-0.8); Eosinophils # 0.2 10*3/uL (0.0-0.87); Eosinophils % 4.2 % (0.00-10.9); Hematocrit 25.1 VOL% (35.7-47.0); Hemoglobin 8.1 GM/DL (12.0-16.0); Immature Granulocytes % 0.6 %; Immature Granulocytes Absolute 0.02 #; Lymphocytes # 0.7 10*3/uL (1.4-4.0); Lymphocytes % 19.4 % (21.3-54.2); Mean Corpuscular HGB Conc 32.3 GM/DL (32-36); Mean Corpuscular Volume 109.1 FL (87-102); Mean Platelet Volume 11.9 FL (9.6-12.0); Monocytes % 7.6 % (1.7-12.7); Neutrophils % 67.4 % (38.7-73.9); Platelet Count 45 T/CUMM (130-400); Red Cell Distribution Width 21.5 % (9.3-17.3); White Blood Count 3.6 T/CUMM (4-12)
[2021-05-14 06:47] LABS: Calcium 7.4 MG/DL (8.5-10.1); Osmolality,Calculated 290.4 MOS/KG (273-304); Potassium 3.7 MMOL/L (3.5-5.1)
[2021-05-14 07:03] LABS: Hypochromia 1+; Macrocytosis 1+; Polychromasia Slight
[2021-05-14 07:04] LABS: Platelet Estimate Decreased
[2021-05-14] MEDS: INSULIN LISPRO 100 UNIT/ML SUBCUT SCH ×4 (10:05→20:49)
[2021-05-14] MEDS: PANTOPRAZOLE 40 MG TABLET PO SCH (10:06)
[2021-05-14] MEDS: FUROSEMIDE 40 MG/4 ML VIAL IV SCH (10:06)
[2021-05-14] MEDS: RIFAXIMIN 550 MG TABLET PO SCH ×2 (10:07→20:43)
[2021-05-14] MEDS: AMITRIPTYLINE 25 MG TABLET PO SCH (20:43)
[2021-05-15 05:06] LABS: Basophils % 0.6 % (0.0-0.8); Eosinophils # 0.1 10*3/uL (0.0-0.87); Eosinophils % 3.9 % (0.00-10.9); Hematocrit 24.5 VOL% (35.7-47.0); Hemoglobin 7.9 GM/DL (12.0-16.0); Immature Granulocytes % 0.6 %; Immature Granulocytes Absolute 0.02 #; Lymphocytes # 0.8 10*3/uL (1.4-4.0); Lymphocytes % 22.7 % (21.3-54.2); Mean Corpuscular HGB Conc 32.2 GM/DL (32-36); Mean Corpuscular Volume 108.9 FL (87-102); Monocytes % 6.9 % (1.7-12.7); Neutrophils % 65.3 % (38.7-73.9); Platelet Count 45 T/CUMM (130-400); Red Blood Count 2.25 MC/CUMM (3.8-5.5); Red Cell Distribution Width 21.2 % (9.3-17.3); White Blood Count 3.3 T/CUMM (4-12)
[2021-05-15 05:23] LABS: Calcium 7.8 MG/DL (8.5-10.1); Osmolality,Calculated 286.8 MOS/KG (273-304); Potassium 3.7 MMOL/L (3.5-5.1)
[2021-05-15 05:29] LABS: Macrocytosis 1+
[2021-05-15 05:30] LABS: Anisocytosis 1+; Platelet Estimate Decreased
[2021-05-15] MEDS: LACTULOSE 20 GM/30 ML UDCUP PO SCH ×4 (05:39→22:36)
[2021-05-15] MEDS: PANTOPRAZOLE 40 MG TABLET PO SCH (10:00)
[2021-05-15] MEDS: RIFAXIMIN 550 MG TABLET PO SCH ×2 (10:00→21:04)
[2021-05-15] MEDS: FUROSEMIDE 40 MG/4 ML VIAL IV SCH (10:00)
[2021-05-15] MEDS: INSULIN LISPRO 100 UNIT/ML SUBCUT SCH ×4 (10:05→21:05)
[2021-05-15] MEDS ORDERED: INSULIN GLARGINE 100 UNIT/ML SUBCUT ONE (17:04)
[2021-05-15] MEDS: BACILLUS COAGULANS CAPLET PO SCH (17:21)
[2021-05-15] MEDS: AMITRIPTYLINE 25 MG TABLET PO SCH (21:04)
[2021-05-16 05:09] LABS: Basophils % 0.6 % (0.0-0.8); Eosinophils % 1.1 % (0.00-10.9); Hematocrit 26.7 VOL% (35.7-47.0); Hemoglobin 8.9 GM/DL (12.0-16.0); Immature Granulocytes % 0.3 %; Immature Granulocytes Absolute 0.01 #; Lymphocytes # 0.6 10*3/uL (1.4-4.0); Lymphocytes % 16.1 % (21.3-54.2); Mean Corpuscular HGB Conc 33.3 GM/DL (32-36); Mean Corpuscular Volume 106.8 FL (87-102); Mean Platelet Volume 11.8 FL (9.6-12.0); Neutrophils % 73.9 % (38.7-73.9); Platelet Count 56 T/CUMM (130-400); Red Cell Distribution Width 20.8 % (9.3-17.3); White Blood Count 3.5 T/CUMM (4-12)
[2021-05-16 05:24] LABS: Calcium 8.1 MG/DL (8.5-10.1); Osmolality,Calculated 279.5 MOS/KG (273-304); Potassium 3.6 MMOL/L (3.5-5.1)
[2021-05-16 05:34] LABS: Hypochromia 1+; Microcytosis 1+
[2021-05-16 05:35] LABS: Platelet Estimate Decreased
[2021-05-16] MEDS: LACTULOSE 20 GM/30 ML UDCUP PO SCH ×2 (06:05→12:07)
[2021-05-16] MEDS: RIFAXIMIN 550 MG TABLET PO SCH (08:23)
[2021-05-16] MEDS: BACILLUS COAGULANS CAPLET PO SCH (08:23)
[2021-05-16] MEDS: PANTOPRAZOLE 40 MG TABLET PO SCH (08:23)
[2021-05-16] MEDS: FUROSEMIDE 40 MG/4 ML VIAL IV SCH (08:24)
[2021-05-16] MEDS: INSULIN LISPRO 100 UNIT/ML SUBCUT SCH ×2 (08:30→12:06)
[2021-05-16 12:39] VITALS: BP 147/47
[2021-05-16] MEDS ORDERED: INSULIN GLARGINE 100 UNIT/ML SUBCUT SCH (21:00)
== END 2021-05-16 13:27 | disposition home health service (06) | DRG 442 ==
LOC: N.ED 11:49 → SUATTDRO 15:38 → N.5E 15:38
PROVIDERS: ADMIT Internal Medicine; ATTEND Hospitalist

== ENCOUNTER 2021-06-30 12:39 | Inpatient (IN) ==
[2021-06-30] MEDS ORDERED: FUROSEMIDE 40 MG/4 ML VIAL IV STA (12:51)
[2021-06-30] MEDS ORDERED: ALBUTEROL/IPRATROPIUM 3 ML NEB RESP TX STA (12:51)
[2021-06-30] MEDS ORDERED: fentaNYL 100 MCG/2 ML VIAL IV STA (13:24)
[2021-06-30 13:40] LABS: Basophils % 0.5 % (0.0-0.8); Eosinophils # 0.1 10*3/uL (0.0-0.87); Eosinophils % 0.8 % (0.00-10.9); Hematocrit 21.6 VOL% (35.7-47.0); Immature Granulocytes % 1.1 %; Immature Granulocytes Absolute 0.07 #; Lymphocytes # 0.9 10*3/uL (1.4-4.0); Lymphocytes % 12.8 % (21.3-54.2); Mean Corpuscular HGB Conc 32.4 GM/DL (32-36); Mean Corpuscular Volume 101.9 FL (87-102); Mean Platelet Volume 10.8 FL (9.6-12.0); Monocytes # 0.4 10*3/uL (0.11-0.8); Monocytes % 5.7 % (1.7-12.7); Neutrophils % 79.1 % (38.7-73.9); Platelet Count 113 T/CUMM (130-400); Red Blood Count 2.12 MC/CUMM (3.8-5.5); Red Cell Distribution Width 20.2 % (9.3-17.3); White Blood Count 6.7 T/CUMM (4-12)
[2021-06-30 13:47] LABS: INR 1.2; PT Patient Result 13.1 SECS (10.5-12.0); Partial Thromboplastin Time 41.1 SECS (23.8-32.1)
[2021-06-30 14:14] LABS: Band Neutrophils 1 % (0-10); Lymphocytes 9 % (20-55); Total Cells Counted 100
[2021-06-30 14:16] LABS: Anisocytosis 1+
[2021-06-30 14:17] LABS: Platelet Estimate Decreased; Schistocytes Slight
[2021-06-30 14:23] LABS: Albumin 1.4 G/DL (3.4-5.0); Calcium 8.1 MG/DL (8.5-10.1); Osmolality,Calculated 286.4 MOS/KG (273-304); Potassium 3.8 MMOL/L (3.5-5.1); Total Protein 5.6 G/DL (6.4-8.2)
[2021-06-30] MEDS ORDERED: GLUCAGON 1 MG VIAL IM PRN ×2 (16:52)
[2021-06-30] MEDS ORDERED: DEXTROSE 50% 25 GM/50 ML VIAL IV PRN (16:52)
[2021-06-30] MEDS ORDERED: ONDANSETRON 4 MG/2 ML VIAL IV PRN (16:52)
[2021-06-30] MEDS ORDERED: SODIUM CHLORIDE 0.9% 1,000 ML IV PRN (16:59)
[2021-06-30] MEDS ORDERED: DEXTROSE 10% 250 ML BAG IV PRN (17:00)
[2021-06-30] MEDS: INSULIN LISPRO 100 UNIT/ML SUBCUT SCH ×2 (17:28→21:23)
[2021-06-30] MEDS ORDERED: PIPERACILLIN/TAZOBACTAM 3,375 MG in SODIUM CHLORIDE 0.9% 100 ML IV SCH (18:00)
[2021-06-30] MEDS ORDERED: FUROSEMIDE 20 MG TABLET PO SCH (21:00)
[2021-06-30] MEDS: LACTULOSE 20 GM/30 ML UDCUP PO SCH (21:24)
[2021-06-30] MEDS: RIFAXIMIN 550 MG TABLET PO SCH (21:24)
[2021-06-30] MEDS: AMITRIPTYLINE 25 MG TABLET PO SCH (21:24)
[2021-07-01] MEDS ORDERED: MORPHINE 2 MG/1 ML SYRINGE IV ONE (03:28)
[2021-07-01 06:11] LABS: Basophils % 0.2 % (0.0-0.8); Eosinophils # 0.1 10*3/uL (0.0-0.87); Eosinophils % 1.5 % (0.00-10.9); Hematocrit 19.1 VOL% (35.7-47.0); Immature Granulocytes % 0.7 %; Immature Granulocytes Absolute 0.04 #; Lymphocytes # 0.8 10*3/uL (1.4-4.0); Mean Corpuscular HGB Conc 31.9 GM/DL (32-36); Mean Corpuscular Volume 100.5 FL (87-102); Mean Platelet Volume 11.2 FL (9.6-12.0); Monocytes # 0.4 10*3/uL (0.11-0.8); Monocytes % 6.4 % (1.7-12.7); Neutrophils % 77.2 % (38.7-73.9); Platelet Count 91 T/CUMM (130-400); Red Cell Distribution Width 20.1 % (9.3-17.3); White Blood Count 5.9 T/CUMM (4-12)
[2021-07-01 06:12] LABS: Hemoglobin 6.1 GM/DL (12.0-16.0)
[2021-07-01 06:28] LABS: Calcium 7.9 MG/DL (8.5-10.1); Osmolality,Calculated 291.8 MOS/KG (273-304); Potassium 3.9 MMOL/L (3.5-5.1)
[2021-07-01 06:30] LABS: Hypochromia 1+; Microcytosis 1+; Ovalocytes Slight
[2021-07-01 06:31] LABS: Platelet Estimate Decreased
[2021-07-01] MEDS: INSULIN LISPRO 100 UNIT/ML SUBCUT SCH ×3 (09:30→15:43)
[2021-07-01] MEDS: RIFAXIMIN 550 MG TABLET PO SCH ×2 (09:31→21:30)
[2021-07-01] MEDS: LACTULOSE 20 GM/30 ML UDCUP PO SCH ×4 (09:31→21:31)
[2021-07-01] MEDS: PANTOPRAZOLE 40 MG TABLET PO SCH (09:31)
[2021-07-01] MEDS: FUROSEMIDE 40 MG/4 ML VIAL IV SCH ×2 (09:50→15:26)
[2021-07-01] MEDS ORDERED: ACETAMINOPHEN 325 MG TABLET PO ONE (11:14)
[2021-07-01 16:03] LABS: Hematocrit 22.3 VOL% (35.7-47.0); Hemoglobin 7.2 GM/DL (12.0-16.0)
[2021-07-01] MEDS: MORPHINE 2 MG/1 ML SYRINGE IV PRN (19:17)
[2021-07-01] MEDS: BENZONATATE 100 MG CAPSULE PO PRN (19:18)
[2021-07-01] MEDS: AMITRIPTYLINE 25 MG TABLET PO SCH (21:30)
[2021-07-02] MEDS: INSULIN LISPRO 100 UNIT/ML SUBCUT SCH ×5 (00:38→22:18)
[2021-07-02] MEDS: MORPHINE 2 MG/1 ML SYRINGE IV PRN (06:08)
[2021-07-02 07:08] LABS: Basophils % 0.3 % (0.0-0.8); Eosinophils # 0.1 10*3/uL (0.0-0.87); Eosinophils % 2.1 % (0.00-10.9); Hematocrit 24.2 VOL% (35.7-47.0); Hemoglobin 7.7 GM/DL (12.0-16.0); Immature Granulocytes % 0.7 %; Immature Granulocytes Absolute 0.05 #; Lymphocytes # 0.8 10*3/uL (1.4-4.0); Lymphocytes % 11.5 % (21.3-54.2); Mean Corpuscular HGB Conc 31.8 GM/DL (32-36); Mean Corpuscular Volume 97.2 FL (87-102); Monocytes # 0.5 10*3/uL (0.11-0.8); Monocytes % 6.9 % (1.7-12.7); Neutrophils % 78.5 % (38.7-73.9); Red Blood Count 2.49 MC/CUMM (3.8-5.5); Red Cell Distribution Width 22.1 % (9.3-17.3); White Blood Count 6.7 T/CUMM (4-12)
[2021-07-02 07:10] LABS: Platelet Count 90 T/CUMM (130-400)
[2021-07-02 07:23] LABS: Calcium 8.3 MG/DL (8.5-10.1); Osmolality,Calculated 287.5 MOS/KG (273-304); Potassium 3.9 MMOL/L (3.5-5.1)
[2021-07-02 07:37] LABS: Hypochromia 1+; Microcytosis 1+; Platelet Estimate Decreased
[2021-07-02 08:18] LABS: Albumin 1.5 G/DL (3.4-5.0); Bilirubin,Direct 2.14 MG/DL (0.0-0.20); Bilirubin,Indirect 1.5 MG/DL (0.0-1.0); Bilirubin,Total 3.6 MG/DL (0.20-1.00); Total Protein 5.2 G/DL (6.4-8.2)
[2021-07-02] MEDS: PANTOPRAZOLE 40 MG TABLET PO SCH (08:58)
[2021-07-02] MEDS: LACTULOSE 20 GM/30 ML UDCUP PO SCH ×4 (08:58→22:22)
[2021-07-02] MEDS: FUROSEMIDE 40 MG/4 ML VIAL IV SCH ×2 (08:58→17:46)
[2021-07-02] MEDS: RIFAXIMIN 550 MG TABLET PO SCH ×2 (08:58→22:22)
[2021-07-02] MEDS: BENZONATATE 100 MG CAPSULE PO PRN (11:56)
[2021-07-02] MEDS: guaiFENesin/DM ER 600-30 MG TABLET PO SCH ×2 (15:36→22:22)
[2021-07-02] MEDS: AMITRIPTYLINE 25 MG TABLET PO SCH (22:22)
[2021-07-03 09:14] LABS: Basophils % 0.3 % (0.0-0.8); Eosinophils % 0.3 % (0.00-10.9); Hematocrit 21.1 VOL% (35.7-47.0); Hemoglobin 6.8 GM/DL (12.0-16.0); Immature Granulocytes % 0.7 %; Immature Granulocytes Absolute 0.05 #; Lymphocytes # 0.7 10*3/uL (1.4-4.0); Lymphocytes % 9.7 % (21.3-54.2); Mean Corpuscular HGB Conc 32.2 GM/DL (32-36); Mean Corpuscular Volume 96.8 FL (87-102); Mean Platelet Volume 10.4 FL (9.6-12.0); Monocytes # 0.5 10*3/uL (0.11-0.8); Monocytes % 7.1 % (1.7-12.7); Neutrophils % 81.9 % (38.7-73.9); Platelet Count 80 T/CUMM (130-400); Red Blood Count 2.18 MC/CUMM (3.8-5.5); Red Cell Distribution Width 22.3 % (9.3-17.3); White Blood Count 6.8 T/CUMM (4-12)
[2021-07-03 09:35] LABS: Albumin 1.3 G/DL (3.4-5.0); Bilirubin,Total 3.1 MG/DL (0.20-1.00); Calcium 8.1 MG/DL (8.5-10.1); Osmolality,Calculated 285.7 MOS/KG (273-304); Potassium 3.8 MMOL/L (3.5-5.1); Total Protein 5.5 G/DL (6.4-8.2)
[2021-07-03 09:41] LABS: Hypochromia 1+
[2021-07-03 09:42] LABS: Microcytosis 1+; Ovalocytes Slight; Platelet Estimate Decreased; Polychromasia Slight
[2021-07-03] MEDS: FUROSEMIDE 40 MG/4 ML VIAL IV SCH ×2 (10:14→17:39)
[2021-07-03] MEDS: INSULIN LISPRO 100 UNIT/ML SUBCUT SCH ×4 (10:15→23:00)
[2021-07-03] MEDS: guaiFENesin/DM ER 600-30 MG TABLET PO SCH ×2 (10:15→22:00)
[2021-07-03] MEDS: LACTULOSE 20 GM/30 ML UDCUP PO SCH ×4 (10:15→23:08)
[2021-07-03] MEDS: RIFAXIMIN 550 MG TABLET PO SCH ×2 (10:16→22:00)
[2021-07-03] MEDS: PANTOPRAZOLE 40 MG TABLET PO SCH (10:16)
[2021-07-03] MEDS: BENZONATATE 100 MG CAPSULE PO PRN (22:00)
[2021-07-03] MEDS: AMITRIPTYLINE 25 MG TABLET PO SCH (22:00)
[2021-07-04 05:41] LABS: Basophils % 0.4 % (0.0-0.8); Eosinophils # 0.1 10*3/uL (0.0-0.87); Eosinophils % 2.1 % (0.00-10.9); Hematocrit 20.8 VOL% (35.7-47.0); Hemoglobin 6.7 GM/DL (12.0-16.0); Immature Granulocytes % 0.6 %; Immature Granulocytes Absolute 0.03 #; Lymphocytes # 0.9 10*3/uL (1.4-4.0); Lymphocytes % 19.2 % (21.3-54.2); Mean Corpuscular HGB Conc 32.2 GM/DL (32-36); Mean Corpuscular Volume 98.1 FL (87-102); Mean Platelet Volume 11.1 FL (9.6-12.0); Monocytes # 0.4 10*3/uL (0.11-0.8); Monocytes % 8.9 % (1.7-12.7); Neutrophils % 68.8 % (38.7-73.9); Platelet Count 74 T/CUMM (130-400); Red Blood Count 2.12 MC/CUMM (3.8-5.5); Red Cell Distribution Width 22.4 % (9.3-17.3); White Blood Count 4.7 T/CUMM (4-12)
[2021-07-04 05:58] LABS: Albumin 1.4 G/DL (3.4-5.0); Bilirubin,Total 2.2 MG/DL (0.20-1.00); Calcium 7.8 MG/DL (8.5-10.1); Osmolality,Calculated 288.5 MOS/KG (273-304); Potassium 3.7 MMOL/L (3.5-5.1); Total Protein 5.4 G/DL (6.4-8.2)
[2021-07-04 06:51] LABS: Microcytosis 1+; Ovalocytes Slight; Platelet Estimate Decreased; Polychromasia Slight
[2021-07-04] MEDS: INSULIN LISPRO 100 UNIT/ML SUBCUT SCH ×4 (07:45→21:48)
[2021-07-04] MEDS ORDERED: LACTATED RINGERS 1,000 ML IV SCH (08:00)
[2021-07-04] MEDS ORDERED: SODIUM CHLORIDE 0.9% 1,000 ML IV PRN ×2 (08:06→11:23)
[2021-07-04] MEDS: PANTOPRAZOLE 40 MG TABLET PO SCH (09:00)
[2021-07-04] MEDS: guaiFENesin/DM ER 600-30 MG TABLET PO SCH ×2 (09:00→21:48)
[2021-07-04] MEDS: RIFAXIMIN 550 MG TABLET PO SCH ×2 (09:00→21:48)
[2021-07-04] MEDS ORDERED: ACETAMINOPHEN 325 MG TABLET PO PRN (11:28)
[2021-07-04] MEDS: LACTULOSE 20 GM/30 ML UDCUP PO SCH ×4 (14:22→21:58)
[2021-07-04] MEDS: FUROSEMIDE 40 MG/4 ML VIAL IV SCH (16:47)
[2021-07-04] MEDS: FUROSEMIDE 20 MG TABLET PO SCH (17:17)
[2021-07-04] MEDS: AMITRIPTYLINE 25 MG TABLET PO SCH (21:48)
[2021-07-04] MEDS ORDERED: CLORAZEPATE 3.75 MG TABLET PO PRN (23:43)
[2021-07-05 05:21] LABS: Basophils % 0.2 % (0.0-0.8); Eosinophils # 0.1 10*3/uL (0.0-0.87); Eosinophils % 1.4 % (0.00-10.9); Hematocrit 20.6 VOL% (35.7-47.0); Hemoglobin 6.6 GM/DL (12.0-16.0); Immature Granulocytes % 0.5 %; Immature Granulocytes Absolute 0.03 #; Lymphocytes # 0.9 10*3/uL (1.4-4.0); Lymphocytes % 15.4 % (21.3-54.2); Mean Corpuscular Volume 98.6 FL (87-102); Mean Platelet Volume 11.3 FL (9.6-12.0); Monocytes # 0.4 10*3/uL (0.11-0.8); Monocytes % 7.2 % (1.7-12.7); Neutrophils % 75.3 % (38.7-73.9); Platelet Count 75 T/CUMM (130-400); Red Blood Count 2.09 MC/CUMM (3.8-5.5); Red Cell Distribution Width 22.2 % (9.3-17.3); White Blood Count 5.7 T/CUMM (4-12)
[2021-07-05 05:39] LABS: Albumin 1.3 G/DL (3.4-5.0); Bilirubin,Total 2.2 MG/DL (0.20-1.00); Calcium 8.1 MG/DL (8.5-10.1); Potassium 3.9 MMOL/L (3.5-5.1); Total Protein 5.7 G/DL (6.4-8.2)
[2021-07-05 05:44] LABS: Hypochromia Slight; Microcytosis Slight
[2021-07-05] MEDS: amLODIPine 10 MG TABLET PO SCH (09:10)
[2021-07-05] MEDS: INSULIN LISPRO 100 UNIT/ML SUBCUT SCH ×4 (09:10→21:04)
[2021-07-05] MEDS: FUROSEMIDE 20 MG TABLET PO SCH ×2 (09:10→17:31)
[2021-07-05] MEDS: RIFAXIMIN 550 MG TABLET PO SCH ×2 (09:10→21:23)
[2021-07-05] MEDS: PANTOPRAZOLE 40 MG TABLET PO SCH (09:10)
[2021-07-05] MEDS: guaiFENesin/DM ER 600-30 MG TABLET PO SCH ×2 (09:10→21:23)
[2021-07-05] MEDS: LACTULOSE 20 GM/30 ML UDCUP PO SCH ×4 (09:11→21:23)
[2021-07-05] MEDS: BENZONATATE 100 MG CAPSULE PO PRN (09:12)
[2021-07-05] MEDS: AMITRIPTYLINE 25 MG TABLET PO SCH (21:23)
[2021-07-06 06:09] LABS: Basophils % 0.4 % (0.0-0.8); Eosinophils % 0.8 % (0.00-10.9); Hematocrit 22.2 VOL% (35.7-47.0); Hemoglobin 7.1 GM/DL (12.0-16.0); Immature Granulocytes % 0.6 %; Immature Granulocytes Absolute 0.03 #; Lymphocytes # 0.8 10*3/uL (1.4-4.0); Lymphocytes % 14.6 % (21.3-54.2); Mean Corpuscular Volume 98.2 FL (87-102); Mean Platelet Volume 10.8 FL (9.6-12.0); Monocytes # 0.3 10*3/uL (0.11-0.8); Monocytes % 6.2 % (1.7-12.7); Neutrophils % 77.4 % (38.7-73.9); Platelet Count 84 T/CUMM (130-400); Red Blood Count 2.26 MC/CUMM (3.8-5.5); Red Cell Distribution Width 22.9 % (9.3-17.3); White Blood Count 5.3 T/CUMM (4-12)
[2021-07-06] MEDS: BENZONATATE 100 MG CAPSULE PO PRN (06:22)
[2021-07-06 06:35] LABS: Albumin 1.3 G/DL (3.4-5.0); Bilirubin,Total 2.8 MG/DL (0.20-1.00); Calcium 7.9 MG/DL (8.5-10.1); Total Protein 5.9 G/DL (6.4-8.2)
[2021-07-06] MEDS: FUROSEMIDE 20 MG TABLET PO SCH ×2 (08:32→17:06)
[2021-07-06] MEDS: amLODIPine 10 MG TABLET PO SCH (08:32)
[2021-07-06] MEDS: guaiFENesin/DM ER 600-30 MG TABLET PO SCH ×2 (08:32→21:30)
[2021-07-06] MEDS: PANTOPRAZOLE 40 MG TABLET PO SCH (08:32)
[2021-07-06] MEDS: RIFAXIMIN 550 MG TABLET PO SCH ×2 (08:32→21:30)
[2021-07-06] MEDS: INSULIN LISPRO 100 UNIT/ML SUBCUT SCH ×4 (08:32→21:30)
[2021-07-06] MEDS: LACTULOSE 20 GM/30 ML UDCUP PO SCH ×4 (08:33→22:51)
[2021-07-06] MEDS: AMITRIPTYLINE 25 MG TABLET PO SCH (21:30)
[2021-07-07 05:41] LABS: Albumin 1.3 G/DL (3.4-5.0); Bilirubin,Direct 1.47 MG/DL (0.0-0.20); Bilirubin,Indirect 0.8 MG/DL (0.0-1.0); Bilirubin,Total 2.3 MG/DL (0.20-1.00); Calcium 7.6 MG/DL (8.5-10.1); Osmolality,Calculated 288.7 MOS/KG (273-304); Potassium 3.9 MMOL/L (3.5-5.1); Total Protein 5.4 G/DL (6.4-8.2)
[2021-07-07 05:45] LABS: Albumin 1.2 G/DL (3.4-5.0); Bilirubin,Total 2.2 MG/DL (0.20-1.00); Calcium 7.6 MG/DL (8.5-10.1); Osmolality,Calculated 286.8 MOS/KG (273-304); Potassium 3.9 MMOL/L (3.5-5.1); Total Protein 5.4 G/DL (6.4-8.2)
[2021-07-07 07:18] LABS: Basophils % 0.2 % (0.0-0.8); Eosinophils % 0.4 % (0.00-10.9); Hematocrit 18.9 VOL% (35.7-47.0); Immature Granulocytes % 0.7 %; Immature Granulocytes Absolute 0.03 #; Lymphocytes # 0.7 10*3/uL (1.4-4.0); Lymphocytes % 15.6 % (21.3-54.2); Mean Corpuscular HGB Conc 31.2 GM/DL (32-36); Mean Corpuscular Volume 100.5 FL (87-102); Monocytes # 0.3 10*3/uL (0.11-0.8); Monocytes % 7.6 % (1.7-12.7); Neutrophils % 75.5 % (38.7-73.9); Platelet Count 68 T/CUMM (130-400); Red Blood Count 1.88 MC/CUMM (3.8-5.5); Red Cell Distribution Width 23.7 % (9.3-17.3); White Blood Count 4.5 T/CUMM (4-12)
[2021-07-07 07:26] LABS: Hemoglobin 5.9 GM/DL (12.0-16.0)
[2021-07-07 07:35] LABS: Anisocytosis 1+
[2021-07-07 07:36] LABS: Ovalocytes Slight; Platelet Estimate Decreased; Polychromasia Slight
[2021-07-07] MEDS: PANTOPRAZOLE 40 MG TABLET PO SCH (09:01)
[2021-07-07] MEDS: LACTULOSE 20 GM/30 ML UDCUP PO SCH ×5 (09:01→20:20)
[2021-07-07] MEDS: INSULIN LISPRO 100 UNIT/ML SUBCUT SCH ×4 (09:01→21:20)
[2021-07-07] MEDS: amLODIPine 10 MG TABLET PO SCH (09:02)
[2021-07-07] MEDS: guaiFENesin/DM ER 600-30 MG TABLET PO SCH ×2 (09:02→20:20)
[2021-07-07] MEDS: RIFAXIMIN 550 MG TABLET PO SCH ×2 (09:02→20:20)
[2021-07-07] MEDS: FUROSEMIDE 20 MG TABLET PO SCH ×2 (09:02→18:52)
[2021-07-07] MEDS ORDERED: ACETAMINOPHEN 325 MG TABLET PO ONE (10:00)
[2021-07-07] MEDS ORDERED: diphenhydrAMINE CAP 25 MG CAPSULE PO ONE (10:00)
[2021-07-07 18:28] LABS: Hematocrit 25.8 VOL% (35.7-47.0); Hemoglobin 7.9 GM/DL (12.0-16.0)
[2021-07-08 06:26] LABS: Basophils % 0.4 % (0.0-0.8); Eosinophils # 0.1 10*3/uL (0.0-0.87); Eosinophils % 0.9 % (0.00-10.9); Hematocrit 25.3 VOL% (35.7-47.0); Immature Granulocytes % 0.5 %; Immature Granulocytes Absolute 0.03 #; Lymphocytes # 0.7 10*3/uL (1.4-4.0); Lymphocytes % 11.7 % (21.3-54.2); Mean Corpuscular HGB Conc 31.6 GM/DL (32-36); Mean Corpuscular Volume 96.9 FL (87-102); Mean Platelet Volume 10.9 FL (9.6-12.0); Monocytes # 0.3 10*3/uL (0.11-0.8); Monocytes % 5.8 % (1.7-12.7); Neutrophils % 80.7 % (38.7-73.9); Platelet Count 71 T/CUMM (130-400); Red Blood Count 2.61 MC/CUMM (3.8-5.5); Red Cell Distribution Width 22.1 % (9.3-17.3); White Blood Count 5.6 T/CUMM (4-12)
[2021-07-08 06:48] LABS: Albumin 1.3 G/DL (3.4-5.0); Anisocytosis 2+; Bilirubin,Total 3.1 MG/DL (0.20-1.00); Calcium 7.4 MG/DL (8.5-10.1); Osmolality,Calculated 288.7 MOS/KG (273-304); Platelet Estimate Decreased; Poikilocytosis Slight; Potassium 4.1 MMOL/L (3.5-5.1); Total Protein 5.7 G/DL (6.4-8.2)
[2021-07-08 06:49] LABS: Burr Cells Few; Macrocytosis Slight; Ovalocytes Few
[2021-07-08] MEDS: INSULIN LISPRO 100 UNIT/ML SUBCUT SCH ×4 (08:58→20:45)
[2021-07-08] MEDS: FUROSEMIDE 20 MG TABLET PO SCH ×2 (09:00→16:45)
[2021-07-08] MEDS: PANTOPRAZOLE 40 MG TABLET PO SCH (09:00)
[2021-07-08] MEDS: amLODIPine 10 MG TABLET PO SCH (09:00)
[2021-07-08] MEDS: guaiFENesin/DM ER 600-30 MG TABLET PO SCH ×2 (09:00→20:10)
[2021-07-08] MEDS: LACTULOSE 20 GM/30 ML UDCUP PO SCH ×4 (09:02→20:10)
[2021-07-08] MEDS: SPIRONOLACTONE 100 MG TABLET PO SCH (14:57)
[2021-07-09 05:40] LABS: Basophils % 0.3 % (0.0-0.8); Eosinophils % 0.6 % (0.00-10.9); Hematocrit 25.2 VOL% (35.7-47.0); Hemoglobin 8.1 GM/DL (12.0-16.0); Immature Granulocytes % 0.6 %; Immature Granulocytes Absolute 0.04 #; Lymphocytes # 0.7 10*3/uL (1.4-4.0); Lymphocytes % 11.4 % (21.3-54.2); Mean Corpuscular HGB Conc 32.1 GM/DL (32-36); Mean Corpuscular Volume 96.9 FL (87-102); Mean Platelet Volume 11.2 FL (9.6-12.0); Monocytes # 0.4 10*3/uL (0.11-0.8); Monocytes % 6.3 % (1.7-12.7); Neutrophils % 80.8 % (38.7-73.9); Platelet Count 79 T/CUMM (130-400); Red Cell Distribution Width 22.4 % (9.3-17.3); White Blood Count 6.2 T/CUMM (4-12)
[2021-07-09 05:54] LABS: Osmolality,Calculated 291.7 MOS/KG (273-304)
[2021-07-09 06:01] LABS: Anisocytosis 2+; Burr Cells Few; Macrocytosis Slight; Ovalocytes Few; Platelet Estimate Decreased; Poikilocytosis 1+
[2021-07-09] MEDS: amLODIPine 10 MG TABLET PO SCH (08:58)
[2021-07-09] MEDS: guaiFENesin/DM ER 600-30 MG TABLET PO SCH (08:58)
[2021-07-09] MEDS: SPIRONOLACTONE 100 MG TABLET PO SCH (08:59)
[2021-07-09] MEDS: PANTOPRAZOLE 40 MG TABLET PO SCH (08:59)
[2021-07-09] MEDS: FUROSEMIDE 20 MG TABLET PO SCH (08:59)
[2021-07-09] MEDS: INSULIN LISPRO 100 UNIT/ML SUBCUT SCH ×2 (09:00→12:22)
[2021-07-09] MEDS: LACTULOSE 20 GM/30 ML UDCUP PO SCH ×2 (09:06→15:00)
[2021-07-09 12:19] VITALS: BP 129/41
== END 2021-07-09 15:09 | disposition home health service (06) | DRG 811 ==
LOC: EDUNIT# → EDBD → N.EDINP 12:39 → N.ED 12:39 → SUATTDRO 17:25 → N.EDINP 17:56 → N.5E 18:08
PROVIDERS: ADMIT Internal Medicine Geriatric Medicine; ATTEND Internal Medicine

== ENCOUNTER 2021-07-18 15:19 | Inpatient (IN) ==
[2021-07-18] MEDS ORDERED: GLUCAGON 1 MG VIAL IM PRN (17:42)
[2021-07-18] MEDS ORDERED: hydrALAZINE 20 MG/1 ML VIAL IV PRN (17:42)
[2021-07-18] MEDS ORDERED: DEXTROSE 10% 250 ML BAG IV PRN (17:51)
[2021-07-18] MEDS ORDERED: SODIUM CHLORIDE 0.9% 1,000 ML IV PRN (17:57)
[2021-07-18] MEDS ORDERED: LACTULOSE 20 GM/30 ML UDCUP PO SCH (18:00)
[2021-07-18] MEDS: FUROSEMIDE 20 MG/2 ML VIAL IV SCH (18:20)
[2021-07-18 18:52] LABS: Basophils % 0.2 % (0.0-0.8); Eosinophils # 0.1 10*3/uL (0.0-0.87); Eosinophils % 1.6 % (0.00-10.9); Hematocrit 20.1 VOL% (35.7-47.0); Immature Granulocytes % 0.6 %; Immature Granulocytes Absolute 0.03 #; Lymphocytes # 0.7 10*3/uL (1.4-4.0); Lymphocytes % 14.3 % (21.3-54.2); Mean Corpuscular HGB Conc 31.3 GM/DL (32-36); Mean Platelet Volume 10.2 FL (9.6-12.0); Monocytes # 0.4 10*3/uL (0.11-0.8); Monocytes % 6.9 % (1.7-12.7); Neutrophils % 76.4 % (38.7-73.9); Platelet Count 91 T/CUMM (130-400); Red Blood Count 1.99 MC/CUMM (3.8-5.5); Red Cell Distribution Width 23.1 % (9.3-17.3); White Blood Count 5.1 T/CUMM (4-12)
[2021-07-18 18:58] LABS: Hemoglobin 6.3 GM/DL (12.0-16.0)
[2021-07-18 19:12] LABS: Risk Ratio 3.08; Thyroid Stimulating Hormone 2.09 uIU/ml (0.358-3.74); VLDL Cholesterol 17.4 MG/DL
[2021-07-18 19:17] LABS: Folate 7.62 NG/ML (5.38-24.0); Vitamin B12 635 PG/ML (211-911)
[2021-07-18 19:32] LABS: Eosinophils 2 % (0-10); Lymphocytes 12 % (20-55); Total Cells Counted 100
[2021-07-18 19:37] LABS: Anisocytosis Slight; Hypochromia Slight; Macrocytosis Slight; Platelet Estimate Decreased; Polychromasia 1+
[2021-07-18 19:38] LABS: Elliptocytes Few; Poikilocytosis Few
[2021-07-18] MEDS: PANTOPRAZOLE 40 MG TABLET PO SCH (20:38)
[2021-07-18] MEDS: RIFAXIMIN 550 MG TABLET PO SCH (20:38)
[2021-07-18] MEDS: INSULIN LISPRO 100 UNIT/ML SUBCUT SCH (20:39)
[2021-07-18] MEDS: LACTULOSE 20 GM/30 ML UDCUP PO SCH (20:39)
[2021-07-18 20:41] LABS: Sedimentation Rate-Westergren 143 MM/HR (0-30)
[2021-07-19] MEDS: ALBUTEROL/IPRATROPIUM 3 ML NEB RESP TX SCH ×4 (01:15→19:35)
[2021-07-19] MEDS: oxyCODONE IR 5 MG TABLET PO PRN ×3 (01:20→21:50)
[2021-07-19 05:58] LABS: Basophils % 0.2 % (0.0-0.8); Eosinophils # 0.1 10*3/uL (0.0-0.87); Eosinophils % 1.2 % (0.00-10.9); Hematocrit 18.7 VOL% (35.7-47.0); Immature Granulocytes % 0.4 %; Immature Granulocytes Absolute 0.02 #; Lymphocytes # 0.8 10*3/uL (1.4-4.0); Lymphocytes % 16.2 % (21.3-54.2); Mean Corpuscular HGB Conc 31.6 GM/DL (32-36); Mean Platelet Volume 10.4 FL (9.6-12.0); Monocytes # 0.3 10*3/uL (0.11-0.8); Monocytes % 6.6 % (1.7-12.7); Neutrophils % 75.4 % (38.7-73.9); Platelet Count 89 T/CUMM (130-400); Red Blood Count 1.87 MC/CUMM (3.8-5.5); Red Cell Distribution Width 23.1 % (9.3-17.3); White Blood Count 4.8 T/CUMM (4-12)
[2021-07-19 06:18] LABS: Albumin 1.3 G/DL (3.4-5.0); Bilirubin,Total 2.1 MG/DL (0.20-1.00); Calcium 7.9 MG/DL (8.5-10.1); Osmolality,Calculated 287.8 MOS/KG (273-304); Potassium 3.4 MMOL/L (3.5-5.1); Total Protein 5.8 G/DL (6.4-8.2)
[2021-07-19 06:24] LABS: Hemoglobin 5.9 GM/DL (12.0-16.0)
[2021-07-19 06:35] LABS: Eosinophils 1 % (0-10); Hypochromia Slight; Lymphocytes 10 % (20-55); Platelet Estimate Decreased; Total Cells Counted 100
[2021-07-19] MEDS: LACTULOSE 20 GM/30 ML UDCUP PO SCH ×4 (08:58→21:50)
[2021-07-19] MEDS: PANTOPRAZOLE 40 MG TABLET PO SCH ×2 (08:58→21:48)
[2021-07-19] MEDS: SPIRONOLACTONE 100 MG TABLET PO SCH (08:58)
[2021-07-19] MEDS: amLODIPine 10 MG TABLET PO SCH (08:59)
[2021-07-19] MEDS: RIFAXIMIN 550 MG TABLET PO SCH ×2 (08:59→21:48)
[2021-07-19] MEDS ORDERED: PANTOPRAZOLE 40 MG TABLET PO SCH (09:00)
[2021-07-19] MEDS: INSULIN LISPRO 100 UNIT/ML SUBCUT SCH ×4 (09:00→22:06)
[2021-07-19] MEDS: FERRIC GLUCONATE COMPLEX 125 MG in SODIUM CHLORIDE 0.9% 100 ML IV SCH (15:00)
[2021-07-19] MEDS: FUROSEMIDE 20 MG/2 ML VIAL IV SCH ×2 (15:03→16:31)
[2021-07-20] MEDS: ALBUTEROL/IPRATROPIUM 3 ML NEB RESP TX SCH ×4 (01:20→19:30)
[2021-07-20 06:07] LABS: Basophils % 0.3 % (0.0-0.8); Eosinophils # 0.1 10*3/uL (0.0-0.87); Eosinophils % 2.3 % (0.00-10.9); Immature Granulocytes % 0.5 %; Immature Granulocytes Absolute 0.02 #; Lymphocytes # 0.7 10*3/uL (1.4-4.0); Lymphocytes % 18.5 % (21.3-54.2); Mean Corpuscular HGB Conc 30.8 GM/DL (32-36); Mean Corpuscular Volume 101.2 FL (87-102); Monocytes # 0.3 10*3/uL (0.11-0.8); Monocytes % 6.5 % (1.7-12.7); Neutrophils % 71.9 % (38.7-73.9); Platelet Count 85 T/CUMM (130-400); Red Cell Distribution Width 23.5 % (9.3-17.3); White Blood Count 3.8 T/CUMM (4-12)
[2021-07-20 06:09] LABS: Hemoglobin 5.3 GM/DL (12.0-16.0)
[2021-07-20 06:10] LABS: Hematocrit 17.2 VOL% (35.7-47.0)
[2021-07-20 06:28] LABS: Anisocytosis 2+; Ovalocytes Few; Platelet Estimate Decreased
[2021-07-20 06:29] LABS: Macrocytosis 1+
[2021-07-20 06:34] LABS: Albumin 1.2 G/DL (3.4-5.0); Bilirubin,Total 1.8 MG/DL (0.20-1.00); Calcium 7.7 MG/DL (8.5-10.1); Osmolality,Calculated 288.7 MOS/KG (273-304); Potassium 3.6 MMOL/L (3.5-5.1); Total Protein 5.6 G/DL (6.4-8.2)
[2021-07-20] MEDS: FERRIC GLUCONATE COMPLEX 125 MG in SODIUM CHLORIDE 0.9% 100 ML IV SCH (08:39)
[2021-07-20] MEDS: FUROSEMIDE 20 MG/2 ML VIAL IV SCH ×2 (08:40→17:18)
[2021-07-20] MEDS: INSULIN LISPRO 100 UNIT/ML SUBCUT SCH ×4 (08:41→22:36)
[2021-07-20] MEDS: LACTULOSE 20 GM/30 ML UDCUP PO SCH ×4 (08:42→22:18)
[2021-07-20] MEDS: RIFAXIMIN 550 MG TABLET PO SCH ×2 (08:42→22:35)
[2021-07-20] MEDS: PANTOPRAZOLE 40 MG TABLET PO SCH ×2 (08:42→22:35)
[2021-07-20] MEDS: amLODIPine 10 MG TABLET PO SCH (08:43)
[2021-07-20] MEDS: SPIRONOLACTONE 100 MG TABLET PO SCH (08:43)
[2021-07-20] MEDS: LIDOCAINE 5% PATCH TRANSDERM SCH (12:02)
[2021-07-20] MEDS: ONDANSETRON 4 MG/2 ML VIAL IV PRN (13:00)
[2021-07-20] MEDS ORDERED: INSULIN GLARGINE 100 UNIT/ML SUBCUT SCH (21:00)
[2021-07-21] MEDS: ALBUTEROL/IPRATROPIUM 3 ML NEB RESP TX SCH ×4 (00:50→19:36)
[2021-07-21] MEDS: ONDANSETRON 4 MG/2 ML VIAL IV PRN (05:07)
[2021-07-21 05:35] LABS: Basophils % 0.2 % (0.0-0.8); Eosinophils # 0.1 10*3/uL (0.0-0.87); Immature Granulocytes % 0.7 %; Immature Granulocytes Absolute 0.03 #; Lymphocytes # 0.5 10*3/uL (1.4-4.0); Mean Corpuscular HGB Conc 30.9 GM/DL (32-36); Mean Platelet Volume 10.5 FL (9.6-12.0); Monocytes # 0.3 10*3/uL (0.11-0.8); Monocytes % 6.7 % (1.7-12.7); Neutrophils % 77.4 % (38.7-73.9); Platelet Count 76 T/CUMM (130-400); Red Blood Count 1.49 MC/CUMM (3.8-5.5); Red Cell Distribution Width 23.8 % (9.3-17.3)
[2021-07-21 05:42] LABS: Hematocrit 15.2 VOL% (35.7-47.0); Hemoglobin 4.7 GM/DL (12.0-16.0)
[2021-07-21 05:55] LABS: Platelet Estimate Decreased
[2021-07-21 06:06] LABS: Albumin 1.2 G/DL (3.4-5.0); Bilirubin,Total 1.6 MG/DL (0.20-1.00); Calcium 7.7 MG/DL (8.5-10.1); Osmolality,Calculated 287.7 MOS/KG (273-304); Potassium 3.8 MMOL/L (3.5-5.1); Total Protein 5.3 G/DL (6.4-8.2)
[2021-07-21] MEDS: FUROSEMIDE 20 MG/2 ML VIAL IV SCH ×2 (09:08→17:11)
[2021-07-21] MEDS: INSULIN LISPRO 100 UNIT/ML SUBCUT SCH ×5 (09:08→20:34)
[2021-07-21] MEDS: FERRIC GLUCONATE COMPLEX 125 MG in SODIUM CHLORIDE 0.9% 100 ML IV SCH (09:10)
[2021-07-21] MEDS: RIFAXIMIN 550 MG TABLET PO SCH ×2 (09:11→20:35)
[2021-07-21] MEDS: LACTULOSE 20 GM/30 ML UDCUP PO SCH ×4 (09:11→20:35)
[2021-07-21] MEDS: PANTOPRAZOLE 40 MG TABLET PO SCH ×2 (09:11→20:35)
[2021-07-21] MEDS: SPIRONOLACTONE 100 MG TABLET PO SCH (09:11)
[2021-07-21] MEDS: amLODIPine 10 MG TABLET PO SCH (09:11)
[2021-07-21] MEDS: LIDOCAINE 5% PATCH TRANSDERM SCH (10:01)
[2021-07-21 17:19] LABS: INR 1.2; PT Patient Result 13.1 SECS (10.5-12.0); Partial Thromboplastin Time 40.8 SECS (23.8-32.1)
[2021-07-21] MEDS: INSULIN GLARGINE 100 UNIT/ML SUBCUT SCH (20:35)
[2021-07-22] MEDS: ALBUTEROL/IPRATROPIUM 3 ML NEB RESP TX SCH ×4 (00:27→19:12)
[2021-07-22] MEDS: INSULIN LISPRO 100 UNIT/ML SUBCUT SCH ×8 (07:10→22:24)
[2021-07-22 08:03] LABS: Basophils % 0.3 % (0.0-0.8); Eosinophils # 0.1 10*3/uL (0.0-0.87); Eosinophils % 1.9 % (0.00-10.9); Hematocrit 20.5 VOL% (35.7-47.0); Hemoglobin 6.7 GM/DL (12.0-16.0); Immature Granulocytes % 0.9 %; Immature Granulocytes Absolute 0.06 #; Lymphocytes # 1.1 10*3/uL (1.4-4.0); Lymphocytes % 15.6 % (21.3-54.2); Mean Corpuscular HGB Conc 32.7 GM/DL (32-36); Mean Platelet Volume 10.2 FL (9.6-12.0); Monocytes # 0.5 10*3/uL (0.11-0.8); Monocytes % 7.2 % (1.7-12.7); Neutrophils % 74.1 % (38.7-73.9); Red Blood Count 2.07 MC/CUMM (3.8-5.5); Red Cell Distribution Width 22.6 % (9.3-17.3); White Blood Count 6.8 T/CUMM (4-12)
[2021-07-22 08:09] LABS: Platelet Count 108 T/CUMM (130-400)
[2021-07-22 08:33] LABS: Calcium 7.9 MG/DL (8.5-10.1); Osmolality,Calculated 281.7 MOS/KG (273-304)
[2021-07-22] MEDS ORDERED: INSULIN GLARGINE 100 UNIT/ML SUBCUT SCH (09:00)
[2021-07-22] MEDS: FERRIC GLUCONATE COMPLEX 125 MG in SODIUM CHLORIDE 0.9% 100 ML IV SCH (09:27)
[2021-07-22] MEDS: LACTULOSE 20 GM/30 ML UDCUP PO SCH ×4 (09:28→22:24)
[2021-07-22] MEDS: FUROSEMIDE 20 MG/2 ML VIAL IV SCH ×2 (09:28→16:39)
[2021-07-22] MEDS: LIDOCAINE 5% PATCH TRANSDERM SCH (09:29)
[2021-07-22] MEDS: SPIRONOLACTONE 100 MG TABLET PO SCH (09:29)
[2021-07-22] MEDS: amLODIPine 10 MG TABLET PO SCH (09:29)
[2021-07-22] MEDS: RIFAXIMIN 550 MG TABLET PO SCH ×2 (09:29→22:24)
[2021-07-22 12:39] LABS: Anisocytosis 1+; Polychromasia Slight
[2021-07-22 12:41] LABS: Target Cells Few
[2021-07-22 12:42] LABS: Platelet Estimate Adequate
[2021-07-22] MEDS: PANTOPRAZOLE 40 MG TABLET PO SCH ×2 (13:27→22:24)
[2021-07-22] MEDS ORDERED: diphenhydrAMINE CAP 25 MG CAPSULE PO PRN (16:58)
[2021-07-22] MEDS ORDERED: ACETAMINOPHEN 325 MG TABLET PO ONE (16:58)
[2021-07-22] MEDS ORDERED: methylPREDNISolone SOD SUC 40 MG/1 ML VIAL IV ONE (16:59)
[2021-07-22] MEDS ORDERED: diphenhydrAMINE CAP 25 MG CAPSULE PO ONE (17:30)
[2021-07-22] MEDS: ONDANSETRON 4 MG/2 ML VIAL IV PRN (17:34)
[2021-07-22] MEDS: INSULIN GLARGINE 100 UNIT/ML SUBCUT SCH (22:24)
[2021-07-23] MEDS: ALBUTEROL/IPRATROPIUM 3 ML NEB RESP TX SCH ×3 (00:08→13:55)
[2021-07-23 05:21] LABS: Hematocrit 22.7 VOL% (35.7-47.0); Hemoglobin 7.5 GM/DL (12.0-16.0); Immature Granulocytes % 1.1 %; Immature Granulocytes Absolute 0.06 #; Lymphocytes # 0.5 10*3/uL (1.4-4.0); Lymphocytes % 8.7 % (21.3-54.2); Mean Corpuscular Volume 96.6 FL (87-102); Mean Platelet Volume 10.9 FL (9.6-12.0); Monocytes # 0.1 10*3/uL (0.11-0.8); Monocytes % 1.6 % (1.7-12.7); Neutrophils % 88.6 % (38.7-73.9); Platelet Count 86 T/CUMM (130-400); Red Blood Count 2.35 MC/CUMM (3.8-5.5); Red Cell Distribution Width 20.6 % (9.3-17.3); White Blood Count 5.6 T/CUMM (4-12)
[2021-07-23 05:56] LABS: Albumin 1.2 G/DL (3.4-5.0); Bilirubin,Total 2.5 MG/DL (0.20-1.00); Calcium 7.9 MG/DL (8.5-10.1); Osmolality,Calculated 287.8 MOS/KG (273-304); Potassium 4.1 MMOL/L (3.5-5.1); Total Protein 5.8 G/DL (6.4-8.2)
[2021-07-23 06:31] LABS: Acanthocytes Few; Platelet Estimate Decreased; Poikilocytosis Slight
[2021-07-23] MEDS ORDERED: MAGNESIUM SULF RIDER 2 GM/50 ML PREMIX IV ONE (08:48)
[2021-07-23] MEDS ORDERED: INSULIN GLARGINE 100 UNIT/ML SUBCUT SCH (09:00)
[2021-07-23] MEDS: LACTULOSE 20 GM/30 ML UDCUP PO SCH (09:05)
[2021-07-23] MEDS: PANTOPRAZOLE 40 MG TABLET PO SCH (09:07)
[2021-07-23] MEDS: RIFAXIMIN 550 MG TABLET PO SCH (09:07)
[2021-07-23] MEDS: amLODIPine 10 MG TABLET PO SCH (09:08)
[2021-07-23] MEDS: SPIRONOLACTONE 100 MG TABLET PO SCH (09:08)
[2021-07-23] MEDS: INSULIN LISPRO 100 UNIT/ML SUBCUT SCH ×6 (09:09→16:18)
[2021-07-23] MEDS: LIDOCAINE 5% PATCH TRANSDERM SCH (11:50)
[2021-07-23] MEDS: FERRIC GLUCONATE COMPLEX 125 MG in SODIUM CHLORIDE 0.9% 100 ML IV SCH (12:13)
[2021-07-23] MEDS: FUROSEMIDE 20 MG/2 ML VIAL IV SCH (12:13)
[2021-07-23] MEDS: ONDANSETRON 4 MG/2 ML VIAL IV PRN (13:13)
[2021-07-23] MEDS ORDERED: LACTULOSE 20 GM/30 ML UDCUP PO SCH (15:00)
[2021-07-23] MEDS ORDERED: FUROSEMIDE 20 MG TABLET PO SCH (16:00)
[2021-07-23 18:01] VITALS: BP 154/57
[2021-07-24 13:01] LABS: Hb A 96.8 % (95.8-98.0); Hb A2 1.8 % (2.0-3.3); Hb F 1.4 % (0.0-0.9)
[2021-07-24 13:52] LABS: Hemoglobin A1 (Alkaline) 94.6 % (96.5-98.5); Hemoglobin A2 (Alkaline) 1.6 % (1.5-3.5)
[2021-07-24 13:53] LABS: Hemoglobin F (Alkaline) 3.8 %
== END 2021-07-23 18:13 | disposition home health service (06) | DRG 812 ==
LOC: N.3E → SUATTDRO 16:27
PROVIDERS: ADMIT Internal Medicine; ATTEND Family Medicine

== ENCOUNTER 2021-11-07 07:56 | Inpatient (IN) ==
[2021-11-07] MEDS ORDERED: THIAMINE 200 MG/2 ML VIAL IV STA (08:00)
[2021-11-07 08:27] LABS: Basophils % 0.5 % (0.0-0.8); Eosinophils # 0.1 10*3/uL (0.0-0.87); Eosinophils % 0.6 % (0.00-10.9); Hemoglobin 10.1 GM/DL (12.0-16.0); Immature Granulocytes % 0.6 %; Immature Granulocytes Absolute 0.05 #; Lymphocytes # 1.1 10*3/uL (1.4-4.0); Lymphocytes % 12.3 % (21.3-54.2); Mean Corpuscular HGB Conc 34.8 GM/DL (32-36); Mean Corpuscular Volume 95.7 FL (87-102); Mean Platelet Volume 10.1 FL (9.6-12.0); Monocytes # 0.4 10*3/uL (0.11-0.8); Monocytes % 4.8 % (1.7-12.7); Neutrophils % 81.2 % (38.7-73.9); Platelet Count 139 T/CUMM (130-400); Red Blood Count 3.03 MC/CUMM (3.8-5.5); Red Cell Distribution Width 20.8 % (9.3-17.3); White Blood Count 8.8 T/CUMM (4-12)
[2021-11-07 08:38] LABS: INR 1.1; PT Patient Result 12.2 SECS (10.1-12.1); Partial Thromboplastin Time 24.9 SECS (23.7-32.9)
[2021-11-07 08:48] LABS: Prolactin 1.7 ng/mL (2.8-29.2)
[2021-11-07 08:51] LABS: Alanine Aminotransferase 32 U/L (13-56); Albumin 1.8 G/DL (3.4-5.0); Alkaline Phosphatase 153 U/L (45-117); Aspartate Amino Transferase 40 U/L (0-37); Blood Urea Nitrogen 50 MG/DL (7-18); Calcium 9.2 MG/DL (8.5-10.1); Carbon Dioxide 21 MMOL/L (21-32); Chloride 112 MMOL/L (98-107); Glucose 104 MG/DL (74-106); Osmolality,Calculated 293.3 MOS/KG (273-304); Sodium 141 MMOL/L (136-145); Total Protein 7.1 G/DL (6.4-8.2)
[2021-11-07 09:15] LABS: Bacteria,Urine Occasional /HPF (Few); Bilirubin,Urine Negative (Negative); Blood, Urine Large mg/dL (Negative); Glucose,Urine (UA) Negative (Negative); Ketones,Urine Negative (Negative); Nitrite,Urine Negative (Negative); Protein,Urine 100 mg/dL (Negative); RBC,Urine 16 /HPF (0-4); Squamous Epithelial Cell,Urine Moderate /HPF (0-10); Urine Appearance Clear (Clear); Urine Color Yellow (Yellow); Urine Urobilinogen 0.2 eU/dL (<2.0); Urine pH 5.5 (4.5-8.0)
[2021-11-07 09:23] LABS: Barbiturates Screen,Urine Negative (Negative); Benzodiazepines Screen,Urine Negative (Negative); Cannabinoid Screen,Urine Negative (Negative); Opiate Screen,Urine Negative (Negative); Phencyclidine Screen,Urine Negative (Negative)
[2021-11-07] MEDS ORDERED: SODIUM CHLORIDE 0.9% 1,000 ML IV STA (09:48)
[2021-11-07] MEDS ORDERED: DEXTROSE 10% 250 ML BAG IV PRN (10:02)
[2021-11-07] MEDS ORDERED: GLUCAGON 1 MG VIAL IM PRN (10:02)
[2021-11-07] MEDS ORDERED: ALBUTEROL/IPRATROPIUM 3 ML NEB RESP TX PRN (10:53)
[2021-11-07 10:59] LABS: VLDL Cholesterol 10.6 MG/DL
[2021-11-07] MEDS ORDERED: LACTULOSE 20 GM/30 ML UDCUP PO SCH (11:00)
[2021-11-07] MEDS: LACTATED RINGERS 1,000 ML IV SCH (11:58)
[2021-11-07] MEDS: INSULIN LISPRO 100 UNIT/ML SUBCUT SCH ×4 (11:59→23:15)
[2021-11-07] MEDS ORDERED: LIDOCAINE 2% VISCOUS 100 ML BOTTLE ONE (12:42)
[2021-11-07] MEDS: LACTULOSE 20 GM/30 ML UDCUP PO SCH ×5 (14:16→21:26)
[2021-11-07] MEDS: ONDANSETRON 4 MG/2 ML VIAL IV PRN ×2 (17:23→21:03)
[2021-11-07] MEDS: cefTRIAXone 1,000 MG in SODIUM CHLORIDE 0.9% 100 ML IV SCH (17:23)
[2021-11-07] MEDS: RIFAXIMIN 550 MG TABLET PO SCH (20:57)
[2021-11-07] MEDS: PANTOPRAZOLE 40 MG VIAL IV SCH (20:57)
[2021-11-08] MEDS: INSULIN LISPRO 100 UNIT/ML SUBCUT SCH ×4 (00:46→18:46)
[2021-11-08] MEDS: LACTATED RINGERS 1,000 ML IV SCH ×3 (00:46→13:02)
[2021-11-08] MEDS: ONDANSETRON 4 MG/2 ML VIAL IV PRN ×3 (01:43→09:58)
[2021-11-08] MEDS: LACTULOSE 20 GM/30 ML UDCUP PO SCH ×6 (02:30→21:44)
[2021-11-08 06:01] LABS: Basophils % 0.2 % (0.0-0.8); Hematocrit 23.4 VOL% (35.7-47.0); Hemoglobin 7.7 GM/DL (12.0-16.0); Immature Granulocytes % 0.6 %; Immature Granulocytes Absolute 0.09 #; Lymphocytes # 1.1 10*3/uL (1.4-4.0); Lymphocytes % 7.3 % (21.3-54.2); Mean Corpuscular HGB Conc 32.9 GM/DL (32-36); Mean Corpuscular Volume 100.9 FL (87-102); Mean Platelet Volume 10.3 FL (9.6-12.0); Monocytes # 0.4 10*3/uL (0.11-0.8); Neutrophils % 88.9 % (38.7-73.9); Platelet Count 108 T/CUMM (130-400); Red Blood Count 2.32 MC/CUMM (3.8-5.5); Red Cell Distribution Width 21.6 % (9.3-17.3); White Blood Count 14.6 T/CUMM (4-12)
[2021-11-08 06:25] LABS: Albumin 1.6 G/DL (3.4-5.0); Bilirubin,Total 1.1 MG/DL (0.20-1.00); Calcium 8.8 MG/DL (8.5-10.1); Potassium 3.2 MMOL/L (3.5-5.1); Total Protein 6.2 G/DL (6.4-8.2)
[2021-11-08] MEDS: RIFAXIMIN 550 MG TABLET PO SCH ×2 (08:57→20:20)
[2021-11-08] MEDS: PANTOPRAZOLE 40 MG VIAL IV SCH ×2 (08:57→20:20)
[2021-11-08] MEDS ORDERED: PANTOPRAZOLE 40 MG TABLET PO SCH (09:00)
[2021-11-08] MEDS: cefTRIAXone 1,000 MG in SODIUM CHLORIDE 0.9% 100 ML IV SCH (18:15)
[2021-11-09] MEDS: INSULIN LISPRO 100 UNIT/ML SUBCUT SCH ×4 (00:03→17:55)
[2021-11-09] MEDS: LACTULOSE 20 GM/30 ML UDCUP PO SCH ×4 (02:46→22:00)
[2021-11-09 06:07] LABS: Basophils % 0.4 % (0.0-0.8); Eosinophils # 0.1 10*3/uL (0.0-0.87); Eosinophils % 1.7 % (0.00-10.9); Hematocrit 22.9 VOL% (35.7-47.0); Hemoglobin 7.3 GM/DL (12.0-16.0); Immature Granulocytes % 0.3 %; Immature Granulocytes Absolute 0.02 #; Lymphocytes # 1.2 10*3/uL (1.4-4.0); Lymphocytes % 16.4 % (21.3-54.2); Mean Corpuscular HGB Conc 31.9 GM/DL (32-36); Mean Platelet Volume 9.8 FL (9.6-12.0); Monocytes # 0.3 10*3/uL (0.11-0.8); Monocytes % 4.4 % (1.7-12.7); Neutrophils % 76.8 % (38.7-73.9); Platelet Count 93 T/CUMM (130-400); Red Blood Count 2.18 MC/CUMM (3.8-5.5); Red Cell Distribution Width 22.1 % (9.3-17.3); White Blood Count 7.1 T/CUMM (4-12)
[2021-11-09] MEDS: LACTATED RINGERS 1,000 ML IV SCH ×2 (06:26→20:10)
[2021-11-09 06:29] LABS: Albumin 1.8 G/DL (3.4-5.0); Bilirubin,Total 1.1 MG/DL (0.20-1.00); Calcium 9.2 MG/DL (8.5-10.1); Potassium 3.1 MMOL/L (3.5-5.1); Total Protein 6.4 G/DL (6.4-8.2)
[2021-11-09] MEDS: RIFAXIMIN 550 MG TABLET PO SCH ×2 (08:50→22:01)
[2021-11-09] MEDS: PANTOPRAZOLE 40 MG VIAL IV SCH ×2 (08:50→22:00)
[2021-11-09] MEDS ORDERED: DEXTROSE 5% 1,000 ML IV SCH (09:30)
[2021-11-09] MEDS ORDERED: cloNIDine 0.3 MG/24 HR PATCH TRANSDERM SCH (11:00)
[2021-11-09] MEDS: ONDANSETRON 4 MG/2 ML VIAL IV PRN ×2 (11:46→17:24)
[2021-11-09] MEDS: INSULIN NPH 100 UNIT/ML SUBCUT SCH (16:05)
[2021-11-09] MEDS: cefTRIAXone 1,000 MG in SODIUM CHLORIDE 0.9% 100 ML IV SCH (17:26)
[2021-11-09] MEDS ORDERED: INSULIN REGULAR 100 UNIT/ML SUBCUT ONE (20:05)
[2021-11-10] MEDS: LACTULOSE 20 GM/30 ML UDCUP PO SCH ×5 (03:18→22:45)
[2021-11-10 06:20] LABS: Basophils % 0.4 % (0.0-0.8); Eosinophils # 0.3 10*3/uL (0.0-0.87); Hematocrit 21.5 VOL% (35.7-47.0); Hemoglobin 6.9 GM/DL (12.0-16.0); Immature Granulocytes % 0.5 %; Immature Granulocytes Absolute 0.04 #; Lymphocytes # 1.2 10*3/uL (1.4-4.0); Lymphocytes % 14.1 % (21.3-54.2); Mean Corpuscular HGB Conc 32.1 GM/DL (32-36); Mean Corpuscular Volume 104.4 FL (87-102); Monocytes # 0.5 10*3/uL (0.11-0.8); Monocytes % 5.5 % (1.7-12.7); Neutrophils % 76.5 % (38.7-73.9); Platelet Count 87 T/CUMM (130-400); Red Blood Count 2.06 MC/CUMM (3.8-5.5); Red Cell Distribution Width 21.7 % (9.3-17.3); White Blood Count 8.4 T/CUMM (4-12)
[2021-11-10 06:37] LABS: Albumin 1.6 G/DL (3.4-5.0); Bilirubin,Total 0.9 MG/DL (0.20-1.00); Calcium 8.4 MG/DL (8.5-10.1); Osmolality,Calculated 317.2 MOS/KG (273-304); Potassium 3.1 MMOL/L (3.5-5.1); Total Protein 5.8 G/DL (6.4-8.2)
[2021-11-10 06:44] LABS: Platelet Estimate Decreased
[2021-11-10] MEDS: INSULIN LISPRO 100 UNIT/ML SUBCUT SCH ×4 (07:43→17:56)
[2021-11-10] MEDS: INSULIN NPH 100 UNIT/ML SUBCUT SCH (09:19)
[2021-11-10] MEDS: RIFAXIMIN 550 MG TABLET PO SCH ×2 (09:21→22:45)
[2021-11-10] MEDS: OMEPRAZOLE ODT 20 MG TABLET PO SCH ×2 (09:24→22:45)
[2021-11-10] MEDS: LACTATED RINGERS 1,000 ML IV SCH (10:37)
[2021-11-10] MEDS: ONDANSETRON 4 MG/2 ML VIAL IV PRN (15:52)
[2021-11-10] MEDS: cefTRIAXone 1,000 MG in SODIUM CHLORIDE 0.9% 100 ML IV SCH (17:57)
[2021-11-11] MEDS: INSULIN LISPRO 100 UNIT/ML SUBCUT SCH ×4 (00:45→18:29)
[2021-11-11] MEDS: LACTATED RINGERS 1,000 ML IV SCH ×2 (04:04→17:46)
[2021-11-11] MEDS: LACTULOSE 20 GM/30 ML UDCUP PO SCH ×6 (04:07→22:38)
[2021-11-11] MEDS: ONDANSETRON 4 MG/2 ML VIAL IV PRN ×3 (09:47→17:47)
[2021-11-11] MEDS: OMEPRAZOLE ODT 20 MG TABLET PO SCH ×2 (09:48→22:38)
[2021-11-11] MEDS: RIFAXIMIN 550 MG TABLET PO SCH ×2 (09:48→22:38)
[2021-11-11] MEDS: cefTRIAXone 1,000 MG in SODIUM CHLORIDE 0.9% 100 ML IV SCH (17:51)
[2021-11-12] MEDS: LACTULOSE 20 GM/30 ML UDCUP PO SCH ×6 (02:22→21:10)
[2021-11-12] MEDS: INSULIN LISPRO 100 UNIT/ML SUBCUT SCH ×4 (04:48→18:12)
[2021-11-12 06:09] LABS: Calcium 7.6 MG/DL (8.5-10.1); Osmolality,Calculated 304.6 MOS/KG (273-304); Potassium 4.3 MMOL/L (3.5-5.1)
[2021-11-12] MEDS: OMEPRAZOLE ODT 20 MG TABLET PO SCH ×2 (09:36→21:10)
[2021-11-12] MEDS: ONDANSETRON 4 MG/2 ML VIAL IV PRN ×2 (09:36→17:39)
[2021-11-12] MEDS: RIFAXIMIN 550 MG TABLET PO SCH ×2 (09:36→21:10)
[2021-11-12] MEDS: LACTATED RINGERS 1,000 ML IV SCH ×2 (09:37→21:13)
[2021-11-12] MEDS: cefTRIAXone 1,000 MG in SODIUM CHLORIDE 0.9% 100 ML IV SCH (17:47)
[2021-11-13] MEDS: INSULIN LISPRO 100 UNIT/ML SUBCUT SCH ×4 (00:21→18:32)
[2021-11-13] MEDS: LACTULOSE 20 GM/30 ML UDCUP PO SCH ×7 (00:21→20:45)
[2021-11-13] MEDS: RIFAXIMIN 550 MG TABLET PO SCH ×2 (08:56→20:34)
[2021-11-13] MEDS: OMEPRAZOLE ODT 20 MG TABLET PO SCH ×2 (08:56→20:34)
[2021-11-13] MEDS: LACTATED RINGERS 1,000 ML IV SCH (12:27)
[2021-11-13] MEDS: cefTRIAXone 1,000 MG in SODIUM CHLORIDE 0.9% 100 ML IV SCH (16:28)
[2021-11-14] MEDS: LACTATED RINGERS 1,000 ML IV SCH ×2 (01:47→14:52)
[2021-11-14] MEDS: INSULIN LISPRO 100 UNIT/ML SUBCUT SCH ×4 (01:47→18:05)
[2021-11-14] MEDS: LACTULOSE 20 GM/30 ML UDCUP PO SCH ×6 (02:01→21:41)
[2021-11-14] MEDS: ONDANSETRON 4 MG/2 ML VIAL IV PRN ×3 (08:51→18:05)
[2021-11-14] MEDS: RIFAXIMIN 550 MG TABLET PO SCH ×2 (09:13→21:41)
[2021-11-14] MEDS: OMEPRAZOLE ODT 20 MG TABLET PO SCH ×2 (09:13→21:41)
[2021-11-14] MEDS: cefTRIAXone 1,000 MG in SODIUM CHLORIDE 0.9% 100 ML IV SCH (16:49)
[2021-11-15] MEDS: LACTULOSE 20 GM/30 ML UDCUP PO SCH ×3 (01:01→09:05)
[2021-11-15] MEDS: INSULIN LISPRO 100 UNIT/ML SUBCUT SCH ×2 (01:11→06:33)
[2021-11-15] MEDS: LACTATED RINGERS 1,000 ML IV SCH (03:25)
[2021-11-15] MEDS: ONDANSETRON 4 MG/2 ML VIAL IV PRN (08:49)
[2021-11-15 08:52] VITALS: BP 133/60
[2021-11-15] MEDS: OMEPRAZOLE ODT 20 MG TABLET PO SCH (09:01)
== END 2021-11-15 09:42 | disposition hospice, home (50) | DRG 441 ==
LOC: N.ED 07:56 → SUATTDRO 09:58 → N.EDINP 09:58 → N.5E 14:47
PROVIDERS: ADMIT Internal Medicine; ATTEND Internal Medicine